=== PATIENT | male | born 1945 | race Caucasian/White ===

== ENCOUNTER 2020-03-05 14:14 | Outpatient (CLI) | payer OTHER, SELFPAY ==
--- NOTE | ~2020-03-05 | CT_ITS ---
EXAMINATION:CT lung screening DATE: 03/05/2020 15:17 INDICATION: Personal history of tobacco dependence. Smoker who quit 12 years ago with 50 pack year hi story. TECHNIQUE: Computed tomography (CT) of the chest was performed without intravenous contrast. Automate d exposure control and iterative reconstruction technique were employed. The dose-length product (DLP ) was 225.47 mGy-cm. COMPARISON: Chest CT 03/14/2018 FINDINGS: There is moderate emphysema. There is mild atelectasis bilaterally. Calcified right lung no dules are consistent with old granulomatous disease. There is a stable 6 mm nodule in left lower lobe . No pleural effusion. The heart size is normal. There are coronary artery calcifications. There are calcifications of the aortic valve. No pericardial effusion. There is diffuse hepatic steatosis. Ther e is moderate thoracic spondylosis. IMPRESSION: 1. Lung-RADS category 2: Benign appearance or behavior. Continue annual screening with noncontrast lo w-dose chest CT in 12 months. Reviewed, dictated and finalized at location B. RAL REPAIRER IMPRESSION: 1. Lung-RADS category 2: Benign appearance or behavior. Continue annual screeni ng with noncontrast low-dose chest CT in 12 months.
--- NOTE | ~2020-03-05 | US_ITS ---
EXAMINATION: US arterial ankle brachial ind DATE: 03/05/2020 15:08 INDICATION: Peripheral vascular disease. TECHNIQUE: Segmental pressures and plethysmographic and Doppler waveforms of the brachial and lower e xtremity arteries were obtained. COMPARISON: None. FINDINGS: Right and left brachial artery pressures were unable to be obtained due to inability to occlude the v essels. The automated blood pressure seen reading at the conclusion of the exam the left brachial art alberta pressure was 177 mmHg . The right ankle-brachial index (BRUNO) was unable to be obtained due to inability to occlude the vessel s at the right ankle (normal >= 0.9-1.0). The right great toe-brachial index (TBI) is 0.86 (normal >= 0.65). Arterial Doppler waveforms are biphasic with brisk systolic upstrokes at both the right poste rior tibial and dorsalis pedis arteries. The left BRUNO was unable to be obtained due to inability to occlude the vessels at the left ankle. The left TBI is 0.05. Arterial Doppler waveforms are biphasic with brisk systolic upstrokes at both the left posterior tibial and dorsalis pedis arteries. IMPRESSION: 1. Very limited study due to inability to occlude the vessels at either upper arm arthritis of the le ft or right ankles which could be due to either high pressures and/or vessel wall calcification. Toe brachial indices are based upon pressure measurement obtained at the left arm with automated blood pr essure machine. 2. No hemodynamically significant arterial occlusive disease to the right lower limb with normal righ t TBI. 2. Severely decreased left TBI but with brisk systolic upstrokes at both the left posterior tibial an d dorsalis pedis arteries. Reviewed, dictated and finalized at location A. INE I CUTTER IMPRESSION: 1. Very limited study due to inability to occlude the vessels at either upper a rm arthritis of the left or right ankles which could be due to either high pres sures and/or vessel wall calcification. Toe brachial indices are based upon pre ssure measurement obtained at the left arm with automated blood pressure perla e. 2. No hemodynamically significant arterial occlusive disease to the right lower limb with normal right TBI. 2. Severely decreased left TBI but with brisk systolic upstrokes at both the le ft posterior tibial and dorsalis pedis arteries.
== END 2020-03-05 14:15 | disposition home or self-care (01) ==
PROVIDERS: PCP Internal Medicine; Visit Provider Internal Medicine
DX: Z12.2 Encounter for screening for malignant neoplasm of respiratory organs (principal); Z87.891 Personal history of nicotine dependence; I73.9 Peripheral vascular disease, unspecified
CPT/HCPCS: 71271; 93922

== ENCOUNTER 2021-02-09 12:57 | Outpatient (CLI) | payer OTHER, SELFPAY ==
[2021-02-09 13:27] LABS: Anion Gap 11 mmol/L (8-16); Blood Urea Nitrogen 18 mg/dL (9-20); Calcium 9.4 mg/dL (8.4-10.2); Carbon Dioxide 23 mmol/L (22-30); Chloride 103 mmol/L (98-107); Estimated Glomerular Filt Rate 59; Glucose 127 mg/dL (65-110); Potassium 4.3 mmol/L (3.4-5.0); Sodium 137 mmol/L (137-145)
== END 2021-02-09 12:58 | disposition home or self-care (01) ==
LOC: ANHSURGERY 12:58
PROVIDERS: Anesthesiology; PCP Internal Medicine; Visit Provider Plastic Surgery
DX: E11.65 Type 2 diabetes mellitus with hyperglycemia (principal); Z01.818 Encounter for other preprocedural examination
CPT/HCPCS: 36415; 80048

== ENCOUNTER 2021-02-12 00:53 | Day surgery (SDC) | payer OTHER, SELFPAY ==
--- NOTE | 2021-02-04 09:38 | PC.NURSE ---
Report to the Outpatient Waiting Room, entrance under the green pavilion located off [facility], at time _8:15AM on date _02/12/21 . OR Time: __10:15AM . - You and your visitor will be asked a series of questions to screen for COVID 19 for your protection. - A mask is required within the hospital. - Only one visitor is allowed at this time. Patient visitors will be guided where to wait when not with patient. Preoperative COVID Testing Requirements: No COVID Test needed if: (proof is required; if not received patient will have Rapid Test prior to entry) - Patient has received COVID Vaccine at least 14 days prior to procedure date or - Patient has positive COVID test result within last 90 days of surgery date. COVID Test needed if above criteria is not met If not COVID vaccinated a COVID test must be conducted within 72 hours of surgery and patient is asked to isolate self from time of testing until procedure. You will go to the [facility] Testing Site for your COVID testing. The [facility] is located at the corner of [address] [facility]. You will only be called if COVID results are positive and your surgeon may reschedule your elective surgery date. Patients may have clear liquids (water, carbonated beverages, clear teas, apple juice) until 3 hours prior to surgery with a maximum of 20 ounces. - No food from midnight until time of surgery - Infants may have breast milk until 4 hours before surgery, formula 6 hours prior to surgery. - Children will be allowed to drink immediately following surgery. If applicable, please bring a bottle or sippy cup to assist with drinking. Juice, water, soda, and popsicles are readily available. For infants on formula, please bring formula the day of surgery. Pacifiers are allowed. Take the following medications with a SIP of water the morning of surgery: ___AMLODIPINE, SPIRIVA INHALER Medications to discontinue per physician ____ALL VITAMINS/SUPPLEMENTS 3 DAYS PRE-OP Date to take last dose 02/08/[address] ELLINGTON TO CONT. ASPIRIN AND PLAVIX Please no make-up, nail lithuanian, hairspray, perfume, deodorant, or body powder the day of surgery. No jewelry (including any body piercings) or valuables the day of surgery, leave them at home. Please take a shower or bath the night before, or the morning of, surgery with an antibacterial soap. Wear comfortable, loose fitting clothing. Children are encouraged to wear pajamas. - Jewelry must be removed prior to entering the operating room. Rings and piercings that are not removed may be cut off. - The hospital will not accept responsibility for valuables. - Please leave all valuables, including medications, at home the day of surgery. If you are going home after surgery, a licensed van driver helper must drive you home. - NO public transportation without another adult. - We recommend that an adult stay with you for 24 hours following discharge. - We also recommend that you do not drive, make important decision, drink alcoholic beverages, or take any drugs that were not prescribed by your health care provider for at least 24 hours after your discharge time. For Pediatric surgeries, we recommend two adults accompany the child home (only one inside the building at this time). Follow any additional instructions given to you from your surgeon. Telephone instructions given to ___PATIENT and asked if any additional questions and then verbalized understanding. Patient advised to call surgeon office or pre surgery nurse liaison [phone] if any additional questions.
--- NOTE | 2021-02-04 09:42 | PC.NURSE ---
Report to the Outpatient Waiting Room, entrance under the green pavilion located off [facility], at time _8:15AM____ on date . OR Time: __10:15AM . - You and your visitor will be asked a series of questions to screen for COVID 19 for your protection. - A mask is required within the hospital. - Only one visitor is allowed at this time. Patient visitors will be guided where to wait when not with patient. Preoperative COVID Testing Requirements: No COVID Test needed if: (proof is required; if not received patient will have Rapid Test prior to entry) - Patient has received COVID Vaccine at least 14 days prior to procedure date or - Patient has positive COVID test result within last 90 days of surgery date. COVID Test needed if above criteria is not met If not COVID vaccinated a COVID test must be conducted within 72 hours of surgery and patient is asked to isolate self from time of testing until procedure. You will go to the [facility] Testing Site for your COVID testing. [facility] is located at the corner of [address] [facility]. You will only be called if COVID results are positive and your surgeon may reschedule your elective surgery date. Patients may have clear liquids (water, carbonated beverages, clear teas, apple juice) until 3 hours prior to surgery with a maximum of 20 ounces. - No food from midnight until time of surgery - Infants may have breast milk until 4 hours before surgery, infant formula 6 hours prior to surgery. - Children will be allowed to drink immediately following surgery. If applicable, please bring a bottle or sippy cup to assist with drinking. Juice, water, soda, and popsicles are readily available. For infants on formula, please bring formula the day of surgery. Pacifiers are allowed. Take the following medications with a SIP of water the morning of surgery: __AMLODIPINE, SPIRIVA__INHALER Medications to discontinue per physician ALL VITAMINS/SUPPLEMENTS 3 DAYS PRE-OP Date to take last dose 02/08/21 ORDER ON CHART FOR PT TO CONTINUE PLAVIX & ASPIRIN PER DR ELLINGTON Please no make-up, nail japanese, hairspray, perfume, deodorant, or body powder the day of surgery. No jewelry (including any body piercings) or valuables the day of surgery, leave them at home. Please take a shower or bath the night before, or the morning of, surgery with an antibacterial soap. Wear comfortable, loose fitting clothing. Children are encouraged to wear pajamas. - Jewelry must be removed prior to entering the operating room. Rings and piercings that are not removed may be cut off. - The hospital will not accept responsibility for valuables. - Please leave all valuables, including medications, at home the day of surgery. If you are going home after surgery, a licensed p d driver must drive you home. - NO public transportation without another adult. - We recommend that an adult stay with you for 24 hours following discharge. - We also recommend that you do not drive, make important decision, drink alcoholic beverages, or take any drugs that were not prescribed by your health care provider for at least 24 hours after your discharge time. For Pediatric surgeries, we recommend two adults accompany the child home (only one inside the building at this time). Follow any additional instructions given to you from your surgeon. Telephone instructions given to ___PATIENT and asked if any additional questions and then verbalized understanding. Patient advised to call surgeon office or pre surgery nurse liaison [phone] if any additional questions.
--- NOTE | 2021-02-04 09:46 | PC.NURSE ---
Report to the Outpatient Waiting Room, entrance under the green pavilion located off [facility], at time __8:15AM on date _02/12/21 . OR Time: __10:15AM . - You and your visitor will be asked a series of questions to screen for COVID 19 for your protection. - A mask is required within the hospital. - Only one visitor is allowed at this time. Patient visitors will be guided where to wait when not with patient. Preoperative COVID Testing Requirements: No COVID Test needed if: (proof is required; if not received patient will have Rapid Test prior to entry) - Patient has received COVID Vaccine at least 14 days prior to procedure date or - Patient has positive COVID test result within last 90 days of surgery date. COVID Test needed if above criteria is not met If not COVID vaccinated a COVID test must be conducted within 72 hours of surgery and patient is asked to isolate self from time of testing until procedure. You will go to the [facility] [facility] Testing Site for your COVID testing. The [facility] is located at the corner of [address] [facility]. You will only be called if COVID results are positive and your surgeon may reschedule your elective surgery date. Patients may have clear liquids (water, carbonated beverages, clear teas, apple juice) until 3 hours prior to surgery with a maximum of 20 ounces. - No food from midnight until time of surgery - Infants may have breast milk until 4 hours before surgery, formula 6 hours prior to surgery. - Children will be allowed to drink immediately following surgery. If applicable, please bring a bottle or sippy cup to assist with drinking. Juice, water, soda, and popsicles are readily available. For infants on formula, please bring formula the day of surgery. Pacifiers are allowed. Take the following medications with a SIP of water the morning of surgery: __AMLODIPINE, SPIRIVA INHALER Medications to discontinue per physician ALL VITAMINS/SUPPLEMENTS 3 DAYS PRE-OP Date to take last dose 02/08/21 ORDER ON CHART TO CONTINUE PLAVIX & ASPIRIN PER DR ELLINGTON Please no make-up, nail micronesian, hairspray, perfume, deodorant, or body powder the day of surgery. No jewelry (including any body piercings) or valuables the day of surgery, leave them at home. Please take a shower or bath the night before, or the morning of, surgery with an antibacterial soap. Wear comfortable, loose fitting clothing. Children are encouraged to wear pajamas. - Jewelry must be removed prior to entering the operating room. Rings and piercings that are not removed may be cut off. - The hospital will not accept responsibility for valuables. - Please leave all valuables, including medications, at home the day of surgery. If you are going home after surgery, a licensed team truck driver must drive you home. - NO public transportation without another adult. - We recommend that an adult stay with you for 24 hours following discharge. - We also recommend that you do not drive, make important decision, drink alcoholic beverages, or take any drugs that were not prescribed by your health care provider for at least 24 hours after your discharge time. For Pediatric surgeries, we recommend two adults accompany the child home (only one inside the building at this time). Follow any additional instructions given to you from your surgeon. Telephone instructions given to ___PATIENT and asked if any additional questions and then verbalized understanding. Patient advised to call surgeon office or pre surgery nurse liaison [phone] if any additional questions.
[2021-02-04 13:15] VITALS: BMI 29.9
--- NOTE | 2021-02-12 07:12 | WPDHPUPDATE1 ---
History and Physical Update Update Date/Time: 02/12/21 07:12 History and Physical has been reviewed, including an updated exam of the patient. There are NO changes in the patient's condition. Risks, benefits, and alternatives have been discussed and questions answered. Patient agrees to proceed with procedure.
[2021-02-12 08:06] VITALS: BMI 29.5
[2021-02-12 08:30] VITALS: BP 184/76; PULSE 58; RESP 18; TEMP 36.4; O2SAT 97
[2021-02-12 08:30] LABS: Glucose Point of Care 143 mg/dl (65-105)
[2021-02-12] MEDS: LACTATED RINGERS 1,000 ML 30 ML IV CONT (08:35)
--- NOTE | 2021-02-12 08:43 | WPDANESEPPF ---
Anes - Initial Pre Proc Eval Procedure: Operation Date: 02/12/21 10:15 Proposed Procedures p Left Open Carpal Tunnel Release - Peter Benitez MD Date/Time: 02/12/21 08:43 Surgeon: Peter Benitez MD Pre Op Diagnosis: left carpal tunnel syndrome Patient Data Age: 75 Gender: M Height: 1.88 m Weight: 104.2 kg Allergies Allergy/AdvReac Type Severity Reaction Status Date / Time No Known Allergies Allergy Verified 02/12/21 08:21 Home Medications Medication Instructions Recorded Confirmed Type aspirin 81 mg tablet,delayed 81 mg PO DAILY 06/12/19 02/04/21 History release tiotropium bromide 2.5 1 puff INHALATION QID 06/12/19 02/04/21 History mcg/actuation mist for inhalation atorvastatin 20 mg tablet 20 mg PO DAILY #90 tablet 09/05/20 02/04/21 Rx omeprazole 40 mg capsule,delayed 40 mg PO DAILY #90 cap 11/26/20 02/04/21 Rx release amlodipine 2.5 mg PO QAM 02/04/21 02/04/21 History cholecalciferol (vitamin D3) 50 mcg PO DAILY 02/04/21 02/04/21 History clopidogrel 75 mg PO DAILY 02/04/21 02/04/21 History finasteride 5 mg PO DAILY 02/04/21 02/04/21 History eefhsnqb-ftwyx-txl 149-hyal ac 1 tablet PO BID 02/04/21 02/04/21 History [Glucos Chond Cplx Advanced] losartan 50 mg PO QAM 02/04/21 02/04/21 History metformin 500 mg PO BID 02/04/21 02/04/21 History multivitamin [Daily Multiple] 1 tablet PO DAILY 02/04/21 02/04/21 History omega-3 fatty acids [Fish Oil] 1,000 mg PO BID 02/04/21 02/04/21 History tamsulosin 0.4 mg PO DAILY 02/04/21 02/04/21 History vitamin E 1,000 unit PO DAILY 02/04/21 02/04/21 History Laboratory Tests 02/12/21 08:25 POC Capillary Glucose 143 mg/dl H mg/dl (65-105) Patient hx anesthesia problems: none Family hx anesthesia problems: none Results Review: All pre-operative results and documents have been reviewed as part of the pre-operative evaluation. [facility] Past Medical History Medical History Actinic keratitis Surgical History Surgical History (Updated 02/12/21 @ 08:47 by Efrain Valadez MD) H/O carotid endarterectomy Family History Family History Mother Patient's mother is Sibling Patient's brother is Social History Social History Smoking packs per day: 1 Smoking cigarettes per day: 20.0 Years smoked: 50 Smoking pack-years: 50.00 Smoking status: Former smoker Tobacco type: cigarettes, pipe and cigars Second hand tobacco smoke exposure: No Smoking end date: 02/15/04 Alcohol intake: current Drinks per week: 3 Substance use: never Substance use type: does not use Living arrangements: alone Spiritual care concerns: No Anes - Eval Final PreProcedure Day of Procedure 02/12/21 08:43 Patient weight: overweight Heart: regular rate and rhythm Lungs: clear to auscultation Airway: Mallampati scale class II and other (dentures) Neurological: alert and oriented Last oral intake: >/= 8 hours ASA classification: III Emergent: no Anesthetic plan: proceed Anesthesia type and monitoring: general and standard monitoring Results Review: All pre-operative results and documents have been reviewed as part of the pre-operative evaluation. Informed Consent: The patient's anesthetic plan and its attendant risks and benefits were discussed with the patient/family/POA. Questions were solicited and answers provided to the satisfaction of the patient/family/POA.
[2021-02-12] MEDS: LIDO 1%/EPINEPHRINE 1:100,000 50 ML VIAL 10 ML INFILTRATE (10:09)
[2021-02-12] MEDS: BACITRACIN OINTMENT 15 GM TUBE 1 APPLIC TOPICAL (10:13)
[2021-02-12 10:21] VITALS: BP 163/98; PULSE 84; RESP 21; O2SAT 96
--- NOTE | 2021-02-12 10:27 | W.PM.PROC2 ---
Procedure Note - Detailed Date of Procedure 02/12/21 Pre-op Diagnosis left carpal tunnel syndrome Post-op Diagnosis same Procedure Performed Left open carpal tunnel release Surgeon Peter Benitez MD Anesthesia MAC Description of Procedure The right volar wrist was marked on the patient waiting in the holding area. He was transported to the operating room and placed supine on the operating table. The time-out was held confirmed. The extremity was prepped and draped in usual fashion. The site was remarked and locally infiltrated with 1% lidocaine with epinephrine. The tourniquet was elevated to 250 mmHg. The incision was made as marked on the palm dissection carried bluntly through the subcu tissue to the palmar aponeurosis. This was dissected bluntly and the carpal retinaculum was incised with a 15. Blade. Under 3 point retraction the ligament divided distally and proximally for complete release. The skin wound was closed with interrupted 4-0 nylon suture the usual bandage was applied. He is discharged from the operating room stable condition. He has instructions in wound care and follow-up. He was prescribed a prescription for hydrocodone 5/325 7. Estimated Blood Loss 0 Tourniquet Time 4 Drains No Packing No Pathology none sent Complications No immediate complications Condition stable Disposition same day
[2021-02-12 10:41] LABS: Glucose Point of Care 129 mg/dl (65-105)
[2021-02-12 10:50] VITALS: BP 150/60; PULSE 57; RESP 18
== END 2021-02-12 11:14 | disposition home or self-care (01) ==
PROVIDERS: PCP Internal Medicine; Visit Provider Plastic Surgery
PROC: (CPT 64721; principal; 2021-02-12 10:15)
DX: G56.02 Carpal tunnel syndrome, left upper limb (principal); Z79.82 Long term (current) use of aspirin; Z79.51 Long term (current) use of inhaled steroids; Z87.891 Personal history of nicotine dependence; Z79.84 Long term (current) use of oral hypoglycemic drugs
CPT/HCPCS: 64721; 36415; 80048; 82948; A9270; J2704; J7120

== ENCOUNTER 2021-09-16 05:24 | Emergency (ER) | payer OTHER, SELFPAY ==
[2021-09-16] VITALS (9 sets, daily range): BP systolic 121–137; BP diastolic 64–81; PULSE 66–94; RESP 13–20; TEMP 36.8; O2SAT 94–97
--- NOTE | ~2021-09-16 | XR_ITS ---
EXAMINATION: XR chest 1V portable DATE: 09/16/2021 06:06 INDICATION: Shortness of breath. COVID-19 pneumonia. TECHNIQUE: A single frontal view of the chest was obtained on 2 radiographs. COMPARISON: Chest CT 03/05/2020 FINDINGS: There are lucencies in the lungs, consistent with emphysema. There are mild airspace opacit ies in the lower lung zones. No pleural effusion or pneumothorax. The heart size is normal. IMPRESSION: 1. Mild airspace opacities in the lower lung zones, consistent with atelectasis versus pneumonia. 2. Emphysema. Reviewed, dictated and finalized at location A.
[2021-09-16] MEDS: SODIUM CHLORIDE 0.9% IV 1,000 ML 999 ML IV CONT (05:50)
[2021-09-16 06:01] LABS: Basophils Percent Auto 0.2 % (0.2-1.2); Eosinophils Absolute Auto 0.2 K/mm3 (0-0.3); Eosinophils Percent Auto 3.5 % (0-4.4); Hematocrit 43.3 % (42.0-52.0); Hemoglobin 14.2 g/dL (14.0-18.0); Immature Granulocyte Absolute 0.01 K/mm3 (0.00-0.031); Immature Granulocyte Percent A 0.2 % (0-0.5); Lymphocytes Absolute Auto 1.39 K/mm3 (0.9-3.2); Lymphocytes Percent Auto 24.4 % (18.3-44.2); Mean Corpuscular HGB Conc 32.8 g/dl (32-36); Mean Corpuscular Hemoglobin 30.5 pg (26-34); Mean Corpuscular Volume 93.1 fl (80-100); Mean Platelet Volume 9.9 fl (7.4-10.4); Monocytes Absolute Auto 0.6 K/mm3 (0.1-0.6); Monocytes Percent Auto 10.4 % (2.6-8.5); Neutrophils Absolute Auto 3.5 K/mm3 (1.3-6.7); Neutrophils Percent Auto 61.3 % (45.5-73.1); Platelet Count Result 179 k/mm3 (150-375); Red Blood Count 4.65 M/mm3 (4.6-6.20); Red Cell Distribution Width 14.3 % (11.5-14.5); White Blood Count 5.7 K/mm3 (4.5-10.0)
[2021-09-16 06:13] LABS: Anion Gap 14 mmol/L (8-16); Blood Urea Nitrogen 16 mg/dL (9-20); Calcium 8.6 mg/dL (8.4-10.2); Carbon Dioxide 22 mmol/L (22-30); Chloride 101 mmol/L (98-107); Estimated Glomerular Filt Rate > 60; Glucose 138 mg/dL (65-110); Potassium 4.2 mmol/L (3.4-5.0); Sodium 137 mmol/L (137-145)
--- NOTE | 2021-09-16 07:01 | PC.NURSE ---
Patient refuses to do ortho BP at this time because he is to short of breath
--- NOTE | 2021-09-16 07:11 | PC.NURSE ---
Patient report received from BRANDEE Simon. All questions answered and care of patient assumed.
--- NOTE | 2021-09-16 07:16 | ED.SOB ---
HPI - SOB/Dyspnea General Chief Complaint: Shortness of Breath/Dyspnea Stated Complaint: SOB, COVID + 09/14/21 Time Seen by Provider: 09/16/21 05:29 History of Present Illness HPI Narrative: Patient is a 75-year-old male who presents to the ER with shortness of breath. Reports he was laying down when he just felt very short of breath and thought he should come to the ER to be evaluated. He was diagnosed with COVID-19 on 09/13/2021. He does have some mild cough. No fevers or chills. No congestion or drainage. He is not on Paxlovid or any other antiviral as his primary care doctor did not prescribe 1 to him. Patient reports no exertional decline. He is not oxygen dependent and has not been found to be hypoxic. Related Data Home Medications Medication Instructions Recorded Confirmed aspirin 81 mg tablet,delayed 81 mg PO DAILY 06/12/19 08/05/21 release (Adult Low Dose Aspirin) tiotropium bromide 2.5 1 puff inhalation QID 06/12/19 08/05/21 mcg/actuation mist for inhalation (Spiriva Respimat) cholecalciferol (vitamin D3) 50 50 mcg PO DAILY 02/04/21 08/05/21 mcg (2,000 unit) tablet clopidogrel 75 mg tablet 75 mg PO DAILY 02/04/21 08/05/21 pmxttythwqf-lbwfoqjle-tzsr498-hyal 1 tablet PO BID 02/04/21 08/05/21 750 mg-100 mg-125 mg-1.65 mg tablet (Glucosamine Chondroit Complx Advan) multivitamin 1 tablet PO DAILY 02/04/21 08/05/21 omega-3 fatty acids 1,000 mg PO BID 02/04/21 08/05/21 vitamin E 670 mg (1,000 unit) 1,000 unit PO DAILY 02/04/21 08/05/21 capsule mecobalamin (vitamin B12) 1,000 1,000 mcg PO DAILY 08/05/21 08/05/21 mcg chewable tablet (B12 Active) Allergies Allergy/AdvReac Type Severity Reaction Status Date / Time No Known Allergies Allergy Verified 08/05/21 13:41 Review of Systems Review of Systems: All systems reviewed & are unremarkable except as noted in HPI and below Constitutional: Constitutional: Denies chills and Denies fever(s) ENT: Denies nasal congestion and Denies sore throat Cardiovascular: Cardiovascular: Denies chest pain, Denies rapid heart rate and Denies radiating jaw, neck or arm pain Respiratory: Respiratory: Reports cough and Reports dyspnea Gastrointestinal: Gastrointestinal: Denies abdominal pain, Denies nausea and Denies vomiting Musculoskeletal: Musculoskeletal: Denies myalgias Neurologic: Denies headache(s) and Denies focal weakness PMFSH Past Medical History Medical History Actinic keratitis Surgical History Surgical History H/O carotid endarterectomy Family History Family History Mother Patient's mother is Sibling Patient's brother is Social History Social History Smoking packs per day: 1 Smoking cigarettes per day: 20.0 Years smoked: 50 Smoking pack-years: 50.00 Smoking status: Former smoker Tobacco type: cigarettes, pipe and cigars Second hand tobacco smoke exposure: No Smoking end date: 02/15/04 Alcohol intake: current Drinks per week: 3 Substance use: never Substance use type: does not use Spiritual care concerns: No Exam Narrative: GENERAL: Well-appearing, well-nourished, and in no acute distress. HEAD: Normocephalic, atraumatic. EYES: PERRL and EOMI. CHEST: Clear to auscultation. No respiratory distress. HEART: Regular rate and rhythm. Normal peripheral pulses. ABDOMEN: Soft, nontender, nondistended. EXTREMITIES: Normal range of motion. No edema. SKIN: Warm, dry, no rash. NEURO: Alert and oriented x3. PSYCH: Normal mood and affect. Course Course Emergency Course: Patient resting comfortably. No hypoxia. X-ray with atelectasis versus pneumonia. Will prescribe molnupiravir as it does not interact with plavix. Vital Signs Vital signs:
== END 2021-09-16 08:02 | disposition home or self-care (01) ==
PROVIDERS: Emergency Provider Emergency Medicine; PCP Internal Medicine
DX: U07.1 COVID-19 (principal)
CPT/HCPCS: 36415; 71045; 80048; 85025; 96360; 99283; J7030

== ENCOUNTER 2021-09-23 13:06 | Outpatient (CLI) | payer OTHER, SELFPAY ==
--- NOTE | ~2021-09-23 | XR_ITS ---
EXAM: XR abdomen/kub 1V DATE: 09/23/2021 13:23 HISTORY: K59.00 - Constipation, unspecified . COMPARISON: None available. FINDINGS: Clear lung bases. Normal bowel gas pattern. No organomegaly. Scattered vascular calcificat ions including phleboliths. Calcifications project over the renal shadows, may represent nephroliths or artifact. Multilevel degenerative disc disease spine. Marked enthesopathy about the pelvis. IMPRESSION: No radiographic evidence of obstruction or ileus. Reviewed, dictated and finalized at location K.
== END 2021-09-23 13:07 | disposition home or self-care (01) ==
PROVIDERS: PCP Internal Medicine; Visit Provider Internal Medicine
DX: K59.00 Constipation, unspecified (principal)
CPT/HCPCS: 74018

== ENCOUNTER 2021-11-10 00:26 | Day surgery (SDC) | payer OTHER, SELFPAY ==
[2021-11-02 15:26] VITALS: BMI 29.4
--- NOTE | 2021-11-09 11:04 | PC.NURSE ---
SEVERAL ATTEMPTS MADE TO REACH OUT TO DR. SAMAYOA'S OFFICE AT [facility] REGARDING PTS PLAVIX. NOTES RECEIVED FROM CLINIC DO NOT CLEARLY STATE THAT PT IS TO FINISH PLAVIX ON 10/27/21 PT THINKS HE IS TO DO HIS PRESCRIPTION RAN OUT OF THAT DATE, NOTE FROM OFFICE IMPLYS PT TO REMAIN ON ASA, PLAVIX AND ATORVASTATIN AND RETURN TO OFFICE IN 6 MON AFTER 08/2021 APPT. PT CALLED AND SPOKE WITH HIM REGARDING MY CONCERN THAT HE MAY STILL NEED TO BE ON THE PLAVIX, HE WILL SEE PRACTITIONER ON TUE. 11/11/21 AT [facility] AND WILL GO OVER THIS WITH HER.
[2021-11-10 12:36] VITALS: BP 185/73; PULSE 65; RESP 18; TEMP 36; O2SAT 98; BMI 28.5
[2021-11-10] MEDS: LACTATED RINGERS 1,000 ML 150 ML IV CONT (12:51)
[2021-11-10 13:05] LABS: Glucose Point of Care 129 mg/dl (65-105)
--- NOTE | 2021-11-10 13:38 | WPDANESEPPF ---
Anes - Initial Pre Proc Eval Procedure: Operation Date: 11/10/21 13:30 Proposed Procedures p Colonoscopy - Giovanni Toure MD Date/Time: 11/10/21 13:38 Surgeon: Giovanni Toure MD Pre Op Diagnosis: change in bowel habits,const.,hx of colon polyps Patient Data Age: 75 Gender: M Height: 1.88 m Weight: 100.9 kg Last Vital Signs Temp 96.8 F L 11/10/21 12:36 Pulse 65 11/10/21 12:36 Resp 18 11/10/21 12:36 BP 185/73 H 11/10/21 12:36 Pulse Ox 98 11/10/21 12:36 O2 Del Method Room Air 11/10/21 12:36 Allergies Allergy/AdvReac Type Severity Reaction Status Date / Time No Known Allergies Allergy Verified 11/10/21 12:34 Home Medications Medication Instructions Recorded Confirmed Type aspirin 81 mg tablet,delayed 81 mg PO DAILY 06/12/19 11/10/21 History release (Adult Low Dose Aspirin) tiotropium bromide 2.5 1 puff inhalation QID 06/12/19 11/10/21 History mcg/actuation mist for inhalation (Spiriva Respimat) cholecalciferol (vitamin D3) 50 50 mcg PO DAILY 02/04/21 11/10/21 History mcg (2,000 unit) tablet [id number]-[id number]-hyal 1 tablet PO BID 02/04/21 11/10/21 History 750 mg-100 mg-125 mg-1.65 mg tablet (Glucosamine Chondroit Complx Advan) multivitamin 1 tablet PO DAILY 02/04/21 11/10/21 History omega-3 fatty acids 1,000 mg PO BID 02/04/21 11/10/21 History vitamin E 670 mg (1,000 unit) 1,000 unit PO DAILY 02/04/21 11/10/21 History capsule metformin 500 mg tablet 500 mg PO BID #180 tabs 06/03/21 11/10/21 Rx mecobalamin (vitamin B12) 1,000 1,000 mcg PO DAILY 08/05/21 11/10/21 History mcg chewable tablet (B12 Active) atorvastatin 20 mg tablet 20 mg PO DAILY #90 tabs 08/13/21 11/10/21 Rx finasteride 5 mg tablet 5 mg PO DAILY #90 tabs 08/13/21 11/10/21 Rx losartan 50 mg tablet 50 mg PO QAM #90 tabs 08/14/21 11/10/21 Rx amlodipine 10 mg tablet 10 mg PO DAILY #90 tabs 08/31/21 11/10/21 Rx tamsulosin 0.4 mg capsule 0.4 mg PO DAILY #90 caps 09/23/21 11/10/21 Rx omeprazole 40 mg capsule,delayed 40 mg PO DAILY #90 caps 11/10/21 11/10/21 Rx release Laboratory Tests 11/10/21 12:48 POC Capillary Glucose 129 mg/dl H mg/dl (65-105) Patient hx anesthesia problems: none Family hx anesthesia problems: none Results Review: All pre-operative results and documents have been reviewed as part of the pre-operative evaluation. [facility] Past Medical History Medical History (Updated 10/15/21 @ 15:06 by Giovanni Toure MD) Actinic keratitis Adenomatous colon polyp Surgical History Surgical History H/O carotid endarterectomy Family History Family History Mother Patient's mother is Sibling Patient's brother is Social History Social History Smoking packs per day: 1 Smoking cigarettes per day: 20.0 Years smoked: 50 Smoking pack-years: 50.00 Smoking status: Former smoker Tobacco type: cigarettes Second hand tobacco smoke exposure: No Smoking end date: 02/15/04 Alcohol intake: current Drinks per week: 3 Substance use: never Substance use type: does not use Living arrangements: alone Spiritual care concerns: No Anes - Eval Final PreProcedure Day of Procedure 11/10/21 13:38 Patient weight: normal Heart: regular rate and rhythm Lungs: clear to auscultation Airway: Mallampati scale class II Neurological: alert and oriented Last oral intake: >/= 8 hours ASA classification: III Emergent: no Anesthetic plan: proceed Anesthesia type and monitoring: general GIVS and standard monitoring Results Review: All pre-operative results and documents have been reviewed as part of the pre-operative evaluation. Informed Consent: The patient's anesthetic plan and its
--- NOTE | 2021-11-10 13:49 | WPDHPUPDATE1 ---
History and Physical Update Update Date/Time: 11/10/21 13:49 History and Physical has been reviewed, including an updated exam of the patient. There are NO changes in the patient's condition. Risks, benefits, and alternatives have been discussed and questions answered. Patient agrees to proceed with procedure.
[2021-11-10 14:15] VITALS: BP 96/56; PULSE 55; RESP 16; O2SAT 96
[2021-11-10 14:25] VITALS: BP 118/64; PULSE 58; RESP 21; O2SAT 95
[2021-11-10 14:35] VITALS: BP 129/72; PULSE 59; RESP 13; O2SAT 97
== END 2021-11-10 14:44 | disposition home or self-care (01) ==
PROVIDERS: PCP Internal Medicine; Visit Provider Internal Medicine Gastroenterology
PROC: 0DJD8ZZ Inspection of Lower Intestinal Tract, Via Natural or Artificial Opening Endoscopic (ICD-10-PCS; CPT 45378; principal; 2021-11-10 13:30)
DX: Z12.11 Encounter for screening for malignant neoplasm of colon (principal); D12.0 Benign neoplasm of cecum; D12.4 Benign neoplasm of descending colon; D12.3 Benign neoplasm of transverse colon; K64.8 Other hemorrhoids; K57.30 Diverticulosis of large intestine without perforation or abscess without bleeding; Z87.891 Personal history of nicotine dependence; K59.00 Constipation, unspecified; I73.9 Peripheral vascular disease, unspecified; J44.9 Chronic obstructive pulmonary disease, unspecified; I10 Essential (primary) hypertension; Z79.82 Long term (current) use of aspirin; Z79.84 Long term (current) use of oral hypoglycemic drugs
CPT/HCPCS: 45385; 82948; 88305; J2001; J2704; J7120

== ENCOUNTER 2022-01-05 08:52 | Outpatient (CLI) | payer OTHER, SELFPAY ==
--- NOTE | 2022-01-05 11:30 | NEURO_ITS ---
Impression: # History of left carpal tunnel release. Complaints of numbness in all fingers of left hand. # Severe left Carpal Tunnel Syndrome with chronic neurogenic changes in left abductor pollicis brevis. 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 # Clinical correlation recommended. Motor Nerve Conduction Upper Extremities Median Nerve Conduction Velocity (m/sec) Terminal Latency (msec) Response Voltage(mV) Elbow-Wrist Wrist Elbow Wrist Right Left 37 5.4 0.1 0.4 Ulnar Nerve Conduction Velocity (m/sec) Terminal Latency (msec) Response Voltage(mV) Above Elbow Below Elbow Wrist Above Elbow Below Elbow Wrist Right Left 48 64 3.1 4 5 6 F-Wave Latency Median (ms) Ulnar (ms) Right Left Dispersed Response 32.1 Sensory Nerve Conduction Upper Extremities Median Nerve Stimulation Terminal Latency (msec) Wrist/Digit Response Voltage (uV) Wrist Right Left 7.3/7.7 22/27 Ulnar Nerve Stimulation Terminal Latency (msec) Wrist/Digit Response Voltage (uV) Wrist Right Left 3.1 15 Radial Nerve Terminal Latency (msec) Response Voltage(mV) Right Left 2.4 27 Left Right Muscles Examined Fibrillation Fasciculation Recruitment Voltage Duration Left Right Left Right Left Right Left Right Left Right Deltoid Biceps X Brachioradialis Triceps X Pronator Teres X Ext Indicis X Ext Digitorum X Abd Poll Brev Reduced X 1st Dorsal Interosseus Paraspinals MTDD
== END 2022-01-05 08:53 | disposition home or self-care (01) ==
PROVIDERS: PCP Internal Medicine; Visit Provider Plastic Surgery
DX: R29.818 Other symptoms and signs involving the nervous system (principal); R20.1 Hypoesthesia of skin; R20.8 Other disturbances of skin sensation
CPT/HCPCS: 95886; 95909

== ENCOUNTER 2022-01-18 15:49 | Inpatient (IN) | payer OTHER, SELFPAY ==
[2022-01-18] VITALS (10 sets, daily range): BP systolic 124–153; BP diastolic 63–81; PULSE 54–90; RESP 12–20; TEMP 36.1–36.6; O2SAT 94–98; BMI 29.8
--- NOTE | ~2022-01-18 | XR_ITS ---
EXAMINATION: XR chest 2V Exam Date/Time: 01/18/2022 16:00 VISUAL PRESENTATION MANAGER HISTORY: chest pain, FOR 3 MONTHS, TINGLING IN BOTH ARMS near syncope Comparison: 09/16/2021, CT lung screening 03/05/2020. RESULT: Lines, tubes, and devices: None. Lungs and pleura: Emphysematous and senescent change. Mildly increased mid and lower lung reticulono dular opacities. Minimal streaky bibasilar opacities, greater in the right lung base. Mild lateral co stophrenic angle blunting. Cardiomediastinal silhouette: Stable. Other: No acute osseous or upper abdominal finding. IMPRESSION: Pulmonary opacities may reflect mild interstitial edema versus bronchiolitis. Possible small right pl eural effusion. Bibasilar atelectasis/scar. Reviewed, dictated and finalized at location K. AL PRESENTATION MANAGER IMPRESSION: Pulmonary opacities may reflect mild interstitial edema versus bronchiolitis. P ossible small right pleural effusion. Bibasilar atelectasis/scar.
--- NOTE | ~2022-01-18 | CT_ITS ---
EXAMINATION: CTA chest PE protocol DATE: 01/18/2022 18:48 INDICATION: Left-sided pleuritic chest pain TECHNIQUE: Computed tomography angiography (CTA) of the chest was performed with 100 mL Omnipaque-350 intravenous contrast timed to evaluate the pulmonary arteries. Coronal maximum intensity projection 3D-reconstructions were created by the technologist. The dose-length product (DLP) was 639.93 mGy-cm. Automated exposure control and iterative reconstruction technique were employed. COMPARISON: CT lung screening 03/05/2020 and 03/14/2017. FINDINGS: Lung parenchyma and airways: Scattered air cysts. Moderate emphysematous change. Scattered calcified granulomas as well as nodular opacities that likely represent pulmonary lymph nodes or granulomas. Mi ld peripheral reticular and tree-in-bud opacities. Pleura: Unremarkable. Thoracic inlet, axillae and chest wall: Unremarkable. Thoracic aorta: Moderate arch calcification. Mediastinum: Bilateral hilar lymphadenopathy. Borderline mediastinal lymphadenopathy. Heart and pericardium: Normal. Coronary artery calcifications: Heavy. Upper abdomen: No significant finding. Bones: Emphysematous change. Dependent atelectasis/scar.. Pulmonary arteries: Study quality: Adequatei. No pulmonary emboli detected. IMPRESSION: No CT evidence of acute pulmonary embolus. Bilateral hilar and borderline mediastinal lymphadenopathy . Pulmonary opacities may reflect mild atypical infection versus small airways disease. Reviewed, dictated and finalized at location K. ITY CONTROL CHEMIST IMPRESSION: No CT evidence of acute pulmonary embolus. Bilateral hilar and borderline media stinal lymphadenopathy. Pulmonary opacities may reflect mild atypical infection versus small airways disease.
--- NOTE | 2022-01-18 15:51 | ECG_ITS ---
Measurements Intervals [place] Rate: 75 P: [place]: 0 QRS: -65 QRSD: 92 T: 80 QT: 372 QTc: 417 Interpretive Statements PROBABLE ATRIAL FIBRILLATION LEFT AXIS DEVIATION ABNORMAL ECG COMPARED TO ECG 12/07/2018 09:37:51 ATRIAL FIBRILLATION NOW PRESENT Electronically Signed On 01-18-2022 16:16:42 TRANSPORTATION TECHNICIAN by Salvatore Boyer M.D.
[2022-01-18 16:29] LABS: Basophils Percent Auto 0.4 % (0.2-1.2); Eosinophils Absolute Auto 0.2 K/mm3 (0-0.3); Eosinophils Percent Auto 2.7 % (0-4.4); Hematocrit 37.4 % (42.0-52.0); Hemoglobin 12.7 g/dL (14.0-18.0); Immature Granulocyte Absolute 0.02 K/mm3 (0.00-0.031); Immature Granulocyte Percent A 0.3 % (0-0.5); Lymphocytes Absolute Auto 1.48 K/mm3 (0.9-3.2); Mean Corpuscular Hemoglobin 31.6 pg (26-34); Mean Platelet Volume 10.2 fl (7.4-10.4); Monocytes Absolute Auto 0.7 K/mm3 (0.1-0.6); Monocytes Percent Auto 10.3 % (2.6-8.5); Neutrophils Absolute Auto 4.3 K/mm3 (1.3-6.7); Neutrophils Percent Auto 64.3 % (45.5-73.1); Platelet Count Result 190 k/mm3 (150-375); Red Blood Count 4.02 M/mm3 (4.6-6.20); White Blood Count 6.7 K/mm3 (4.5-10.0)
--- NOTE | 2022-01-18 16:31 | ED.CHESTPAIN ---
HPI - Chest Pain General Chief Complaint: Chest Pain Stated Complaint: chest pain Time Seen by Provider: 01/18/22 16:08 History of Present Illness HPI narrative: 76-year-old male presenting the emergency department for evaluation of intermittent left-sided chest wall pain. Patient states over the last few weeks he has had sharp left-sided pain that is worsened with inspiration. Patient does have history of peripheral vascular disease but denies any history of coronary artery disease. Patient did have a stent placed in his right femoral and did have a cleanout has artery on the left and patient also had a carotid endarterectomy on the left previously. Patient states that he had a stress test approximately 1 year ago and had a angiogram approximately 5 years ago. Patient describes the chest pain as sharp and short lasting, lasting approximately 15 to 20 seconds. Patient denies any radiation of the pain into his arms or legs. Related Data Home Medications Medication Instructions Recorded Confirmed aspirin 81 mg tablet,delayed 81 mg PO DAILY 06/12/19 01/18/22 release (Adult Low Dose Aspirin) tiotropium bromide 2.5 1 puff inhalation QID 06/12/19 01/18/22 mcg/actuation mist for inhalation (Spiriva Respimat) cholecalciferol (vitamin D3) 50 50 mcg PO DAILY 02/04/21 01/18/22 mcg (2,000 unit) tablet [id number]-[id number]-hyal 1 tablet PO BID 02/04/21 01/18/22 750 mg-100 mg-125 mg-1.65 mg tablet (Glucosamine Chondroit Complx Advan) multivitamin 1 tablet PO DAILY 02/04/21 01/18/22 omega-3 fatty acids 1,000 mg PO BID 02/04/21 01/18/22 vitamin E 670 mg (1,000 unit) 1,000 unit PO DAILY 02/04/21 01/18/22 capsule mecobalamin (vitamin B12) 1,000 1,000 mcg PO DAILY 08/05/21 01/18/22 mcg chewable tablet (B12 Active) pregabalin 75 mg capsule 75 mg PO DAILY 01/18/22 01/18/22 Allergies Allergy/AdvReac Type Severity Reaction Status Date / Time No Known Allergies Allergy Verified 11/10/21 12:34 Review of Systems Review of Systems: CONSTITUTIONAL: Denies fever, chills, or sweats. EYES: Denies visual changes, redness, or discharge. ENT: Denies rhinorrhea, congestion, sore throat, or otalgia. CARDIOVASCULAR: See HPI RESPIRATORY: Denies cough or dyspnea. GASTROINTESTINAL: Denies abdominal pain, nausea, vomiting, or diarrhea. GENITOURINARY: Denies dysuria or hematuria. SKIN: Denies rash or itching. MUSCULOSKELETAL: Denies back pain, joint pain, or myalgia. NEUROLOGIC: Denies headache, numbness, or weakness. [facility] Past Medical History Medical History (Updated 01/18/22 @ 23:51 by Jenaro Foy MD) Actinic keratitis Adenomatous colon polyp Surgical History Surgical History H/O carotid endarterectomy Family History Family History Mother Patient's mother is Sibling Patient's brother is Social History Social History Smoking packs per day: 1 Smoking cigarettes per day: 20.0 Years smoked: 50 Smoking pack-years: 50.00 Smoking status: Former smoker Tobacco type: cigarettes Second hand tobacco smoke exposure: No Smoking end date: 02/15/04 Alcohol intake: current Drinks per week: 3 Substance use: never Substance use type: does not use Lack of Transportation: No Lack of Food: Never True Current Housing: I Have Housing Concerned About Future Housing: No Difficulty Paying Gas/Electric Bills: No Difficulty Paying for Meds: No Currently Unemployed: No Education: Decline to Answer Difficulty w/ Childcare or Family Care: No Spiritual care concerns: No Exam Narrative: APPEARANCE: Well appearing, no pain, no distress, well-nourished. HEAD: normocephalic, atraumatic. EYES: PERRLA/EOMI, conjunctivae clear. NOSE: Normal no drainage EARS:TMS c
[2022-01-18] MEDS: ASPIRIN 81 MG CHEWABLE TABLET 324 MG PO (16:36)
[2022-01-18 16:43] LABS: INR 1.1; Prothrombin Time 13.3 Seconds (11.1-14.7)
[2022-01-18 16:44] LABS: Partial Thromboplastin Time 26.4 SECONDS (22.3-36.8)
[2022-01-18 17:10] LABS: D Dimer 0.65 ug/mL (<0.48)
[2022-01-18 18:33] LABS: Alanine Aminotransferase 37 U/L (6-50); Albumin Level 4.4 g/dL (3.5-5.1); Alkaline Phosphatase 73 U/L (38-126); Anion Gap 10 mmol/L (8-16); Aspartate Amino Transferase 34 U/L (17-59); Bilirubin,Total 0.4 mg/dL (0.2-1.3); Blood Urea Nitrogen 17 mg/dL (9-20); Calcium 8.5 mg/dL (8.4-10.2); Carbon Dioxide 21 mmol/L (22-30); Chloride 104 mmol/L (98-107); Estimated CRCL calculation 64 ml/min; Estimated Glomerular Filt Rate > 60; Glucose 150 mg/dL (65-110); Lipase 79 U/L (23-300); Potassium 4.3 mmol/L (3.4-5.0); Sodium 135 mmol/L (137-145)
[2022-01-18 18:47] LABS: Troponin I 0.275 ng/mL (0.000-0.034)
--- NOTE | 2022-01-18 18:51 | ECG_ITS ---
Measurements Intervals [place] Rate: 64 P: 42 ME: 240 QRS: -58 QRSD: 93 T: 61 QT: 390 QTc: 405 Interpretive Statements SINUS RHYTHM WITH FIRST DEGREE AV BLOCK LEFT AXIS DEVIATION [QRS AXIS < -30] POSSIBLE RIGHT VENTRICULAR CONDUCTION DELAY [RSR (QR) IN V1/V2] COMPARED TO ECG 01/18/2022 15:54:12 SINUS RHYTHM NOW PRESENT FIRST DEGREE AV BLOCK NOW PRESENT Electronically Signed On 01-19-2022 15:23:27 PRIMARY MONTESSORI TEACHER by Bette France M.D.
--- NOTE | 2022-01-18 20:15 | PM.IMHP ---
H&P: HPI History of Present Illness Date/Time: 01/18/22 20:15 Chief Complaint: Chest pain Narrative: This is a 76-year-old male with past medical history significant for peripheral vascular disease, status post femoral bypass bilaterally, COPD/ emphysema, benign prostatic hyperplasia, gastroesophageal reflux disease, type 2 diabetes mellitus, hypertension, dyslipidemia. patient comes to the emergency room due to chest pain on and off for the last several days or so occurs at rest or with activity, patient denies any radiation to the neck did show or the shoulder or the left arm is localized in the precordial area it last for a few minutes, patient denies any palpitations, no diaphoresis, no dizziness, no lightheadedness it feels like a squeeze, patient denies any cough, sputum production, no fevers, no rigors, no chills, no leg swelling. preliminary workup was significant for an elevated troponin. Patient is been admitted for further evaluation management and treatment. Review of Systems Review of Systems: Chest pain. Constitutional: Constitutional: Denies chills, Denies fatigue, Denies fever(s), Denies lethargy, Denies malaise, Denies night sweats, Denies poor appetite and Denies weakness Eyes: Eyes: Denies change in vision ENT: Denies dysphagia, Denies vertigo, Denies dizziness and Denies odynophagia Cardiovascular: Cardiovascular: Reports chest pain, Reports chest pain at rest, Reports chest pain with activity, Denies diaphoresis, Denies irregular heart rhythm, Denies leg edema, Denies lightheadedness, Denies radiating jaw, neck or arm pain and Denies palpitations Respiratory: Respiratory: Denies chest congestion, Denies cough, Denies dyspnea and Denies dyspnea on exertion Gastrointestinal: Gastrointestinal: Denies abdominal pain, Denies dyspepsia, Denies heartburn, Denies nausea and Denies vomiting Genitourinary: Genitourinary: Denies dysuria Musculoskeletal: Musculoskeletal: Denies myalgias, Denies joint swelling and Denies muscle weakness Integumentary/Breasts: Skin/Breast: Denies rash Neurologic: Denies dizziness, Denies focal weakness and Denies Sensory deficit (Neuro) Psychiatric: Psychiatric: Reports no additional psychiatric complaints and Reports as per HPI Endocrine: Endocrine: Denies cold intolerance, Denies flushing, Denies heat intolerance, Denies polyphagia, Denies polydipsia and Denies palpitations Hematologic/Lymphatic: Hematologic/Lymphatic: Reports no additional hematologic/lymphatic complaints and Reports as per HPI Allergic/Immunologic: Allergic/Immunologic: Reports no additional allergic/immunologic complaints and Reports as per HPI [facility] Past Medical History Medical History (Updated 01/18/22 @ 23:51 by Jenaro Foy MD) Actinic keratitis Adenomatous colon polyp Surgical History Surgical History H/O carotid endarterectomy Family History Family History Mother Patient's mother is Sibling Patient's brother is Social History Social History Smoking packs per day: 1 Smoking cigarettes per day: 20.0 Years smoked: 50 Smoking pack-years: 50.00 Smoking status: Former smoker Tobacco type: cigarettes Second hand tobacco smoke exposure: No Smoking end date: 02/15/04 Alcohol intake: current Drinks per week: 3 Substance use: never Substance use type: does not use Lack of Transportation: No Lack of Food: Never True Current Housing: I Have Housing Concerned About Future Housing: No Difficulty Paying Gas/Electric Bills: No Difficulty Paying for Meds: No Currently Unemployed: No Education: Decline to Answer Difficulty w/ Childcare or Family Care: No Spiritual care concerns: No Meds Home Medications and Allergies Home Medicati
[2022-01-18 20:19] LABS: Troponin I 0.295 ng/mL (0.000-0.034)
[2022-01-18] MEDS: METOPROLOL TARTRATE 25 MG TABLET PO (21:02)
[2022-01-18] MEDS: ENOXAPARIN 120 MG/0.8 ML SYRINGE 104 MG SUB-Q (21:02)
[2022-01-18 21:29] LABS: SARS-CoV-2 RNA PCR Negative
[2022-01-18 22:43] LABS: Troponin I 0.305 ng/mL (0.000-0.034)
--- NOTE | 2022-01-18 22:48 | ADMGEN ---
This patient, Peter Canales, was admitted to IMU Room 200-01 at 2248. Patient/family oriented to hospital policies and general routines including ID bracelet, bed and alarms, visiting hours, pain management, procedures, bathroom and other care routines, personal items, smoking policy, room service/diet, and visiting hours. Information on how to activate the Rapid Response Team has been discussed. Patient/Family are encouraged to report perceived risks to care and to ask questions if they do not understand what they are told or what they should do.
[2022-01-19] VITALS (27 sets, daily range): BP systolic 122–148; BP diastolic 47–82; PULSE 46–64; RESP 12–20; TEMP 36.1–36.7; O2SAT 93–99
--- NOTE | 2022-01-19 | ECHO_ITS ---
Patient Info Name: Peter Canales Age: 76 years : 1945 Gender: Male Ht: 74 in Wt: 232 lbs BSA: 2.37 m2 HR: 50 bpm BP: 145 / 65 mmHg Heart Rhythm: Sinus Rhythm, Bradycardia Exam Date: 01/19/2022 3:17 PM Exam Location: [facility] Patient Status: Inpatient Admit Date: 01/18/2022 Staff Ordering Physician: Bette France MD (eunice/celso) [employer] Loom Fixer: Jony Porter, JACINTA, RT Attending Provider: Chevy Boyd MD Referring Physician: Román CARLOS; Exam Type: CA echo dop color flow w con Study Info Indications I21.4 - Non-ST elevation (NSTEMI) myocardial infarction Complete two-dimensional, color flow and Doppler transthoracic echocardiogram is performed with contrast to opacify the left ventricle and to improve the deliniation of the left ventricle endocardial borders. Summary 1. Left ventricular chamber dimension is normal. 2. Left ventricular systolic function is normal, estimated at 50-55%. 3. There is mildly increased left ventricular wall thickness. 4. The left ventricular diastolic function is grade I diastolic dysfunction. 5. Right ventricular systolic function is normal. 6. The aortic valve is probable trileaflet. 7. The noncoronary cusp is moderately calcified and has restricted leaflet motion. 8. There is mild aortic valve stenosis with a peak velocity of 244.24 cm/s, mean gradient of 11 mmHg, and aortic valve area of 1.49 cm2. Left Ventricle Left ventricular chamber dimension is normal. Left ventricular systolic function is normal, estimated at 50-55%. There is mildly increased left ventricular wall thickness. The left ventricular diastolic function is grade I diastolic dysfunction. Right Ventricle Right ventricular chamber dimension is normal. Right ventricular systolic function is normal. Left Atria Left atrial chamber dimension is normal. Right Atria Right atrial chamber dimension is normal. Atrial Septum Intact interatrial septum visualized by color flow imaging. Aortic Valve The noncoronary cusp is moderately calcified and has restricted leaflet motion. The aortic valve is probable trileaflet. There is mild aortic valve stenosis with a peak velocity of 244.24 cm/s, mean gradient of 11 mmHg, and aortic valve area of 1.49 cm2. There is no aortic valve regurgitation. There is moderate aortic valve calcification. Pulmonic Valve The pulmonic valve is not well visualized. Mitral Valve There is no mitral valve stenosis. There is trace mitral valve regurgitation. Tricuspid Valve There is no tricuspid valve regurgitation. Pericardium/Pleural There is no pericardial effusion. Inferior Vena Cava Dilated inferior vena cava with <50% collapse upon inspiration consistent with elevated right atrial pressure, 15 mmHg. Aorta The aortic root size at the sinus of Valsalva is mildly dilated. Left Ventricular Outflow Tract Name Value Normal LVOT 2D LVOT Diameter 2.23 cm LVOT Doppler LVOT Peak Gradient 3 mmHg LVOT Mean Gradient 2 mmHg LVOT VTI 22.51 cm LVOT VTI/AV VTI R
[2022-01-19 07:45] LABS: Glucose Point of Care 139 mg/dl (65-105)
[2022-01-19] MEDS: ATORVASTATIN 20 MG TABLET PO (09:23)
[2022-01-19] MEDS: METOPROLOL TARTRATE 25 MG TABLET PO ×2 (09:23→19:56)
[2022-01-19] MEDS: PANTOPRAZOLE 40 MG TABLET PO (09:23)
[2022-01-19] MEDS: amLODIPine BESYLATE 5 MG TABLET 10 MG PO (09:23)
[2022-01-19] MEDS: PREGABALIN (*CRX) 75 MG CAPSULE PO (09:23)
[2022-01-19] MEDS: ASPIRIN 81 MG ENTERIC TABLET PO (09:23)
[2022-01-19] MEDS: CLOPIDOGREL BISULFATE 300 MG TABLET PO (09:23)
[2022-01-19] MEDS: LOSARTAN POTASSIUM 50 MG TABLET PO (09:23)
--- NOTE | 2022-01-19 09:23 | PM.CNCAR ---
Assessment and Plan Assessment and plan (1) Non-ST elevation [place] (NSTEMI): Code(s): I21.4 - Non-ST elevation (NSTEMI) myocardial infarction Status: Acute (2) PVD (peripheral vascular disease): Code(s): I73.9 - Peripheral vascular disease, unspecified Status: Acute (3) Chronic obstructive pulmonary disease, unspecified: Qualifiers: COPD type: unspecified COPD Qualified Code(s): J44.9 - Chronic obstructive pulmonary disease, unspecified Code(s): J44.9 - Chronic obstructive pulmonary disease, unspecified Status: Acute (4) Dyslipidemia: Code(s): E78.5 - Hyperlipidemia, unspecified Status: Acute (5) Essential hypertension: Code(s): I10 - Essential (primary) hypertension Status: Acute (6) History of carotid endarterectomy: Code(s): Z98.890 - Other specified postprocedural states Status: Acute (7) Type 2 diabetes mellitus with hyperglycemia, without long-term current use of insulin: Code(s): E11.65 - Type 2 diabetes mellitus with hyperglycemia Status: Acute Plan Given NSTEMI and anginal symptoms, will perform coronary angiography today. Discussed procedure details, risks vs benefits, alternative management options with the patient. Patient agrees to proceed with cardiac cath. Given dose of therapeutic Lovenox yesterday evening. Loaded with ASA 324mg. Continue ASA 81mg once daily. Patient takes Plavix 75mg daily at home. Will load with 300mg once prior to cath. Continue with maintenance dose of 75mg thereafter. Given dose of therapeutic Lovenox yesterday evening. Continue with Metoprolol 25mg BID. Continue with Amlodipine 10mg On Atorvastatin 20mg, will increase to high dose. Check lipid panel. Continue with Losartan 50mg. Obtain TTE. Further recommendations pending results of cardiac cath. Patient to remain NPO for cardiac cath. History of Present Illness History of Present Illness Consult date/time: 01/19/22 09:23 Requesting physician: Jenaro Foy MD Consult reason: chest pain Reason For Visit: NSTEMI, unstable angina Narrative: We are being consulted for NSTEMI. This is a 76-year-old male with a history of carotid artery disease, peripheral arterial disease, COPD/emphysema, type 2 diabetes, hypertension, hyperlipidemia who presented to the [place] ER for chest pain. Patient reports left anterior chest pain that has been occurring for several weeks now, sometimes worsened with exertion. Patient reports that in the last few days it has felt worse. On Tuesday, he had an episode of severe chest pain with radiation down the left arm and numbness throughout whole body. Patient states that his chest pain feels like a squeezing pain. Currently without active chest pain upon my evaluation. Not having shortness of breath, palpitations, lightheadedness/dizziness. ER evaluation showed mild troponin elevation of 0.275 --> 0.295 --> 0.305. Initial EKG in the ED showed possible atrial fibrillation. Repeat EKG showed sinus rhythm with first-degree AV block. CTA chest showed no evidence of acute PE. There are heavy coronary artery calcifications. Review of Systems Review of Systems: 12-point ROS obtained. Negative, unless stated in HPI. [facility] Past Medical History Medical History Actinic keratitis Adenomatous colon polyp Surgical History Surgical History H/O carotid endarterectomy Family History Family History Mother Patient's mother is Sibling Patient's brother is Social History Social History Smoking packs per day: 1 Smoking cigarettes per day: 20.0 Years smoked: 50 Smoking pack-years: 50.00 Smoking status: Former smoker Tobacco type: cigarettes Second hand tob
--- NOTE | 2022-01-19 09:33 | PCRCNOTE ---
INHALER NOT GIVEN, PATIENT LEAVING FLOOR FOR PROCEDURE
--- NOTE | 2022-01-19 09:34 | PC.NURSE ---
Pt to hot plate plywood press laborer for cardiac catheterization.
--- NOTE | 2022-01-19 09:37 | WPDMODSED ---
Moderate Sedation Note-Pt Data Patient Data Diagnosis: NSTEMI Present Complaint: Chest pain; NSTEMI Procedure to be performed/Plan: Coronary angiography, LHC, +/- PCI Allergies Allergy/AdvReac Type Severity Reaction Status Date / Time No Known Allergies Allergy Verified 11/10/21 12:34 Home Medications Medication Instructions Recorded Confirmed Type aspirin 81 mg tablet,delayed 81 mg PO DAILY 06/12/19 01/18/22 History release (Adult Low Dose Aspirin) tiotropium bromide 2.5 1 puff inhalation QID 06/12/19 01/18/22 History mcg/actuation mist for inhalation (Spiriva Respimat) cholecalciferol (vitamin D3) 50 50 mcg PO DAILY 02/04/21 01/18/22 History mcg (2,000 unit) tablet [id number] 1 tablet PO BID 02/04/21 01/18/22 History 750 mg-100 mg-125 mg-1.65 mg tablet (Glucosamine Chondroit Complx Advan) multivitamin 1 tablet PO DAILY 02/04/21 01/18/22 History omega-3 fatty acids 1,000 mg PO BID 02/04/21 01/18/22 History vitamin E 670 mg (1,000 unit) 1,000 unit PO DAILY 02/04/21 01/18/22 History capsule mecobalamin (vitamin B12) 1,000 1,000 mcg PO DAILY 08/05/21 01/18/22 History mcg chewable tablet (B12 Active) atorvastatin 20 mg tablet 20 mg PO DAILY #90 tabs 08/13/21 01/18/22 Rx finasteride 5 mg tablet 5 mg PO DAILY #90 tabs 08/13/21 01/18/22 Rx losartan 50 mg tablet 50 mg PO QAM #90 tabs 08/14/21 01/18/22 Rx amlodipine 10 mg tablet 10 mg PO DAILY #90 tabs 08/31/21 01/18/22 Rx omeprazole 40 mg capsule,delayed 40 mg PO DAILY #90 caps 11/10/21 01/18/22 Rx release metformin 500 mg tablet 500 mg PO BID #180 tabs 11/30/21 01/18/22 Rx tamsulosin 0.4 mg capsule 0.4 mg PO DAILY #90 caps 12/21/21 01/18/22 Rx pregabalin 75 mg capsule 75 mg PO DAILY 01/18/22 01/18/22 History Current Medications: Active Medications Amlodipine Besylate (Amlodipine Besylate 5 Mg Tablet) 10 mg PO DAILY [facility] Last Admin: 01/19/22 09:23 Dose: 10 mg Aspirin (Aspirin 81 Mg Enteric Tablet) 81 mg PO DAILY [facility] Last Admin: 01/19/22 09:23 Dose: 81 mg Atorvastatin Calcium (Atorvastatin 20 Mg Tablet) 20 mg PO DAILY [facility] Last Admin: 01/19/22 09:23 Dose: 20 mg Clopidogrel Bisulfate (Clopidogrel Bisulfate 75 Mg Tablet) 75 mg PO QAM [facility] Dextrose (Dextrose 50% 25 Gm/50 Ml Syringe) 12.5 gm IV PUSH PRN PRN; Protocol PRN Reason: Hypoglycemia Finasteride (Finasteride 5 Mg Tablet) 5 mg PO DAILY [facility] Fish Oil ([place] 3 Polyunsat Fatty Acids 1 Gm Cap) 1 gm PO BID [facility] Glucagon (Glucagon For Inj 1 Mg Vial) 1 mg IM PRN PRN; Protocol PRN Reason: Hypoglycemia Glucose (Glucose Oral Gel 15 Gm Of Glucse In 37.5 Gm Tube) 15 gm PO PRN PRN; Protocol PRN Reason: Hypoglycemia Dextrose/Sodium Chloride (Dextrose 5% Sodium Chloride 0.45%) 1,000 mls @ 85 mls/hr IV CONT .[id number] [facility] Dextrose (Dextrose 5% 1,000 Ml) 1,000 mls @ 100 mls/hr IVPB PRN PRN; Protocol PRN Reason: Hypoglycemia Insulin Aspart (Insulin Aspart (*Bkc) 100 Units/Ml) 2 - 5 units SUB-Q TIDWM [facility]; Protocol Last Admin: 01/19/22 07:55 Dose: Not Given Losartan Potassium (Losartan Potassium 50 Mg Tablet) 50 mg PO QAM [facility] Last Admin: 01/19/22 09:23 Dose: 50 mg Metoprolol Tartrate (Metoprolol Tartrate 25 Mg Tablet) 25 mg PO Q12HR [facility] Last Admin: 01/19/22 09:23 Dose: 25 mg Miscellaneous Information (Spiriva - Home Med Was Subbed For Incruse - Please Clarify The Home Med Directions And Med) 0 each XX CLARIFY [facility] Stop: 02/18/22 00:00 Pantoprazole Sodium (Pantoprazole 40 Mg Tablet) 40 mg PO QAM [facility] Last Admin: 01/19/22 09:23 Dose: 40 mg Pregabalin (Pregabalin (*Crx) 75 Mg Capsule) 75 mg PO DAILY [facility] Last Admin: 01/19/22 09:23 Dose: 75 mg Tamsulosin HCl (Tamsulosin Hcl 0.4 Mg Capsule) 0.4 mg PO DAILY [facility] Umeclidinium [place] (Umeclidinium [place] 62.5 Mcg Ellipta) [facility] Last Admin: 01/19/22 09:33 Dose: Not Given Sedation/Anesthesia: No previous sedation/anesthesia problems (including family history).
--- NOTE | 2022-01-19 09:40 | WPDCARDPROC ---
Cardiac Cath Procedure Note Date of procedure:: 01/19/22 Performing physician:: CATHETERIZATION LABORATORY REPORT Procedure Date: 01/19/2022 Adult Basic Education Manager: Bette France M.D., [facility]? Referring Physician: Bette France M.D. Anesthesia: Versed and Fentanyl were ordered and given in my presence at 10:00, procedure ended at 11:08. Supervision of nurse monitored moderate sedation with Versed and Fentanyl was provided for 68 minutes. Total of Versed 2mg and Fentanyl 50mcg were administered by the Group Controller RN Lisa Hansen. Pre-op Diagnosis: Acute Coronary Syndrome / NSTEMI Post-op Diagnosis: Significant ostial-proximal LCX disease and significant mid-LCX disease. Ostial disease may possibly involve distal left main (distal left main appears to have some moderate plaque on certain views). Left-dominant system Left-ventricular end-diastolic pressure of 17mmHg Procedure(s): Left heart catheterization with coronary angiography Access Site: Right radial artery Brief History and Clinical Indications: Patient is a 76-year-old male with a history of carotid artery disease, peripheral arterial disease, COPD/emphysema, type 2 diabetes, hypertension, hyperlipidemia who presented to the [place] ER for chest pain. Patient reports left anterior chest pain that has been occurring for several weeks now, sometimes worsened with exertion. Patient reports that in the last few days it has felt worse. On Tuesday, he had an episode of severe chest pain with radiation down the left arm and numbness throughout whole body. Patient states that his chest pain feels like a squeezing pain. Currently without active chest pain upon my evaluation. Not having shortness of breath, palpitations, lightheadedness/dizziness. ER evaluation showed mild troponin elevation of 0.275 --> 0.295 --> 0.305. Initial EKG in the ED showed possible atrial fibrillation. Repeat EKG showed sinus rhythm with first-degree AV block. CTA chest showed no evidence of acute PE. There are heavy coronary artery calcifications. Patient referred for coronary angiography, left heart cath, +/- PCI for NSTEMI. All risks, benefits and alternatives to left heart catheterization with or without percutaneous coronary intervention was discussed at length with the patient. Risk of complications including but not limited to bleeding, infection, arrhythmia, stroke, worsening kidney function, blood loss, groin hematoma, limb loss, emergency coronary artery bypass grafting, and even were discussed with the patient and all questions were answered. The patient understood and wished to proceed. Time out called, patient name, date of , medical record number, allergies, procedure performed, identify Adult Basic Education Manager, patient and staff member concurred with accurate data, procedure carried on. Findings: LEFT HEART CATHETERIZATION FINDINGS: 1. Left main: The left main is a heavily calcified vessel. The left main bifurcates into the LAD and LCX. There is significant obstructive disease of the LCX which likely also involves the distal left main (distal left main appears to have some moderate plaque on certain views). 2. Left anterior descending: The LAD has mild diffuse disease. The distal apical LAD has a moderate focal stenosis. Diagonal vessels are of small caliber and diffusely diseased. 3. Left circumflex: The left circumflex is the dominant vessel. There is significant obstructive 95-99% disease of the ostial-proximal left circumflex. The proximal-mid LCX has mild diffuse disease. There is a 70-80% focal stenosis of the mid LCX. The LPLV and LPDA have diffuse disease. The ostial-proximal LCX disease appears to involve the bifurcation of an OM branch. Rest of the OM branch has mild diffuse disease. There is a second very small caliber OM branch that is diffusely diseased. 4. Right coronary artery: The RCA is the non-dominant vessel. Difficult to engage. Non-selective angios do not show significant
[2022-01-19 11:19] LABS: Hemoglobin A1C 6.5 % (<5.7)
[2022-01-19] MEDS: SODIUM CHLORIDE 0.9% IV 1,000 ML 125 ML IV CONT ×2 (11:30→19:55)
--- NOTE | 2022-01-19 11:36 | SUR.PHASEII ---
Pt resting comfortably in bed, family at bedside, VSS, NAD noted, TR band noted to right wrist, no bleeding or hematoma noted, TR band to be removed per protocol.
[2022-01-19 13:16] LABS: Cholesterol 139 mg/dL (0-200); HDL Direct 29 mg/dL; Triglycerides 135 mg/dL (<150)
--- NOTE | 2022-01-19 13:27 | SUR.PHASEII ---
Pt resting comfortably in bed, prepare for transport to IMU, report given to Liliam IRVIN.
[2022-01-19 13:29] LABS: LDL Cholesterol Direct 80 mg/dL
--- NOTE | 2022-01-19 13:39 | PC.NURSE ---
Pt returned from cathodic protection technician via bed
[2022-01-19] MEDS: TAMSULOSIN HCL 0.4 MG CAPSULE PO (13:55)
[2022-01-19] MEDS: FINASTERIDE 5 MG TABLET PO (13:55)
[2022-01-19] MEDS: OMEGA 3 POLYUNSAT FATTY ACIDS 1 GM CAP PO ×2 (13:55→17:29)
[2022-01-19 14:52] LABS: Basophils Percent Auto 0.4 % (0.2-1.2); Eosinophils Absolute Auto 0.2 K/mm3 (0-0.3); Eosinophils Percent Auto 3.6 % (0-4.4); Hematocrit 35.7 % (42.0-52.0); Hemoglobin 11.9 g/dL (14.0-18.0); Immature Granulocyte Absolute 0.02 K/mm3 (0.00-0.031); Immature Granulocyte Percent A 0.4 % (0-0.5); Lymphocytes Absolute Auto 1.52 K/mm3 (0.9-3.2); Lymphocytes Percent Auto 30.8 % (18.3-44.2); Mean Corpuscular HGB Conc 33.3 g/dl (32-36); Mean Corpuscular Hemoglobin 30.8 pg (26-34); Mean Corpuscular Volume 92.5 fl (80-100); Mean Platelet Volume 9.7 fl (7.4-10.4); Monocytes Absolute Auto 0.4 K/mm3 (0.1-0.6); Monocytes Percent Auto 8.3 % (2.6-8.5); Neutrophils Absolute Auto 2.8 K/mm3 (1.3-6.7); Neutrophils Percent Auto 56.5 % (45.5-73.1); Platelet Count Result 191 k/mm3 (150-375); Red Blood Count 3.86 M/mm3 (4.6-6.20); Red Cell Distribution Width 14.3 % (11.5-14.5); White Blood Count 4.9 K/mm3 (4.5-10.0)
--- NOTE | 2022-01-19 14:55 | PM.TDS ---
Transfer Discharge Sum: Prov Provider Date of admission: 01/18/22 20:26 Primary care physician: Anuel Juarez DO Admitting clinician: Chevy Boyd MD Consults: 01/18/22 Consult to Physician Routine Comment: Consulting Provider: Barbara Fu Reason for consultation: NSTEMI Has provider been notified: Yes DS: Admitting Diagnosis Discharge Date 01/19/2022 Admitting Diagnosis chest pain Transfer Discharge Sum: Med Medications Active and Home Medications: Home Medications aspirin 81 mg tablet,delayed release (Adult Low Dose Aspirin) 81 mg PO DAILY 06/12/19 [History Confirmed 01/18/22] cholecalciferol (vitamin D3) 50 mcg (2,000 unit) tablet 50 mcg PO DAILY 02/04/21 [History Confirmed 01/18/22] txqqfahssdy-nzlkihsds-ltqh120-hyal 750 mg-100 mg-125 mg-1.65 mg tablet (Glucosamine Chondroit Complx Advan) 1 tablet PO BID 02/04/21 [History Confirmed 01/18/22] multivitamin 1 tablet PO DAILY 02/04/21 [History Confirmed 01/18/22] omega-3 fatty acids 1,000 mg PO BID 02/04/21 [History Confirmed 01/18/22] mecobalamin (vitamin B12) 1,000 mcg chewable tablet (B12 Active) 1,000 mcg PO DAILY 08/05/21 [History Confirmed 01/18/22] atorvastatin 20 mg tablet 20 mg PO DAILY #90 tabs 08/13/21 [Rx Confirmed 01/18/22] finasteride 5 mg tablet 5 mg PO DAILY #90 tabs 08/13/21 [Rx Confirmed 01/18/22] losartan 50 mg tablet 50 mg PO QAM #90 tabs 08/14/21 [Rx Confirmed 01/18/22] amlodipine 10 mg tablet 10 mg PO DAILY #90 tabs 08/31/21 [Rx Confirmed 01/18/22] omeprazole 40 mg capsule,delayed release 40 mg PO DAILY #90 caps 11/10/21 [Rx Confirmed 01/18/22] metformin 500 mg tablet 500 mg PO BID #180 tabs 11/30/21 [Rx Confirmed 01/18/22] tamsulosin 0.4 mg capsule 0.4 mg PO DAILY #90 caps 12/21/21 [Rx Confirmed 01/18/22] pregabalin 75 mg capsule 75 mg PO DAILY 01/18/22 [History Confirmed 01/18/22] clopidogrel 75 mg tablet (Plavix) 75 mg PO DAILY 01/19/22 [History Confirmed 01/19/22] ipratropium 20 mcg-albuterol 100 mcg/actuation mist for inhalation 1 puff inhalation QID 01/19/22 [History Confirmed 01/19/22] omega 3-nyn-acf-fish oil 1,200 mg (144 mg-216 mg) capsule (Fish Oil) 1 cap PO BID 01/19/22 [History Confirmed 01/19/22] vitamin E (dl, acetate) 180 mg (400 unit) capsule 180 mg PO DAILY 01/19/22 [History Confirmed 01/19/22] Active Medications Amlodipine Besylate (Amlodipine Besylate 5 Mg Tablet) 10 mg PO DAILY [facility] Last Admin: 01/19/22 09:23 Dose: 10 mg Aspirin (Aspirin 81 Mg Enteric Tablet) 81 mg PO DAILY [facility] Last Admin: 01/19/22 09:23 Dose: 81 mg Atorvastatin Calcium (Atorvastatin 40 Mg Tablet) 80 mg PO DAILY [facility] Clopidogrel Bisulfate (Clopidogrel Bisulfate 75 Mg Tablet) 75 mg PO QAM [facility] Dextrose (Dextrose 50% 25 Gm/50 Ml Syringe) 12.5 gm IV PUSH PRN PRN; Protocol PRN Reason: Hypoglycemia Finasteride (Finasteride 5 Mg Tablet) 5 mg PO DAILY [facility] Last Admin: 01/19/22 13:55 Dose: 5 mg Fish Oil ([place] 3 Polyunsat Fatty Acids 1 Gm Cap) 1 gm PO BID [facility] Last Admin: 01/19/22 13:55 Dose: 1 gm Glucagon (Glucagon For Inj 1 Mg Vial) 1 mg IM PRN PRN; Protocol PRN Reason: Hypoglycemia Glucose (Glucose Oral Gel 15 Gm Of Glucse In 37.5 Gm Tube) 15 gm PO PRN PRN; Protocol PRN Reason: Hypoglycemia Heparin Sodium (Porcine) (Heparin Sodium 5,000 Units/Ml Vial) 4,000 units IV PUSH PRN PRN PRN Reason: aPTT less than 55 seconds Heparin Sodium (Porcine) (Heparin Sodium 5,000 Units/Ml Vial) 3,500 units IV PUSH PRN PRN PRN Reason: aPTT 55 - 70 seconds Dextrose (Dextrose 5% 1,000 Ml) 1,000 mls @ 100 mls/hr IVPB PRN PRN; Protocol PRN Reason: Hypoglycemia Sodium Chloride (Normal Saline Iv) 1,000 mls @ 125 mls/hr IV CONT .Q8H ONE Stop: 01/19/22 19:14 Last Admin: 01/19/22 11:30 Dose: 125 mls/hr Heparin Sodium/Dextrose (Heparin Sodium/D5w 100 Units/Ml) 25,000 units in 250 mls @ 10 mls/hr IV CONT .Q24H [facility]; Protocol Insulin Aspart (Insulin Aspart (*Bkc) 100 Units/Ml) 2 - 5 units SUB-Q TIDWM [facility]; Protocol Last Admin: 01/19/22 13
[2022-01-19 15:03] LABS: INR 1.1; Partial Thromboplastin Time 30.6 SECONDS (22.3-36.8); Prothrombin Time 13.7 Seconds (11.1-14.7)
[2022-01-19] MEDS: PERFLUTREN LIPID MICROSPHERES 1.5 ML VIAL DILUTED TO 10 ML TOTAL VOLUME IV PUSH (15:33)
--- NOTE | 2022-01-19 15:34 | IVDEFINITY ---
Prior to administration of IV Definity the patient was educated on the risks and benefits of the imaging enhancing agent including potential adverse side effects. The patient verbalized understanding. Allergies were verified. No exclusion criteria were identified and at least one of the following inclusion criteria were met: 1) physician request, 2) patient technically difficult to image (per the [place] [employer]chocardi[employer] guidelines of two or more segments not discernable within the apical view), or 3) questionable left ventricular function. ?
[2022-01-19 16:42] LABS: Glucose Point of Care 134 mg/dl (65-105)
[2022-01-19] MEDS: HEPARIN SOD/D5W 100 UNITS/ML 25,000 UNITS/250 ML BAG 10 UNITS IV CONT (19:15)
[2022-01-19 20:10] LABS: Glucose Point of Care 127 mg/dl (65-105)
[2022-01-20] VITALS (17 sets, daily range): BP systolic 129–143; BP diastolic 46–66; PULSE 48–61; RESP 12–20; TEMP 36.2–37.1; O2SAT 93–100
[2022-01-20 01:51] LABS: Basophils Percent Auto 0.5 % (0.2-1.2); Eosinophils Absolute Auto 0.2 K/mm3 (0-0.3); Eosinophils Percent Auto 3.7 % (0-4.4); Hematocrit 31.8 % (42.0-52.0); Hemoglobin 10.6 g/dL (14.0-18.0); Immature Granulocyte Absolute 0.01 K/mm3 (0.00-0.031); Immature Granulocyte Percent A 0.2 % (0-0.5); Lymphocytes Absolute Auto 1.43 K/mm3 (0.9-3.2); Mean Corpuscular HGB Conc 33.3 g/dl (32-36); Mean Corpuscular Hemoglobin 31.5 pg (26-34); Mean Corpuscular Volume 94.6 fl (80-100); Mean Platelet Volume 9.9 fl (7.4-10.4); Monocytes Absolute Auto 0.7 K/mm3 (0.1-0.6); Monocytes Percent Auto 12.1 % (2.6-8.5); Neutrophils Absolute Auto 3.6 K/mm3 (1.3-6.7); Neutrophils Percent Auto 59.5 % (45.5-73.1); Platelet Count Result 163 k/mm3 (150-375); Red Blood Count 3.36 M/mm3 (4.6-6.20); Red Cell Distribution Width 14.2 % (11.5-14.5)
[2022-01-20 02:05] LABS: Partial Thromboplastin Time 58.8 SECONDS (22.3-36.8)
[2022-01-20] MEDS: HEPARIN SODIUM 5,000 UNITS/ML VIAL 3500 UNITS IV PUSH ×3 (02:16→22:41)
--- NOTE | 2022-01-20 07:15 | PC.NURSE ---
Cardiopulmonary Rehab Services flyer was given to patient.
[2022-01-20 07:46] LABS: Glucose Point of Care 157 mg/dl (65-105)
[2022-01-20] MEDS: TAMSULOSIN HCL 0.4 MG CAPSULE PO (08:29)
[2022-01-20] MEDS: OMEGA 3 POLYUNSAT FATTY ACIDS 1 GM CAP PO ×2 (08:29→17:02)
[2022-01-20] MEDS: ASPIRIN 81 MG ENTERIC TABLET PO (08:30)
[2022-01-20] MEDS: amLODIPine BESYLATE 5 MG TABLET 10 MG PO (08:30)
[2022-01-20] MEDS: CLOPIDOGREL BISULFATE 75 MG TABLET PO (08:31)
[2022-01-20] MEDS: LOSARTAN POTASSIUM 50 MG TABLET PO (08:31)
[2022-01-20] MEDS: PANTOPRAZOLE 40 MG TABLET PO (08:32)
[2022-01-20] MEDS: METOPROLOL TARTRATE 25 MG TABLET PO ×2 (08:32→21:40)
[2022-01-20] MEDS: FINASTERIDE 5 MG TABLET PO (08:33)
[2022-01-20] MEDS: ATORVASTATIN 40 MG TABLET 80 MG PO (08:37)
[2022-01-20 08:39] LABS: Partial Thromboplastin Time 69.8 SECONDS (22.3-36.8)
[2022-01-20] MEDS: PREGABALIN (*CRX) 75 MG CAPSULE PO (08:50)
[2022-01-20 09:27] LABS: Anion Gap 8 mmol/L (8-16); Blood Urea Nitrogen 16 mg/dL (9-20); Calcium 8.7 mg/dL (8.4-10.2); Carbon Dioxide 22 mmol/L (22-30); Chloride 107 mmol/L (98-107); Estimated CRCL calculation 66 ml/min; Estimated Glomerular Filt Rate > 60; Glucose 129 mg/dL (65-110); Potassium 4.4 mmol/L (3.4-5.0); Sodium 137 mmol/L (137-145)
--- NOTE | 2022-01-20 10:40 | PM.PNCARD ---
Progress Note: A&P Assessment and Plan (1) Non-ST elevation [place] (NSTEMI): Code(s): I21.4 - Non-ST elevation (NSTEMI) myocardial infarction Status: Acute (2) PVD (peripheral vascular disease): Code(s): I73.9 - Peripheral vascular disease, unspecified Status: Acute (3) Chronic obstructive pulmonary disease, unspecified: Qualifiers: COPD type: unspecified COPD Qualified Code(s): J44.9 - Chronic obstructive pulmonary disease, unspecified Code(s): J44.9 - Chronic obstructive pulmonary disease, unspecified Status: Acute (4) Essential hypertension: Code(s): I10 - Essential (primary) hypertension Status: Acute (5) History of carotid endarterectomy: Code(s): Z98.890 - Other specified postprocedural states Status: Acute (6) Type 2 diabetes mellitus with hyperglycemia, without long-term current use of insulin: Code(s): E11.65 - Type 2 diabetes mellitus with hyperglycemia Status: Acute Plan Cardiac Cath 01/19 showed: Significant ostial-proximal LCX disease and significant mid-LCX disease. Ostial disease may possibly involve distal left main (distal left main appears to have some moderate plaque on certain views). Left-dominant system. Left-ventricular end-diastolic pressure of 17mmHg. TTE shows: ?1. Left ventricular chamber dimension is normal. ? 2. Left ventricular systolic function is normal, estimated at 50-55%. ? 3. There is mildly increased left ventricular wall thickness. ? 4. The left ventricular diastolic function is grade I diastolic dysfunction. ? 5. Right ventricular systolic function is normal. ? 6. The aortic valve is probable trileaflet. ? 7. The noncoronary cusp is moderately calcified and has restricted leaflet motion. ? 8. There is mild aortic valve stenosis with a peak velocity of 244.24 cm/s, mean gradient of 11 mmHg, and aortic valve area of 1.49 cm2. Awaiting transfer to [facility] for high-risk PCI. Continue Heparin drip. Continue ASA 81mg daily, Plavix 75mg daily, beta markus, high-intensity statin Subjective Date/time seen: 01/20/22 10:40 Interval history: Reason for visit: NSTEMI HPI: This is a 76-year-old male with a history of carotid artery disease, peripheral arterial disease, COPD/emphysema, type 2 diabetes, hypertension, hyperlipidemia who presented to the [place] ER for chest pain. Patient reports left anterior chest pain that has been occurring for several weeks now, sometimes worsened with exertion. Patient reports that in the last few days it has felt worse. On Tuesday, he had an episode of severe chest pain with radiation down the left arm and numbness throughout whole body. Patient states that his chest pain feels like a squeezing pain. Currently without active chest pain upon my evaluation. Not having shortness of breath, palpitations, lightheadedness/dizziness. ER evaluation showed mild troponin elevation of 0.275 --> 0.295 --> 0.305. Initial EKG in the ED showed possible atrial fibrillation. Repeat EKG showed sinus rhythm with first-degree AV block. CTA chest showed no evidence of acute PE. There are heavy coronary artery calcifications. Date of service 01/20/2022: Awaiting transfer to [facility] for high risk PCI. Patient doing well this AM. Review of Systems Review of Systems: 8-point ROS obtained. Negative, unless stated in HPI. Exam Const: General: comfortable and no acute distress HENMT: Mouth: Yes moist mucous membranes Eyes: General: appearance normal, both eyes and all related structures Sclera: sclerae normal Resp: Effort & Inspection: normal respiratory effort Auscultation: clear to auscultation bilaterally Cardio: Rate: regular rate Rhythm: regular rhythm Heart sounds: no murmurs Skin: General skin exam: normal color Neuro: Speech: normal speech Motor exam (neuro): 5/5 motor strength present throughout Extrem: General: normal to inspection Psych: Mental Status: mental statu
[2022-01-20 12:17] LABS: Glucose Point of Care 143 mg/dl (65-105)
[2022-01-20] MEDS: HEPARIN SOD/D5W 100 UNITS/ML 25,000 UNITS/250 ML BAG 14 UNITS IV CONT (15:03)
[2022-01-20 16:00] LABS: Glucose Point of Care 172 mg/dl (65-105)
--- NOTE | 2022-01-20 16:15 | PM.IMPN ---
Progress Note: A&P Assessment and Plan (1) Non-ST elevation [place] (NSTEMI): Code(s): I21.4 - Non-ST elevation (NSTEMI) myocardial infarction Status: Acute Assessment and Plan: admit to IMU trend troponins continuous telemetry EKG reviewed cardiology consult patient got 1 dose of Lovenox in emergency room 01/19/2022 interval history 76-year-old male with history of PVD, COPD and diabetes presented with chest pain was seen by Cardiology and had a cardiac catheterization today it showed significant stenosis of left circumflex disease of the ostial proximal left circumflex, discussed with cardiology recommended patient is to be transferred to [facility] for further critical care evaluation with cooker cleaner, patient remains clinically stable he has no complaints of chest pain, will continue to monitor once a bed is available be transfer the patient. (2) GERD (gastroesophageal reflux disease): Qualifiers: Esophagitis presence: esophagitis presence not specified Qualified Code(s): K21.9 - Gastro-esophageal reflux disease without esophagitis Code(s): K21.9 - Gastro-esophageal reflux disease without esophagitis Status: Acute Assessment and Plan: continue PPI (3) PVD (peripheral vascular disease): Code(s): I73.9 - Peripheral vascular disease, unspecified Status: Acute Assessment and Plan: status post bypass continue aspirin (4) Obesity (BMI 30.0-34.9): Code(s): E66.9 - Obesity, unspecified Status: Acute Assessment and Plan: lifestyle and diet modifications (5) Chronic obstructive pulmonary disease, unspecified: Qualifiers: COPD type: unspecified COPD Qualified Code(s): J44.9 - Chronic obstructive pulmonary disease, unspecified Code(s): J44.9 - Chronic obstructive pulmonary disease, unspecified Status: Acute Assessment and Plan: not actively wheezing continue home meds (6) Essential hypertension: Code(s): I10 - Essential (primary) hypertension Status: Acute Assessment and Plan: continue home meds continue to monitor (7) Type 2 diabetes mellitus with hyperglycemia, without long-term current use of insulin: Code(s): E11.65 - Type 2 diabetes mellitus with hyperglycemia Status: Acute Assessment and Plan: holding metformin insulin sliding scale as needed Subjective Date/time seen: 01/19/22 16:15 Chest pain HPI-Narrative: ?This is a 76-year-old male with past medical history significant for peripheral vascular disease, status post femoral bypass bilaterally, COPD/ emphysema, benign prostatic hyperplasia, gastroesophageal reflux disease, type 2 diabetes mellitus, hypertension, dyslipidemia. patient comes to the emergency room due to chest pain on and off for the last several days or so occurs at rest or with activity, patient denies any radiation to the neck did show or the shoulder or the left arm is localized in the? precordial area it last for a few minutes, patient denies any palpitations, no diaphoresis, no dizziness, no lightheadedness it feels like a squeeze,? patient denies any cough, sputum production, no fevers, no rigors, no chills, no leg swelling.? preliminary workup was significant for? an elevated troponin.? Patient is been admitted for further evaluation management and treatment. 01/19/2022 interval history 76-year-old male with history of PVD, COPD and diabetes presented with chest pain was seen by Cardiology and had a cardiac catheterization today it showed significant stenosis of left circumflex disease of the ostial proximal left circumflex, discussed with cardiology recommended patient is to be transferred to [facility] for further critical care evaluation with cooker cleaner, patient remains clinically stable he has no complaints of chest pain, will continue to monitor once a bed is available
--- NOTE | 2022-01-20 16:21 | PM.IMPN ---
Progress Note: A&P Assessment and Plan (1) Non-ST elevation [place] (NSTEMI): Code(s): I21.4 - Non-ST elevation (NSTEMI) myocardial infarction Status: Acute Assessment and Plan: admit to IMU trend troponins continuous telemetry EKG reviewed cardiology consult patient got 1 dose of Lovenox in emergency room 01/20/2022 interval history 76-year-old male with history of PVD, COPD and diabetes presented with chest pain on 01/19 was seen by Cardiology and had a cardiac catheterization, it showed significant stenosis of left circumflex disease of the ostial proximal left circumflex, discussed with cardiology recommended patient needs to be transferred to [facility] for further critical care evaluation with restoration silversmith, patient remains clinically stable he has no complaints of chest pain, will continue to monitor once a bed is available be transfer the patient. (2) GERD (gastroesophageal reflux disease): Qualifiers: Esophagitis presence: esophagitis presence not specified Qualified Code(s): K21.9 - Gastro-esophageal reflux disease without esophagitis Code(s): K21.9 - Gastro-esophageal reflux disease without esophagitis Status: Acute Assessment and Plan: continue PPI (3) PVD (peripheral vascular disease): Code(s): I73.9 - Peripheral vascular disease, unspecified Status: Acute Assessment and Plan: status post bypass continue aspirin (4) Obesity (BMI 30.0-34.9): Code(s): E66.9 - Obesity, unspecified Status: Acute Assessment and Plan: lifestyle and diet modifications (5) Chronic obstructive pulmonary disease, unspecified: Qualifiers: COPD type: unspecified COPD Qualified Code(s): J44.9 - Chronic obstructive pulmonary disease, unspecified Code(s): J44.9 - Chronic obstructive pulmonary disease, unspecified Status: Acute Assessment and Plan: not actively wheezing continue home meds (6) Essential hypertension: Code(s): I10 - Essential (primary) hypertension Status: Acute Assessment and Plan: continue home meds continue to monitor (7) Type 2 diabetes mellitus with hyperglycemia, without long-term current use of insulin: Code(s): E11.65 - Type 2 diabetes mellitus with hyperglycemia Status: Acute Assessment and Plan: holding metformin insulin sliding scale as needed Subjective Date/time seen: 01/20/22 16:21 01/20/2022 interval history 76-year-old male with history of PVD, COPD and diabetes presented with chest pain on 01/19 was seen by Cardiology and had a cardiac catheterization, it showed significant stenosis of left circumflex disease of the ostial proximal left circumflex, discussed with cardiology recommended patient needs to be transferred to [facility] for further critical care evaluation with restoration silversmith, patient remains clinically stable he has no complaints of chest pain, will continue to monitor once a bed is available be transfer the patient. Review of Systems Constitutional: Constitutional: Denies chills, Denies fatigue, Denies fever(s), Denies lethargy, Denies malaise, Denies night sweats, Denies poor appetite and Denies weakness Exam Narrative: Patient is comfortable, NAD HEENT: eyes are clear and none icteric LUNGS:CTA HEART: RR S1S2 ABD: BS+, Soft and nontender Lower extremities: no edema SKIN: nonjaundiced Neuro: grossly intact. Objective Data Vital Signs Vital Signs: Vital Signs - 24 hr 01/19/22 16:45 01/19/22 18:00 01/19/22 19:56 Temperature 98 F Pulse Rate 62 55 L 56 L Respiratory Rate 18 Blood Pressure 134/70 Pulse Oximetry 97 Oxygen Delivery 01/19/22 19:52 01/19/22 20:00 01/19/22 20:00 Temperature 97.8 F Pulse Rate 56 L 58 L Respiratory Rate 16 Blood Pressure 142/52 H Pulse Oximetry 98 Oxygen Delivery Room Air 01/19/22 22:0
[2022-01-20 21:11] LABS: Glucose Point of Care 140 mg/dl (65-105)
[2022-01-20 21:50] LABS: Partial Thromboplastin Time 63.3 SECONDS (22.3-36.8)
[2022-01-21] VITALS (16 sets, daily range): BP systolic 134–148; BP diastolic 50–71; PULSE 46–62; RESP 14–18; TEMP 36.3–36.5; O2SAT 94–100
[2022-01-21 05:23] LABS: Partial Thromboplastin Time 38.7 SECONDS (22.3-36.8)
[2022-01-21] MEDS: HEPARIN SODIUM 5,000 UNITS/ML VIAL 4000 UNITS IV PUSH (05:51)
[2022-01-21] MEDS: FINASTERIDE 5 MG TABLET PO (08:23)
[2022-01-21] MEDS: amLODIPine BESYLATE 5 MG TABLET 10 MG PO (08:23)
[2022-01-21] MEDS: TAMSULOSIN HCL 0.4 MG CAPSULE PO (08:24)
[2022-01-21] MEDS: ATORVASTATIN 40 MG TABLET 80 MG PO (08:24)
[2022-01-21] MEDS: METOPROLOL TARTRATE 25 MG TABLET PO ×2 (08:24→21:06)
[2022-01-21] MEDS: CLOPIDOGREL BISULFATE 75 MG TABLET PO (08:26)
[2022-01-21] MEDS: LOSARTAN POTASSIUM 50 MG TABLET PO (08:27)
[2022-01-21] MEDS: OMEGA 3 POLYUNSAT FATTY ACIDS 1 GM CAP PO ×2 (08:27→17:45)
[2022-01-21] MEDS: PANTOPRAZOLE 40 MG TABLET PO (08:27)
[2022-01-21] MEDS: ASPIRIN 81 MG ENTERIC TABLET PO (08:28)
[2022-01-21] MEDS: PREGABALIN (*CRX) 75 MG CAPSULE PO (08:46)
[2022-01-21 08:51] LABS: Glucose Point of Care 160 mg/dl (65-105)
--- NOTE | 2022-01-21 10:01 | PM.PNCARD ---
Progress Note: A&P Assessment and Plan (1) Non-ST elevation [place] (NSTEMI): Code(s): I21.4 - Non-ST elevation (NSTEMI) myocardial infarction <Alice Mayer APN-C - Last Filed: 01/21/22 10:54> Status: Acute <Alice Mayer RIVET PASSER-C - Last Filed: 01/21/22 10:54> (2) PVD (peripheral vascular disease): Code(s): I73.9 - Peripheral vascular disease, unspecified <Alice Mayer RIVET PASSER-C - Last Filed: 01/21/22 10:54> Status: Acute <Alice Mayer RIVET PASSER-C - Last Filed: 01/21/22 10:54> (3) Chronic obstructive pulmonary disease, unspecified: Qualifiers: COPD type: unspecified COPD Qualified Code(s): J44.9 - Chronic obstructive pulmonary disease, unspecified <STEFAN DavisN-C - Last Filed: 01/21/22 10:54> Code(s): J44.9 - Chronic obstructive pulmonary disease, unspecified <Alice Mayer RIVET PASSER-C - Last Filed: 01/21/22 10:54> Status: Acute <STEFAN DavisN-C - Last Filed: 01/21/22 10:54> (4) Essential hypertension: Code(s): I10 - Essential (primary) hypertension <STEFAN DavisN-C - Last Filed: 01/21/22 10:54> Status: Acute <STEFAN DavisN-C - Last Filed: 01/21/22 10:54> (5) History of carotid endarterectomy: Code(s): Z98.890 - Other specified postprocedural states <STEFAN DavisN-C - Last Filed: 01/21/22 10:54> Status: Acute <STEFAN DavisN-C - Last Filed: 01/21/22 10:54> (6) Type 2 diabetes mellitus with hyperglycemia, without long-term current use of insulin: Code(s): E11.65 - Type 2 diabetes mellitus with hyperglycemia <RUFUS Davis - Last Filed: 01/21/22 10:54> Status: Acute <RUFUS Davis - Last Filed: 01/21/22 10:54> Assessment and Plan: Cardiac Cath 01/19 showed: Significant ostial-proximal LCX disease and significant mid-LCX disease. Ostial disease may possibly involve distal left main (distal left main appears to have some moderate plaque on certain views). Left-dominant system. Left-ventricular end-diastolic pressure of 17mmHg. TTE shows: ?1. Left ventricular chamber dimension is normal. ? 2. Left ventricular systolic function is normal, estimated at 50-55%. ? 3. There is mildly increased left ventricular wall thickness. ? 4. The left ventricular diastolic function is grade I diastolic dysfunction. ? 5. Right ventricular systolic function is normal. ? 6. The aortic valve is probable trileaflet. ? 7. The noncoronary cusp is moderately calcified and has restricted leaflet motion. ? 8. There is mild aortic valve stenosis with a peak velocity of 244.24 cm/s, mean gradient of 11 mmHg, and aortic valve area of 1.49 cm2. Hemodynamically stable, no angina Awaiting transfer to [facility] for high-risk PCI. Continue Heparin drip. Continue ASA 81mg daily, Plavix 75mg daily, beta markus, high-intensity statin <RUFUS Davis - Last Filed: 01/21/22 10:54> Cardiac Cath 01/19 showed: Significant ostial-proximal LCX disease and significant mid-LCX disease. Ostial disease may possibly involve distal left main (distal left main appears to have some moderate plaque on certain views). Left-dominant system. Left-ventricular end-diastolic pressure of 17mmHg. TTE shows: ?1. Left ventricular chamber dimension is normal. ? 2. Left ventricular systolic function is normal, estimated at 50-55%. ? 3. There is mildly increased left ventricular wall thickness. ? 4. The left ventricular diastolic function is grade I diastolic dysfunction. ? 5. Right ventricular systolic function is normal. ? 6. The aortic valve is probable trileaflet. ? 7. The noncoronary cusp is moderately calcified and has restricted leaflet motion. ? 8. There is mild aortic valve stenosis with a peak velocity of 244.24 cm/s, mean gradient of 11 mmHg, and aortic valve area of 1.49 cm2. Hemodynamically stable, no angina Awaiting transfer to [facility] for [facility]
[2022-01-21] MEDS: HEPARIN SOD/D5W 100 UNITS/ML 25,000 UNITS/250 ML BAG 20 UNITS IV CONT (11:24)
[2022-01-21 11:51] LABS: Partial Thromboplastin Time 66.5 SECONDS (22.3-36.8)
[2022-01-21] MEDS: HEPARIN SODIUM 5,000 UNITS/ML VIAL 3500 UNITS IV PUSH (13:10)
[2022-01-21 13:12] LABS: Glucose Point of Care 163 mg/dl (65-105)
--- NOTE | 2022-01-21 16:45 | PM.IMPN ---
Progress Note: A&P Assessment and Plan (1) Non-ST elevation [place] (NSTEMI): Code(s): I21.4 - Non-ST elevation (NSTEMI) myocardial infarction Status: Acute Assessment and Plan: admit to IMU trend troponins continuous telemetry EKG reviewed cardiology consult patient got 1 dose of Lovenox in emergency room 01/21/2022 interval history 76-year-old male with history of PVD, COPD and diabetes presented with chest pain on 01/19 was seen by Cardiology and had a cardiac catheterization, it showed significant stenosis of left circumflex disease of the ostial proximal left circumflex, discussed with cardiology recommended patient needs to be transferred to [facility] for further critical care evaluation with machine rug cleaner, patient remains clinically stable he has no complaints of chest pain, will continue to monitor once a bed is available be transfer the patient. (2) GERD (gastroesophageal reflux disease): Qualifiers: Esophagitis presence: esophagitis presence not specified Qualified Code(s): K21.9 - Gastro-esophageal reflux disease without esophagitis Code(s): K21.9 - Gastro-esophageal reflux disease without esophagitis Status: Acute Assessment and Plan: continue PPI (3) PVD (peripheral vascular disease): Code(s): I73.9 - Peripheral vascular disease, unspecified Status: Acute Assessment and Plan: status post bypass continue aspirin (4) Obesity (BMI 30.0-34.9): Code(s): E66.9 - Obesity, unspecified Status: Acute Assessment and Plan: lifestyle and diet modifications (5) Chronic obstructive pulmonary disease, unspecified: Qualifiers: COPD type: unspecified COPD Qualified Code(s): J44.9 - Chronic obstructive pulmonary disease, unspecified Code(s): J44.9 - Chronic obstructive pulmonary disease, unspecified Status: Acute Assessment and Plan: not actively wheezing continue home meds (6) Essential hypertension: Code(s): I10 - Essential (primary) hypertension Status: Acute Assessment and Plan: continue home meds continue to monitor (7) Type 2 diabetes mellitus with hyperglycemia, without long-term current use of insulin: Code(s): E11.65 - Type 2 diabetes mellitus with hyperglycemia Status: Acute Assessment and Plan: holding metformin insulin sliding scale as needed Subjective Date/time seen: 01/21/22 16:45 01/21/2022 interval history 76-year-old male with history of PVD, COPD and diabetes presented with chest pain on 01/19 was seen by Cardiology and had a cardiac catheterization, it showed significant stenosis of left circumflex disease of the ostial proximal left circumflex, discussed with cardiology recommended patient needs to be transferred to [facility] for further critical care evaluation with machine rug cleaner, patient remains clinically stable he has no complaints of chest pain, will continue to monitor once a bed is available be transfer the patient. Review of Systems Constitutional: Constitutional: Denies chills, Denies fatigue, Denies fever(s), Denies lethargy, Denies malaise, Denies night sweats, Denies poor appetite and Denies weakness Exam Narrative: Patient is comfortable, NAD HEENT: eyes are clear and none icteric LUNGS:CTA HEART: RR S1S2 ABD: BS+, Soft and nontender Lower extremities: no edema SKIN: nonjaundiced Neuro: grossly intact. Objective Data Vital Signs Vital Signs: Vital Signs - 24 hr 01/20/22 18:00 01/20/22 20:00 01/20/22 21:40 Temperature 97.2 F L Pulse Rate 55 L 57 L 59 L Respiratory Rate 20 Blood Pressure 143/61 H Pulse Oximetry 97 Oxygen Delivery 01/20/22 23:53 01/20/22 20:00 01/20/22 22:00 Temperature 97.8 F Pulse Rate 50 L 54 L 57 L Respiratory Rate 18 Blood Pressure 130/62 Pulse Oximetry 97 Oxygen Delivery 01/21/22 00:0
[2022-01-21 19:47] LABS: Partial Thromboplastin Time 188.8 SECONDS (22.3-36.8)
[2022-01-21 21:11] LABS: Glucose Point of Care 149 mg/dl (65-105)
[2022-01-21] MEDS: HEPARIN SOD/D5W 100 UNITS/ML 25,000 UNITS/250 ML BAG 19 UNITS IV CONT (23:54)
[2022-01-22] VITALS (15 sets, daily range): BP systolic 127–150; BP diastolic 51–63; PULSE 42–60; RESP 16–18; TEMP 36.1–36.6; O2SAT 93–100
[2022-01-22 07:41] LABS: Glucose Point of Care 132 mg/dl (65-105)
[2022-01-22] MEDS: amLODIPine BESYLATE 5 MG TABLET 10 MG PO (08:51)
[2022-01-22 08:52] LABS: Glucose Point of Care 143 mg/dl (65-105)
[2022-01-22] MEDS: PREGABALIN (*CRX) 75 MG CAPSULE PO (08:52)
[2022-01-22] MEDS: CLOPIDOGREL BISULFATE 75 MG TABLET PO (08:52)
[2022-01-22] MEDS: ASPIRIN 81 MG ENTERIC TABLET PO (08:52)
[2022-01-22] MEDS: FINASTERIDE 5 MG TABLET PO (08:52)
[2022-01-22] MEDS: OMEGA 3 POLYUNSAT FATTY ACIDS 1 GM CAP PO ×2 (08:52→16:11)
[2022-01-22] MEDS: PANTOPRAZOLE 40 MG TABLET PO (08:53)
[2022-01-22] MEDS: TAMSULOSIN HCL 0.4 MG CAPSULE PO (08:53)
[2022-01-22] MEDS: ATORVASTATIN 40 MG TABLET 80 MG PO (08:54)
[2022-01-22] MEDS: LOSARTAN POTASSIUM 50 MG TABLET PO (08:54)
[2022-01-22 09:21] LABS: Partial Thromboplastin Time 106.2 SECONDS (22.3-36.8)
--- NOTE | 2022-01-22 12:12 | PC.NURSE ---
0900- Alice Mayer TELETYPE CLERK notified HR 49-50 - pt awake- did not give metoprolol this am- TELETYPE CLERK agreed not to give this am
--- NOTE | 2022-01-22 12:49 | PM.PNCARD ---
Progress Note: A&P Assessment and Plan (1) Non-ST elevation [place] (NSTEMI): Code(s): I21.4 - Non-ST elevation (NSTEMI) myocardial infarction Status: Acute (2) PVD (peripheral vascular disease): Code(s): I73.9 - Peripheral vascular disease, unspecified Status: Acute (3) Chronic obstructive pulmonary disease, unspecified: Qualifiers: COPD type: unspecified COPD Qualified Code(s): J44.9 - Chronic obstructive pulmonary disease, unspecified Code(s): J44.9 - Chronic obstructive pulmonary disease, unspecified Status: Acute (4) Essential hypertension: Code(s): I10 - Essential (primary) hypertension Status: Acute (5) History of carotid endarterectomy: Code(s): Z98.890 - Other specified postprocedural states Status: Acute (6) Type 2 diabetes mellitus with hyperglycemia, without long-term current use of insulin: Code(s): E11.65 - Type 2 diabetes mellitus with hyperglycemia Status: Acute Plan Cardiac Cath 01/19 showed: Significant ostial-proximal LCX disease and significant mid-LCX disease. Ostial disease may possibly involve distal left main (distal left main appears to have some moderate plaque on certain views). Left-dominant system. Left-ventricular end-diastolic pressure of 17mmHg. TTE shows: ?1. Left ventricular chamber dimension is normal. ? 2. Left ventricular systolic function is normal, estimated at 50-55%. ? 3. There is mildly increased left ventricular wall thickness. ? 4. The left ventricular diastolic function is grade I diastolic dysfunction. ? 5. Right ventricular systolic function is normal. ? 6. The aortic valve is probable trileaflet. ? 7. The noncoronary cusp is moderately calcified and has restricted leaflet motion. ? 8. There is mild aortic valve stenosis with a peak velocity of 244.24 cm/s, mean gradient of 11 mmHg, and aortic valve area of 1.49 cm2. Hemodynamically stable, no angina Awaiting transfer to [facility] for high-risk PCI. Continue Heparin drip. Continue ASA 81mg daily, Plavix 75mg daily, beta markus, high-intensity statin Subjective Date/time seen: 01/22/22 12:49 Cardiology follow up for CAD, NSTEMI Interval history: Reason for visit: NSTEMI HPI: This is a 76-year-old male with a history of carotid artery disease, peripheral arterial disease, COPD/emphysema, type 2 diabetes, hypertension, hyperlipidemia who presented to the [place] ER for chest pain. Patient reports left anterior chest pain that has been occurring for several weeks now, sometimes worsened with exertion. Patient reports that in the last few days it has felt worse. On Tuesday, he had an episode of severe chest pain with radiation down the left arm and numbness throughout whole body. Patient states that his chest pain feels like a squeezing pain. Currently without active chest pain upon my evaluation. Not having shortness of breath, palpitations, lightheadedness/dizziness. ER evaluation showed mild troponin elevation of 0.275 --> 0.295 --> 0.305. Initial EKG in the ED showed possible atrial fibrillation. Repeat EKG showed sinus rhythm with first-degree AV block. CTA chest showed no evidence of acute PE. There are heavy coronary artery calcifications. Date of service 01/20/2022: Awaiting transfer to [facility] [place] for high risk PCI. Patient doing well this AM. Date of service 01/21/2022: Feeling well this morning. States he had some brief, mild chest discomfort earlier this morning which resolved without intervention. Still awaiting transfer to [facility] for high risk PCI. Date of service 01/22/2022: No overnight events. Continues to feel well. Awaiting transfer to [facility]. Exam Const: General: comfortable and no acute distress HENMT: Mouth: Yes moist mucous membranes Eyes: General: appearance normal, both eyes and all related structures Sclera: sclerae normal Neck: Neck: supple and no JVD Resp: Effort & Inspection: normal respiratory effort Auscu
[2022-01-22 14:23] LABS: Glucose Point of Care 162 mg/dl (65-105)
[2022-01-22] MEDS: HEPARIN SOD/D5W 100 UNITS/ML 25,000 UNITS/250 ML BAG 15 UNITS IV CONT (14:44)
[2022-01-22 16:29] LABS: Partial Thromboplastin Time 74.7 SECONDS (22.3-36.8)
--- NOTE | 2022-01-22 16:35 | PM.IMPN ---
Progress Note: A&P Assessment and Plan (1) Non-ST elevation [place] (NSTEMI): Code(s): I21.4 - Non-ST elevation (NSTEMI) myocardial infarction Status: Acute Assessment and Plan: admit to IMU trend troponins continuous telemetry EKG reviewed cardiology consult patient got 1 dose of Lovenox in emergency room 01/22/2022 interval history 76-year-old male with history of PVD, COPD and diabetes presented with chest pain on 01/19 was seen by Cardiology and had a cardiac catheterization, it showed significant stenosis of left circumflex disease of the ostial proximal left circumflex, discussed with cardiology recommended patient needs to be transferred to [facility] for further critical care evaluation with district fire management officer, patient remains clinically stable he has no complaints of chest pain, spoke with pompom maker, will continue to monitor once a bed is available be transfer the patient. (2) GERD (gastroesophageal reflux disease): Qualifiers: Esophagitis presence: esophagitis presence not specified Qualified Code(s): K21.9 - Gastro-esophageal reflux disease without esophagitis Code(s): K21.9 - Gastro-esophageal reflux disease without esophagitis Status: Acute Assessment and Plan: continue PPI (3) PVD (peripheral vascular disease): Code(s): I73.9 - Peripheral vascular disease, unspecified Status: Acute Assessment and Plan: status post bypass continue aspirin (4) Obesity (BMI 30.0-34.9): Code(s): E66.9 - Obesity, unspecified Status: Acute Assessment and Plan: lifestyle and diet modifications (5) Chronic obstructive pulmonary disease, unspecified: Qualifiers: COPD type: unspecified COPD Qualified Code(s): J44.9 - Chronic obstructive pulmonary disease, unspecified Code(s): J44.9 - Chronic obstructive pulmonary disease, unspecified Status: Acute Assessment and Plan: not actively wheezing continue home meds (6) Essential hypertension: Code(s): I10 - Essential (primary) hypertension Status: Acute Assessment and Plan: continue home meds continue to monitor (7) Type 2 diabetes mellitus with hyperglycemia, without long-term current use of insulin: Code(s): E11.65 - Type 2 diabetes mellitus with hyperglycemia Status: Acute Assessment and Plan: holding metformin insulin sliding scale as needed Subjective Date/time seen: 01/22/22 16:35 01/22/2022 interval history 76-year-old male with history of PVD, COPD and diabetes presented with chest pain on 01/19 was seen by Cardiology and had a cardiac catheterization, it showed significant stenosis of left circumflex disease of the ostial proximal left circumflex, discussed with cardiology recommended patient needs to be transferred to [facility] for further critical care evaluation with district fire management officer, patient remains clinically stable he has no complaints of chest pain, spoke with pompom maker, will continue to monitor once a bed is available be transfer the patient. Review of Systems Constitutional: Constitutional: Denies chills, Denies fatigue, Denies fever(s), Denies lethargy, Denies malaise, Denies night sweats, Denies poor appetite and Denies weakness Exam Narrative: Patient is comfortable, NAD HEENT: eyes are clear and none icteric LUNGS:CTA HEART: RR S1S2 ABD: BS+, Soft and nontender Lower extremities: no edema SKIN: nonjaundiced Neuro: grossly intact. Objective Data Vital Signs Vital Signs: Vital Signs - 24 hr 01/21/22 18:00 01/21/22 21:06 01/21/22 20:00 Temperature 97.3 F L Pulse Rate 53 L 55 L 52 L Respiratory Rate 18 Blood Pressure 135/54 L Pulse Oximetry 94 Oxygen Delivery Oxygen Flow Rate 01/21/22 20:00 01/22/22 00:00 01/22/22 00:00 Temperature 97.3 F L Pulse Rate 50 L Respiratory Rate 18 Blood Pressure
[2022-01-22 17:03] LABS: Glucose Point of Care 127 mg/dl (65-105)
[2022-01-22] MEDS: METOPROLOL TARTRATE 25 MG TABLET PO (20:15)
--- NOTE | 2022-01-22 21:24 | PC.NURSE ---
Spoke with [facility] transfer center, update given. Still no bed available.
[2022-01-22 22:18] LABS: Glucose Point of Care 149 mg/dl (65-105)
[2022-01-22 22:44] LABS: Partial Thromboplastin Time 68.2 SECONDS (22.3-36.8)
[2022-01-23] VITALS (14 sets, daily range): BP systolic 121–156; BP diastolic 55–60; PULSE 45–70; RESP 16–20; TEMP 35.8–36.3; O2SAT 95–99
[2022-01-23] MEDS: HEPARIN SODIUM 5,000 UNITS/ML VIAL 3500 UNITS IV PUSH ×2 (01:02→17:44)
[2022-01-23] MEDS: HEPARIN SOD/D5W 100 UNITS/ML 25,000 UNITS/250 ML BAG 17 UNITS IV CONT ×2 (06:07→23:26)
[2022-01-23 08:13] LABS: Glucose Point of Care 136 mg/dl (65-105)
[2022-01-23] MEDS: TAMSULOSIN HCL 0.4 MG CAPSULE PO (08:59)
[2022-01-23] MEDS: amLODIPine BESYLATE 5 MG TABLET 10 MG PO (08:59)
[2022-01-23] MEDS: OMEGA 3 POLYUNSAT FATTY ACIDS 1 GM CAP PO ×2 (08:59→16:35)
[2022-01-23] MEDS: ASPIRIN 81 MG ENTERIC TABLET PO (09:00)
[2022-01-23] MEDS: LOSARTAN POTASSIUM 50 MG TABLET PO (09:00)
[2022-01-23] MEDS: FINASTERIDE 5 MG TABLET PO (09:00)
[2022-01-23] MEDS: CLOPIDOGREL BISULFATE 75 MG TABLET PO (09:00)
[2022-01-23] MEDS: PANTOPRAZOLE 40 MG TABLET PO (09:00)
[2022-01-23] MEDS: ATORVASTATIN 40 MG TABLET 80 MG PO (09:00)
[2022-01-23] MEDS: PREGABALIN (*CRX) 75 MG CAPSULE PO (09:00)
[2022-01-23 09:24] LABS: Partial Thromboplastin Time 110.9 SECONDS (22.3-36.8)
--- NOTE | 2022-01-23 09:57 | PM.PNCARD ---
Progress Note: A&P Assessment and Plan (1) Non-ST elevation [place] (NSTEMI): Code(s): I21.4 - Non-ST elevation (NSTEMI) myocardial infarction Status: Acute Plan 76-year-old man with left coronary dominant circulation and high-grade stenosis of the circumflex ostium. She is awaiting transfer to a higher level of care for PCI of this higher risk lesion. The patient is otherwise stable. Will correspond with my colleagues at [facility]. If he there is no availability in the foreseeable future I believe we should start investigating other options such as [place] or [facility]. Fabien Robertson MD [facility] Subjective Date/time seen: Date of service: 01/23/22 09:57 Interval history: Follow-up visit in this 76-year-old man with: Acute coronary syndrome found angiographically several days ago to have critical disease in the ostium of the circumflex. Due to the proximity to the left main in the left coronary dominant circulation is PCI of this was recommended and a larger hospital with CABG capability. The patient is awaiting a bed at [facility] for transfer for this reason. He continues to feel well he has been heparinized and awaiting transfer for several days now. Exam Const: General: comfortable and no acute distress Other: Pleasant gentleman appearing his stated age watching television, playing cards HENMT: Mouth: Yes moist mucous membranes Eyes: Sclera: sclerae normal Neck: Neck: supple and no JVD Resp: Effort & Inspection: normal respiratory effort Auscultation: clear to auscultation bilaterally Cardio: Rate: regular rate Rhythm: regular rhythm Other: Very soft systolic murmur does not radiate from the left sternal border no diastolic murmur no gallop GI: GI Palp: Yes Soft to palpation Auscultation: normal bowel sounds Skin: General skin exam: normal color Neuro: Other: Alert and oriented x3 Extrem: Other: No edema, good perfusion Objective Data Vital Signs Vital Signs: Vital Signs - 24 hr 01/22/22 10:00 01/22/22 12:00 01/22/22 12:00 Temperature 36.6 C Pulse Rate 52 L 55 L 54 L Respiratory Rate 18 Blood Pressure 150/56 H Pulse Oximetry 98 Oxygen Delivery 01/22/22 12:00 01/22/22 14:36 01/22/22 16:00 Temperature 36.1 C L Pulse Rate 51 L 52 L Respiratory Rate 16 Blood Pressure 149/61 H Pulse Oximetry 96 Oxygen Delivery Room Air 01/22/22 16:00 01/22/22 16:00 01/22/22 18:00 Temperature Pulse Rate 53 L 52 L Respiratory Rate Blood Pressure Pulse Oximetry Oxygen Delivery Room Air 01/22/22 20:15 01/22/22 20:00 01/23/22 00:00 Temperature 36.2 C L 36.3 C L Pulse Rate 55 L 54 L 50 L Respiratory Rate 16 18 Blood Pressure 145/51 H 121/58 L Pulse Oximetry 93 97 Oxygen Delivery 01/22/22 20:00 01/22/22 20:00 01/22/22 22:00 Temperature Pulse Rate 52 L 60 Respiratory Rate Blood Pressure Pulse Oximetry 93 Oxygen Delivery Room Air 01/23/22 00:00 01/23/22 00:00 01/23/22 02:00 Temperature Pulse Rate 45 L 56 L Respiratory Rate Blood Pressure Pulse Oximetry 97 Oxygen Delivery Room Air 01/23/22 04:00 01/23/22 04:00 01/23/22 04:00 Temperature 36.3 C L Pulse Rate 49 L 48 L Respiratory Rate 16 Blood Pressure 125/55 L Pulse Oximetry 98 98 Oxygen Delivery Room Air 01/23/22 06:00 01/23/22 08:00 01/23/22 08:59 Temperature 35.8 C L Pulse Rate 50 L 48 L 48 L Respiratory Rate 16 Blood Pressure 136/59 L Pulse Oximetry 95 Oxygen Delivery Intake/Output Intake/Output: Intake & Output 01/20/22 01/21/22 01/22/22 01/23/22 23:59 23:59 23:59 23:59 Intake Total 3610 2560 3150 800 Output Total 2000 2300 900 1000 Balance 4787 573 1712 -200 Meds/Results Medications: Active Medications Generic Name Dose Route Start Last Admin Trade Name Freq PRN Reason Stop Dose Admin Amlodipine Besylate 10 mg 01/19/22 09:00 01/23/22 08:59 A
[2022-01-23 12:12] LABS: Glucose Point of Care 153 mg/dl (65-105)
--- NOTE | 2022-01-23 13:53 | PM.IMPN ---
Progress Note: A&P Assessment and Plan (1) Non-ST elevation [place] (NSTEMI): Code(s): I21.4 - Non-ST elevation (NSTEMI) myocardial infarction Status: Acute Assessment and Plan: admit to IMU trend troponins continuous telemetry EKG reviewed cardiology consult patient got 1 dose of Lovenox in emergency room 01/23/2022 interval history 76-year-old male with history of PVD, COPD and diabetes presented with chest pain on 01/19 was seen by Cardiology and had a cardiac catheterization, it showed significant stenosis of left circumflex disease of the ostial proximal left circumflex, discussed with cardiology recommended patient needs to be transferred to [facility] for further critical care evaluation with lawn mower repairer for higher risk lesion, patient remains clinically stable he has no complaints of chest pain, spoke with manager retail sales, will continue to monitor once a bed is available be transfer the patient. (2) GERD (gastroesophageal reflux disease): Qualifiers: Esophagitis presence: esophagitis presence not specified Qualified Code(s): K21.9 - Gastro-esophageal reflux disease without esophagitis Code(s): K21.9 - Gastro-esophageal reflux disease without esophagitis Status: Acute Assessment and Plan: continue PPI (3) PVD (peripheral vascular disease): Code(s): I73.9 - Peripheral vascular disease, unspecified Status: Acute Assessment and Plan: status post bypass continue aspirin (4) Obesity (BMI 30.0-34.9): Code(s): E66.9 - Obesity, unspecified Status: Acute Assessment and Plan: lifestyle and diet modifications (5) Chronic obstructive pulmonary disease, unspecified: Qualifiers: COPD type: unspecified COPD Qualified Code(s): J44.9 - Chronic obstructive pulmonary disease, unspecified Code(s): J44.9 - Chronic obstructive pulmonary disease, unspecified Status: Acute Assessment and Plan: not actively wheezing continue home meds (6) Essential hypertension: Code(s): I10 - Essential (primary) hypertension Status: Acute Assessment and Plan: continue home meds continue to monitor (7) Type 2 diabetes mellitus with hyperglycemia, without long-term current use of insulin: Code(s): E11.65 - Type 2 diabetes mellitus with hyperglycemia Status: Acute Assessment and Plan: holding metformin insulin sliding scale as needed Subjective Date/time seen: 01/23/22 13:53 01/23/2022 interval history 76-year-old male with history of PVD, COPD and diabetes presented with chest pain on 01/19 was seen by Cardiology and had a cardiac catheterization, it showed significant stenosis of left circumflex disease of the ostial proximal left circumflex, discussed with cardiology recommended patient needs to be transferred to [facility] for further critical care evaluation with lawn mower repairer for higher risk lesion, patient remains clinically stable he has no complaints of chest pain, spoke with manager retail sales, will continue to monitor once a bed is available be transfer the patient. Review of Systems Constitutional: Constitutional: Denies chills, Denies fatigue, Denies fever(s), Denies lethargy, Denies malaise, Denies night sweats, Denies poor appetite and Denies weakness Exam Narrative: Patient is comfortable, NAD HEENT: eyes are clear and none icteric LUNGS:CTA HEART: RR S1S2 ABD: BS+, Soft and nontender Lower extremities: no edema SKIN: nonjaundiced Neuro: grossly intact. Objective Data Vital Signs Vital Signs: Vital Signs - 24 hr 01/22/22 14:36 01/22/22 16:00 01/22/22 16:00 Temperature 97 F L Pulse Rate 51 L 52 L 53 L Respiratory Rate 16 Blood Pressure 149/61 H Pulse Oximetry 96 Oxygen Delivery 01/22/22 16:00 01/22/22 18:00 01/22/22 20:15 Temperature Pulse Rate 52 L 55 L Respiratory Rate
[2022-01-23 16:30] LABS: Glucose Point of Care 153 mg/dl (65-105)
[2022-01-23 17:24] LABS: Partial Thromboplastin Time 64.3 SECONDS (22.3-36.8)
[2022-01-23] MEDS: METOPROLOL TARTRATE 25 MG TABLET PO (20:13)
[2022-01-23 20:35] LABS: Glucose Point of Care 160 mg/dl (65-105)
--- NOTE | 2022-01-23 20:49 | PC.NURSE ---
[facility] transfer center called for update. Still no beds available.
[2022-01-24] VITALS (14 sets, daily range): BP systolic 113–148; BP diastolic 49–64; PULSE 46–69; RESP 14–20; TEMP 35.9–36.5; O2SAT 95–99
[2022-01-24 00:03] LABS: Partial Thromboplastin Time 81.7 SECONDS (22.3-36.8)
[2022-01-24 06:47] LABS: Partial Thromboplastin Time 104.9 SECONDS (22.3-36.8)
[2022-01-24 08:22] LABS: Glucose Point of Care 140 mg/dl (65-105)
[2022-01-24] MEDS: TAMSULOSIN HCL 0.4 MG CAPSULE PO (09:01)
[2022-01-24] MEDS: PANTOPRAZOLE 40 MG TABLET PO (09:01)
[2022-01-24] MEDS: OMEGA 3 POLYUNSAT FATTY ACIDS 1 GM CAP PO ×2 (09:01→17:12)
[2022-01-24] MEDS: ASPIRIN 81 MG ENTERIC TABLET PO (09:02)
[2022-01-24] MEDS: FINASTERIDE 5 MG TABLET PO (09:04)
[2022-01-24] MEDS: LOSARTAN POTASSIUM 50 MG TABLET PO (09:04)
[2022-01-24] MEDS: amLODIPine BESYLATE 5 MG TABLET 10 MG PO (09:04)
[2022-01-24] MEDS: ATORVASTATIN 40 MG TABLET 80 MG PO (09:04)
[2022-01-24] MEDS: CLOPIDOGREL BISULFATE 75 MG TABLET PO (09:04)
[2022-01-24] MEDS: PREGABALIN (*CRX) 75 MG CAPSULE PO (09:07)
--- NOTE | 2022-01-24 12:13 | PM.PNCARD ---
Progress Note: A&P Assessment and Plan (1) Non-ST elevation [place] (NSTEMI): Code(s): I21.4 - Non-ST elevation (NSTEMI) myocardial infarction Status: Acute Plan 76-year-old man with ischemic heart disease presentation with ACS and angiographically found to have a culprit disease in the ostium of his circumflex with a left coronary dominant septum. Because of proximity to and some involvement of his distal left main PCI is higher risk and was recommended to be performed at a larger hospital with higher level of care/capability. This is reasonable. Unfortunately the bed capacity is stressed because of more COVID patients, influenza patient's etc.. There is no ability to accept him at this time. Fabien Robertson MD [facility] Subjective Date/time seen: Date of service: 01/24/22 12:13 Interval history: Follow-up visit in this 76-year-old man with coronary disease presenting with ACS and found to have severe stenosis at the circumflex ostium some involvement in the distal left main and is waiting for transfer to higher level of care for higher risk PCI of this disease. Patient remains asymptomatic and is has known no complaints has IV heparin running. Still waiting for a bed at [facility] since middle of last week Exam Const: General: comfortable and no acute distress Eyes: Sclera: sclerae normal Neck: Neck: supple and no JVD Resp: Effort & Inspection: normal respiratory effort Auscultation: clear to auscultation bilaterally Cardio: Rate: regular rate Rhythm: regular rhythm Other: No murmur no gallop GI: GI Palp: Yes Soft to palpation Auscultation: normal bowel sounds Skin: General skin exam: normal color Neuro: Other: Normal cognition Extrem: Other: No edema, good distal pulses Objective Data Vital Signs Vital Signs: Vital Signs - 24 hr 01/23/22 14:00 01/23/22 16:00 01/23/22 16:00 Temperature 36.3 C L Pulse Rate 50 L 62 Respiratory Rate 20 Blood Pressure 128/57 L Pulse Oximetry 97 Oxygen Delivery Room Air 01/23/22 16:00 01/23/22 18:00 01/23/22 20:13 Temperature Pulse Rate 54 L 57 L 70 Respiratory Rate Blood Pressure Pulse Oximetry Oxygen Delivery 01/23/22 20:00 01/23/22 20:00 01/23/22 20:00 Temperature 36.3 C L Pulse Rate 64 54 L Respiratory Rate 16 Blood Pressure 149/56 H Pulse Oximetry 99 99 Oxygen Delivery Room Air 01/23/22 22:00 01/24/22 00:00 01/24/22 00:00 Temperature 36.3 C L Pulse Rate 53 L 50 L 65 Respiratory Rate 18 Blood Pressure 122/57 L Pulse Oximetry 96 Oxygen Delivery 01/24/22 00:00 01/24/22 02:00 01/24/22 04:00 Temperature Pulse Rate 63 51 L Respiratory Rate Blood Pressure Pulse Oximetry 96 Oxygen Delivery Room Air 01/24/22 04:00 01/24/22 04:00 01/24/22 06:00 Temperature 36.2 C L Pulse Rate 50 L 46 L Respiratory Rate 16 Blood Pressure 113/61 Pulse Oximetry 96 95 Oxygen Delivery Room Air 01/24/22 08:00 01/24/22 09:03 01/24/22 08:00 Temperature 35.9 C L Pulse Rate 53 L 48 L Respiratory Rate 14 Blood Pressure 133/57 L Pulse Oximetry 99 Oxygen Delivery Room Air 01/24/22 08:00 Temperature Pulse Rate 50 L Respiratory Rate Blood Pressure Pulse Oximetry Oxygen Delivery Intake/Output Intake/Output: Intake & Output 01/21/22 01/22/22 01/23/22 01/24/22 23:59 23:59 23:59 23:59 Intake Total 2560 3150 2990 Output Total 2300 900 1500 950 Balance 260 2250 1490 -950 Meds/Results Medications: Active Medications Generic Name Dose Route Start Last Admin Trade Name Davidq PRN Reason Stop Dose Admin Amlodipine Besylate 10 mg 01/19/22 09:00 01/24/22 09:04 Amlodipine Besylate 5 Mg Tablet PO 10 mg DAILY YARIEL Administration Aspirin 81 mg 01/19/22 09:00 01/24/22 09:02 Aspirin 81 Mg Enteric Tablet PO 81 mg DAILY YARIEL Administration Atorvastatin Calcium 80 mg 01/20/22 09:00 01/24/22 09:04
[2022-01-24 12:28] LABS: Glucose Point of Care 151 mg/dl (65-105)
[2022-01-24] MEDS: HEPARIN SOD/D5W 100 UNITS/ML 25,000 UNITS/250 ML BAG 17 UNITS IV CONT (13:42)
--- NOTE | 2022-01-24 14:53 | PM.IMPN ---
Progress Note: A&P Assessment and Plan (1) Non-ST elevation [place] (NSTEMI): Code(s): I21.4 - Non-ST elevation (NSTEMI) myocardial infarction Status: Acute Assessment and Plan: admit to IMU trend troponins continuous telemetry EKG reviewed cardiology consult patient got 1 dose of Lovenox in emergency room 01/24/2022 interval history 76-year-old male with history of PVD, COPD and diabetes presented with chest pain on 01/19 was seen by Cardiology and had a cardiac catheterization, it showed significant stenosis of left circumflex disease of the ostial proximal left circumflex, discussed with cardiology recommended patient needs to be transferred to [facility] for further critical care evaluation with business and services instructor for higher risk lesion, patient remains clinically stable he has no complaints of chest pain, spoke with boiler attendant, will continue to monitor once a bed is available be transfer the patient. (2) GERD (gastroesophageal reflux disease): Qualifiers: Esophagitis presence: esophagitis presence not specified Qualified Code(s): K21.9 - Gastro-esophageal reflux disease without esophagitis Code(s): K21.9 - Gastro-esophageal reflux disease without esophagitis Status: Acute Assessment and Plan: continue PPI (3) PVD (peripheral vascular disease): Code(s): I73.9 - Peripheral vascular disease, unspecified Status: Acute Assessment and Plan: status post bypass continue aspirin (4) Obesity (BMI 30.0-34.9): Code(s): E66.9 - Obesity, unspecified Status: Acute Assessment and Plan: lifestyle and diet modifications (5) Chronic obstructive pulmonary disease, unspecified: Qualifiers: COPD type: unspecified COPD Qualified Code(s): J44.9 - Chronic obstructive pulmonary disease, unspecified Code(s): J44.9 - Chronic obstructive pulmonary disease, unspecified Status: Acute Assessment and Plan: not actively wheezing continue home meds (6) Essential hypertension: Code(s): I10 - Essential (primary) hypertension Status: Acute Assessment and Plan: continue home meds continue to monitor (7) Type 2 diabetes mellitus with hyperglycemia, without long-term current use of insulin: Code(s): E11.65 - Type 2 diabetes mellitus with hyperglycemia Status: Acute Assessment and Plan: holding metformin insulin sliding scale as needed Subjective Date/time seen: 01/24/22 14:53 01/24/2022 interval history 76-year-old male with history of PVD, COPD and diabetes presented with chest pain on 01/19 was seen by Cardiology and had a cardiac catheterization, it showed significant stenosis of left circumflex disease of the ostial proximal left circumflex, discussed with cardiology recommended patient needs to be transferred to [facility] for further critical care evaluation with business and services instructor for higher risk lesion, patient remains clinically stable he has no complaints of chest pain, spoke with boiler attendant, will continue to monitor once a bed is available be transfer the patient. Review of Systems Constitutional: Constitutional: Denies chills, Denies fatigue, Denies fever(s), Denies lethargy, Denies malaise, Denies night sweats, Denies poor appetite and Denies weakness Exam Narrative: Patient is comfortable, NAD HEENT: eyes are clear and none icteric LUNGS:CTA HEART: RR S1S2 ABD: BS+, Soft and nontender Lower extremities: no edema SKIN: nonjaundiced Neuro: grossly intact. Objective Data Vital Signs Vital Signs: Vital Signs - 24 hr 01/23/22 16:00 01/23/22 16:00 01/23/22 16:00 Temperature 97.3 F L Pulse Rate 62 54 L Respiratory Rate 20 Blood Pressure 128/57 L Pulse Oximetry 97 Oxygen Delivery Room Air 01/23/22 18:00 01/23/22 20:13 01/23/22 20:00 Temperature 97.3 F L Pulse Rate 57 L 70 64 Re
[2022-01-24 18:53] LABS: Glucose Point of Care 164 mg/dl (65-105)
[2022-01-24 20:40] LABS: Glucose Point of Care 153 mg/dl (65-105)
--- NOTE | 2022-01-24 22:17 | PC.NURSE ---
[facility] transfer center called for update. Still no bed available.
[2022-01-25] VITALS (16 sets, daily range): BP systolic 130–147; BP diastolic 46–59; PULSE 54–70; RESP 16–20; TEMP 36.2–36.6; O2SAT 96–100
[2022-01-25] MEDS: HEPARIN SOD/D5W 100 UNITS/ML 25,000 UNITS/250 ML BAG 17 UNITS IV CONT ×2 (04:37→20:22)
[2022-01-25 04:54] LABS: Hematocrit 36.3 % (42.0-52.0); Hemoglobin 12.1 g/dL (14.0-18.0); Mean Corpuscular HGB Conc 33.3 g/dl (32-36); Mean Corpuscular Hemoglobin 31.3 pg (26-34); Platelet Count Result 178 k/mm3 (150-375); Red Blood Count 3.86 M/mm3 (4.6-6.20); White Blood Count 5.2 K/mm3 (4.5-10.0)
[2022-01-25 05:05] LABS: Anion Gap 8 mmol/L (8-16); Blood Urea Nitrogen 22 mg/dL (9-20); Calcium 8.7 mg/dL (8.4-10.2); Carbon Dioxide 25 mmol/L (22-30); Chloride 102 mmol/L (98-107); Estimated CRCL calculation 53 ml/min; Estimated Glomerular Filt Rate 59; Glucose 128 mg/dL (65-110); Partial Thromboplastin Time 94.9 SECONDS (22.3-36.8); Potassium 4.1 mmol/L (3.4-5.0); Sodium 135 mmol/L (137-145)
[2022-01-25 07:58] LABS: Glucose Point of Care 148 mg/dl (65-105)
[2022-01-25] MEDS: amLODIPine BESYLATE 5 MG TABLET 10 MG PO (08:31)
[2022-01-25] MEDS: ASPIRIN 81 MG ENTERIC TABLET PO (08:31)
[2022-01-25] MEDS: ATORVASTATIN 40 MG TABLET 80 MG PO (08:31)
[2022-01-25] MEDS: LOSARTAN POTASSIUM 50 MG TABLET PO (08:32)
[2022-01-25] MEDS: CLOPIDOGREL BISULFATE 75 MG TABLET PO (08:32)
[2022-01-25] MEDS: FINASTERIDE 5 MG TABLET PO (08:32)
[2022-01-25] MEDS: METOPROLOL SUCCINATE EXT REL 25 MG TABCR PO (08:32)
[2022-01-25] MEDS: OMEGA 3 POLYUNSAT FATTY ACIDS 1 GM CAP PO ×2 (08:33→17:14)
[2022-01-25] MEDS: PANTOPRAZOLE 40 MG TABLET PO (08:33)
[2022-01-25] MEDS: TAMSULOSIN HCL 0.4 MG CAPSULE PO (08:33)
[2022-01-25] MEDS: PREGABALIN (*CRX) 75 MG CAPSULE PO (08:37)
--- NOTE | 2022-01-25 11:19 | PM.PNCARD ---
Progress Note: A&P Assessment and Plan (1) Non-ST elevation [place] (NSTEMI): Code(s): I21.4 - Non-ST elevation (NSTEMI) myocardial infarction Status: Acute Assessment and Plan: Cardiac Cath 01/19 showed: Significant ostial-proximal LCX disease and significant mid-LCX disease. Ostial disease may possibly involve distal left main (distal left main appears to have some moderate plaque on certain views). Left-dominant system. Left-ventricular end-diastolic pressure of 17mmHg. TTE shows: ?1. Left ventricular chamber dimension is normal. ? 2. Left ventricular systolic function is normal, estimated at 50-55%. ? 3. There is mildly increased left ventricular wall thickness. ? 4. The left ventricular diastolic function is grade I diastolic dysfunction. ? 5. Right ventricular systolic function is normal. ? 6. The aortic valve is probable trileaflet. ? 7. The noncoronary cusp is moderately calcified and has restricted leaflet motion. ? 8. There is mild aortic valve stenosis with a peak velocity of 244.24 cm/s, mean gradient of 11 mmHg, and aortic valve area of 1.49 cm2. Hemodynamically stable, no angina Awaiting transfer to [facility] for high-risk PCI. Continue Heparin drip. Continue ASA 81mg daily, Plavix 75mg daily, beta markus, high-intensity statin Subjective Date/time seen: 01/25/22 10:19 Interval history: Follow-up visit in this 76-year-old man with coronary disease presenting with ACS and found to have severe stenosis at the circumflex ostium some involvement in the distal left main and is waiting for transfer to higher level of care for higher risk PCI of this disease. Patient remains asymptomatic and is has known no complaints has IV heparin running. Still waiting for a bed at [facility] since middle of last week Date of service 01/25/22: Continues to await transfer to to [facility]. He remains asymptomatic and without complaint. Remains on IV heparin Review of Systems Review of Systems: All systems reviewed & are unremarkable except as noted in HPI and below Exam Const: General: comfortable and no acute distress HENMT: Mouth: Yes moist mucous membranes Eyes: General: appearance normal, both eyes and all related structures Sclera: sclerae normal Neck: Neck: supple and no JVD Resp: Effort & Inspection: normal respiratory effort Auscultation: clear to auscultation bilaterally Cardio: Rate: regular rate Rhythm: regular rhythm Heart sounds: no murmurs GI: Auscultation: normal bowel sounds Skin: General skin exam: normal color Neuro: Speech: normal speech Motor exam (neuro): 5/5 motor strength present throughout Other: Normal cognition Extrem: General: normal to inspection and no edema Other: No edema, good distal pulses Psych: Mental Status: mental status grossly normal Affect: normal affect Objective Data Vital Signs Vital Signs: Vital Signs - 24 hr 01/24/22 12:00 01/24/22 12:00 01/24/22 14:00 Temperature 36.2 C L Pulse Rate 56 L 53 L 65 Respiratory Rate 20 Blood Pressure 148/49 H Pulse Oximetry 97 Oxygen Delivery Oxygen Flow Rate 01/24/22 12:00 01/24/22 16:00 01/24/22 16:00 Temperature 36.5 C Pulse Rate 55 L 56 L Respiratory Rate 20 Blood Pressure 138/55 L Pulse Oximetry 96 Oxygen Delivery Room Air Oxygen Flow Rate 01/24/22 16:00 01/24/22 18:00 01/24/22 20:00 Temperature 36.5 C Pulse Rate 57 L 58 L Respiratory Rate 18 Blood Pressure 141/59 H Pulse Oximetry 97 Oxygen Delivery Room Air Oxygen Flow Rate 01/24/22 20:00 01/24/22 20:00 01/24/22 22:00 Temperature Pulse Rate 55 L 57 L Respiratory Rate Blood Pressure Pulse Oximetry 97 Oxygen Delivery Room Air Oxygen Flow Rate 01/24/22 23:53 01/25/22 00:00 01/25/22 00:00 Temperature 36.4 C Pulse Rate 69 59 L Respiratory Rate 18 Blood Pressure 138/64 Pulse Oximetry 97 97 Oxygen Delivery Room Air Oxygen Flow
--- NOTE | 2022-01-25 11:38 | PCNWS ---
Weekly nutritional screen. Patient is tolerating current diet with adequate intake. No weight loss reported. No nutritional needs at this time.
[2022-01-25] MEDS: INSULIN ASPART (*BKC) 100 UNITS/ML SUB-Q ×2 (11:43→17:12)
[2022-01-25 11:45] LABS: Glucose Point of Care 235 mg/dl (65-105)
--- NOTE | 2022-01-25 16:59 | PM.IMPN ---
Progress Note: A&P Assessment and Plan (1) Non-ST elevation [place] (NSTEMI): Code(s): I21.4 - Non-ST elevation (NSTEMI) myocardial infarction Status: Acute Assessment and Plan: admit to IMU trend troponins continuous telemetry EKG reviewed cardiology consult patient got 1 dose of Lovenox in emergency room 01/25/2022 interval history 76-year-old male with history of PVD, COPD and diabetes presented with chest pain on 01/19 was seen by Cardiology and had a cardiac catheterization, it showed significant stenosis of left circumflex disease of the ostial proximal left circumflex, discussed with cardiology recommended patient needs to be transferred to [facility] for further critical care evaluation with theatre manager for higher risk lesion, patient remains clinically stable he has no complaints of chest pain, spoke with silk spreader, will continue to monitor once a bed is available be transfer the patient. (2) GERD (gastroesophageal reflux disease): Qualifiers: Esophagitis presence: esophagitis presence not specified Qualified Code(s): K21.9 - Gastro-esophageal reflux disease without esophagitis Code(s): K21.9 - Gastro-esophageal reflux disease without esophagitis Status: Acute Assessment and Plan: continue PPI (3) PVD (peripheral vascular disease): Code(s): I73.9 - Peripheral vascular disease, unspecified Status: Acute Assessment and Plan: status post bypass continue aspirin (4) Obesity (BMI 30.0-34.9): Code(s): E66.9 - Obesity, unspecified Status: Acute Assessment and Plan: lifestyle and diet modifications (5) Chronic obstructive pulmonary disease, unspecified: Qualifiers: COPD type: unspecified COPD Qualified Code(s): J44.9 - Chronic obstructive pulmonary disease, unspecified Code(s): J44.9 - Chronic obstructive pulmonary disease, unspecified Status: Acute Assessment and Plan: not actively wheezing continue home meds (6) Essential hypertension: Code(s): I10 - Essential (primary) hypertension Status: Acute Assessment and Plan: continue home meds continue to monitor (7) Type 2 diabetes mellitus with hyperglycemia, without long-term current use of insulin: Code(s): E11.65 - Type 2 diabetes mellitus with hyperglycemia Status: Acute Assessment and Plan: holding metformin insulin sliding scale as needed Subjective Date/time seen: 01/25/22 16:59 01/25/2022 interval history 76-year-old male with history of PVD, COPD and diabetes presented with chest pain on 01/19 was seen by Cardiology and had a cardiac catheterization, it showed significant stenosis of left circumflex disease of the ostial proximal left circumflex, discussed with cardiology recommended patient needs to be transferred to [facility] for further critical care evaluation with theatre manager for higher risk lesion, patient remains clinically stable he has no complaints of chest pain, spoke with silk spreader, will continue to monitor once a bed is available be transfer the patient. Review of Systems Constitutional: Constitutional: Denies chills, Denies fatigue, Denies fever(s), Denies lethargy, Denies malaise, Denies night sweats, Denies poor appetite and Denies weakness Exam Narrative: Patient is comfortable, NAD HEENT: eyes are clear and none icteric LUNGS:CTA HEART: RR S1S2 ABD: BS+, Soft and nontender Lower extremities: no edema SKIN: nonjaundiced Neuro: grossly intact. Objective Data Vital Signs Vital Signs: Vital Signs - 24 hr 01/24/22 18:00 01/24/22 20:00 01/24/22 20:00 Temperature 97.7 F Pulse Rate 57 L 58 L 55 L Respiratory Rate 18 Blood Pressure 141/59 H Pulse Oximetry 97 Oxygen Delivery Oxygen Flow Rate 01/24/22 20:00 01/24/22 22:00 01/24/22 23:53 Temperature 97.6 F Pulse Rate 5
[2022-01-25 17:05] LABS: Glucose Point of Care 210 mg/dl (65-105)
[2022-01-25 20:19] LABS: Glucose Point of Care 211 mg/dl (65-105)
[2022-01-26] VITALS (10 sets, daily range): BP systolic 132–140; BP diastolic 45–58; PULSE 50–85; RESP 16–20; TEMP 36.2–36.8; O2SAT 96–100
[2022-01-26 05:05] LABS: Hematocrit 36.1 % (42.0-52.0); Hemoglobin 11.7 g/dL (14.0-18.0); Mean Corpuscular HGB Conc 32.4 g/dl (32-36); Mean Corpuscular Hemoglobin 30.4 pg (26-34); Mean Corpuscular Volume 93.8 fl (80-100); Mean Platelet Volume 10.7 fl (7.4-10.4); Platelet Count Result 181 k/mm3 (150-375); Red Blood Count 3.85 M/mm3 (4.6-6.20); Red Cell Distribution Width 13.5 % (11.5-14.5); White Blood Count 5.6 K/mm3 (4.5-10.0)
[2022-01-26 05:13] LABS: Anion Gap 8 mmol/L (8-16); Blood Urea Nitrogen 21 mg/dL (9-20); Calcium 8.8 mg/dL (8.4-10.2); Carbon Dioxide 25 mmol/L (22-30); Chloride 105 mmol/L (98-107); Estimated CRCL calculation 53 ml/min; Estimated Glomerular Filt Rate 59; Glucose 145 mg/dL (65-110); Potassium 4.1 mmol/L (3.4-5.0); Sodium 138 mmol/L (137-145)
[2022-01-26 08:24] LABS: Glucose Point of Care 146 mg/dl (65-105)
[2022-01-26] MEDS: CLOPIDOGREL BISULFATE 75 MG TABLET PO (09:25)
[2022-01-26] MEDS: FINASTERIDE 5 MG TABLET PO (09:25)
[2022-01-26] MEDS: ASPIRIN 81 MG ENTERIC TABLET PO (09:25)
[2022-01-26] MEDS: amLODIPine BESYLATE 5 MG TABLET 10 MG PO (09:25)
[2022-01-26] MEDS: ATORVASTATIN 40 MG TABLET 80 MG PO (09:25)
[2022-01-26] MEDS: OMEGA 3 POLYUNSAT FATTY ACIDS 1 GM CAP PO ×2 (09:25→16:47)
[2022-01-26] MEDS: TAMSULOSIN HCL 0.4 MG CAPSULE PO (09:25)
[2022-01-26] MEDS: LOSARTAN POTASSIUM 50 MG TABLET PO (09:25)
[2022-01-26] MEDS: PANTOPRAZOLE 40 MG TABLET PO (09:25)
[2022-01-26] MEDS: PREGABALIN (*CRX) 75 MG CAPSULE PO (09:29)
[2022-01-26 09:30] LABS: Partial Thromboplastin Time 115.6 SECONDS (22.3-36.8)
[2022-01-26] MEDS: HEPARIN SOD/D5W 100 UNITS/ML 25,000 UNITS/250 ML BAG 15 UNITS IV CONT (09:48)
[2022-01-26] MEDS: INSULIN ASPART (*BKC) 100 UNITS/ML SUB-Q ×2 (12:20→16:47)
[2022-01-26 12:25] LABS: Glucose Point of Care 252 mg/dl (65-105)
--- NOTE | 2022-01-26 13:17 | PM.PNCARD ---
Progress Note: A&P Assessment and Plan (1) Non-ST elevation [place] (NSTEMI): Code(s): I21.4 - Non-ST elevation (NSTEMI) myocardial infarction Status: Acute Assessment and Plan: Cardiac Cath 01/19 showed: Significant ostial-proximal LCX disease and significant mid-LCX disease. Ostial disease may possibly involve distal left main (distal left main appears to have some moderate plaque on certain views). Left-dominant system. Left-ventricular end-diastolic pressure of 17mmHg. TTE shows: ?1. Left ventricular chamber dimension is normal. ? 2. Left ventricular systolic function is normal, estimated at 50-55%. ? 3. There is mildly increased left ventricular wall thickness. ? 4. The left ventricular diastolic function is grade I diastolic dysfunction. ? 5. Right ventricular systolic function is normal. ? 6. The aortic valve is probable trileaflet. ? 7. The noncoronary cusp is moderately calcified and has restricted leaflet motion. ? 8. There is mild aortic valve stenosis with a peak velocity of 244.24 cm/s, mean gradient of 11 mmHg, and aortic valve area of 1.49 cm2. Hemodynamically stable, no angina Awaiting transfer to [facility] for high-risk PCI. Continue ASA 81mg daily, Plavix 75mg daily, beta markus, high-intensity statin Will stop Heparin drip as he has been on it for almost a week now. Subjective Date/time seen: 01/26/22 13:17 Interval history: Reason For Visit: NSTEMI / ACS Interval history: Follow-up visit in this 76-year-old man with coronary disease presenting with ACS and found to have severe stenosis at the circumflex ostium some involvement in the distal left main and is waiting for transfer to higher level of care for higher risk PCI of this disease.? Patient remains asymptomatic and is has known no complaints has IV heparin running.? Still waiting for a bed at [facility] since middle of last week Date of service 01/25/22: Continues to await transfer to to [facility].? He remains asymptomatic and without complaint.? Remains on IV heparin Date of service 01/26/22: Doing well this morning. Does report occasional twinges of chest pain in the middle of the night. Still awaiting transfer. Review of Systems Review of Systems: 8-point ROS obtained. Negative, unless stated in HPI. Exam Const: General: comfortable and no acute distress HENMT: Mouth: Yes moist mucous membranes Eyes: General: appearance normal, both eyes and all related structures Sclera: sclerae normal Neck: Neck: supple Resp: Effort & Inspection: normal respiratory effort Auscultation: clear to auscultation bilaterally Cardio: Rate: regular rate Rhythm: regular rhythm Heart sounds: no murmurs Skin: General skin exam: normal color Neuro: Speech: normal speech Other: Normal cognition Extrem: General: normal to inspection Psych: Mental Status: mental status grossly normal Affect: normal affect Objective Data Vital Signs Vital Signs: Vital Signs - 24 hr 01/25/22 14:00 01/25/22 16:00 01/25/22 16:00 Temperature 36.2 C L Pulse Rate 58 L 59 L 56 L Respiratory Rate 18 Blood Pressure 147/46 H Pulse Oximetry 98 Oxygen Delivery 01/25/22 18:00 01/25/22 20:00 01/25/22 20:00 Temperature 36.5 C Pulse Rate 54 L 56 L 70 Respiratory Rate 18 Blood Pressure 140/50 L Pulse Oximetry 99 Oxygen Delivery 01/25/22 20:00 01/25/22 21:19 01/25/22 23:00 Temperature 36.2 C L Pulse Rate 70 54 L 59 L Respiratory Rate 18 20 Blood Pressure 130/59 L Pulse Oximetry 99 100 Oxygen Delivery Room Air 01/25/22 23:18 01/25/22 23:18 01/26/22 02:00 Temperature Pulse Rate 57 L 57 L 54 L Respiratory Rate 20 Blood Pressure Pulse Oximetry 100 Oxygen Delivery Room Air 01/26/22 04:00 01/26/22 04:00 01/26/22 04:00 Temperature 36.2 C L Pulse Rate 50 L 50 L 55 L Respiratory Rate 20 20 Blood Pressure 136/45 L Pulse Oximetry 100 99 Oxygen Delivery Room Air 1
[2022-01-26 16:33] LABS: Glucose Point of Care 210 mg/dl (65-105)
--- NOTE | 2022-01-26 17:28 | PM.IMPN ---
Progress Note: A&P Assessment and Plan (1) Non-ST elevation [place] (NSTEMI): Code(s): I21.4 - Non-ST elevation (NSTEMI) myocardial infarction Status: Acute Assessment and Plan: admit to IMU trend troponins continuous telemetry EKG reviewed cardiology consult patient got 1 dose of Lovenox in emergency room 01/26/2022 interval history 76-year-old male with history of PVD, COPD and diabetes presented with chest pain on 01/19 was seen by Cardiology and had a cardiac catheterization, it showed significant stenosis of left circumflex disease of the ostial proximal left circumflex, discussed with cardiology recommended patient needs to be transferred to [facility] for further critical care evaluation with credit portfolio manager for higher risk lesion, patient remains clinically stable he has no complaints of chest pain, spoke with software quality tester, will continue to monitor once a bed is available be transfer the patient. (2) GERD (gastroesophageal reflux disease): Qualifiers: Esophagitis presence: esophagitis presence not specified Qualified Code(s): K21.9 - Gastro-esophageal reflux disease without esophagitis Code(s): K21.9 - Gastro-esophageal reflux disease without esophagitis Status: Acute Assessment and Plan: continue PPI (3) PVD (peripheral vascular disease): Code(s): I73.9 - Peripheral vascular disease, unspecified Status: Acute Assessment and Plan: status post bypass continue aspirin (4) Obesity (BMI 30.0-34.9): Code(s): E66.9 - Obesity, unspecified Status: Acute Assessment and Plan: lifestyle and diet modifications (5) Chronic obstructive pulmonary disease, unspecified: Qualifiers: COPD type: unspecified COPD Qualified Code(s): J44.9 - Chronic obstructive pulmonary disease, unspecified Code(s): J44.9 - Chronic obstructive pulmonary disease, unspecified Status: Acute Assessment and Plan: not actively wheezing continue home meds (6) Essential hypertension: Code(s): I10 - Essential (primary) hypertension Status: Acute Assessment and Plan: continue home meds continue to monitor (7) Type 2 diabetes mellitus with hyperglycemia, without long-term current use of insulin: Code(s): E11.65 - Type 2 diabetes mellitus with hyperglycemia Status: Acute Assessment and Plan: holding metformin insulin sliding scale as needed Subjective Date/time seen: 01/26/22 17:28 01/26/2022 interval history 76-year-old male with history of PVD, COPD and diabetes presented with chest pain on 01/19 was seen by Cardiology and had a cardiac catheterization, it showed significant stenosis of left circumflex disease of the ostial proximal left circumflex, discussed with cardiology recommended patient needs to be transferred to [facility] for further critical care evaluation with credit portfolio manager for higher risk lesion, patient remains clinically stable he has no complaints of chest pain, spoke with software quality tester, will continue to monitor once a bed is available be transfer the patient. Review of Systems Constitutional: Constitutional: Denies chills, Denies fatigue, Denies fever(s), Denies lethargy, Denies malaise, Denies night sweats, Denies poor appetite and Denies weakness Exam Narrative: Patient is comfortable, NAD HEENT: eyes are clear and none icteric LUNGS:CTA HEART: RR S1S2 ABD: BS+, Soft and nontender Lower extremities: no edema SKIN: nonjaundiced Neuro: grossly intact. Objective Data Vital Signs Vital Signs: Vital Signs - 24 hr 01/25/22 18:00 01/25/22 20:00 01/25/22 20:00 Temperature 97.7 F Pulse Rate 54 L 56 L 70 Respiratory Rate 18 Blood Pressure 140/50 L Pulse Oximetry 99 Oxygen Delivery 01/25/22 20:00 01/25/22 21:19 01/25/22 23:00 Temperature 97.2 F L Pulse Rate 70 54 L 59 L Respirator
--- NOTE | 2022-01-26 18:22 | PM.TDS ---
Transfer Discharge Sum: Prov Provider Date of admission: 01/18/22 20:26 Primary care physician: Anuel Juarez DO Admitting clinician: Chevy Boyd MD Consults: 01/18/22 Consult to Physician Routine Comment: Consulting Provider: Barbara Fu Reason for consultation: NSTEMI Has provider been notified: Yes DS: Admitting Diagnosis Discharge Date 01/26/2022 Admitting Diagnosis chest pain DS: Discharge Diagnosis Discharge Diagnosis (1) Non-ST elevation [place] (NSTEMI): Code(s): I21.4 - Non-ST elevation (NSTEMI) myocardial infarction Status: Acute Assessment and Plan: admit to IMU trend troponins continuous telemetry EKG reviewed cardiology consult patient got 1 dose of Lovenox in emergency room 01/26/2022 interval history 76-year-old male with history of PVD, COPD and diabetes presented with chest pain on 01/19 was seen by Cardiology and had a cardiac catheterization, it showed significant stenosis of left circumflex disease of the ostial proximal left circumflex, discussed with cardiology recommended patient needs to be transferred to [facility] for further critical care evaluation with economics professor for higher risk lesion, patient remains clinically stable he has no complaints of chest pain, spoke with swamper, will continue to monitor once a bed is available be transfer the patient. (2) GERD (gastroesophageal reflux disease): Qualifiers: Esophagitis presence: esophagitis presence not specified Qualified Code(s): K21.9 - Gastro-esophageal reflux disease without esophagitis Code(s): K21.9 - Gastro-esophageal reflux disease without esophagitis Status: Acute Assessment and Plan: continue PPI (3) PVD (peripheral vascular disease): Code(s): I73.9 - Peripheral vascular disease, unspecified Status: Acute Assessment and Plan: status post bypass continue aspirin (4) Obesity (BMI 30.0-34.9): Code(s): E66.9 - Obesity, unspecified Status: Acute Assessment and Plan: lifestyle and diet modifications (5) Chronic obstructive pulmonary disease, unspecified: Qualifiers: COPD type: unspecified COPD Qualified Code(s): J44.9 - Chronic obstructive pulmonary disease, unspecified Code(s): J44.9 - Chronic obstructive pulmonary disease, unspecified Status: Acute Assessment and Plan: not actively wheezing continue home meds (6) Essential hypertension: Code(s): I10 - Essential (primary) hypertension Status: Acute Assessment and Plan: continue home meds continue to monitor (7) Type 2 diabetes mellitus with hyperglycemia, without long-term current use of insulin: Code(s): E11.65 - Type 2 diabetes mellitus with hyperglycemia Status: Acute Assessment and Plan: holding metformin insulin sliding scale as needed Transfer Discharge Sum: Med Medications Active and Home Medications: Home Medications aspirin 81 mg tablet,delayed release (Adult Low Dose Aspirin) 81 mg PO DAILY 06/12/19 [History Confirmed 01/18/22] cholecalciferol (vitamin D3) 50 mcg (2,000 unit) tablet 50 mcg PO DAILY 02/04/21 [History Confirmed 01/18/22] xbrplieehqn-wmyhcmknd-vyjb337-hyal 750 mg-100 mg-125 mg-1.65 mg tablet (Glucosamine Chondroit Complx Advan) 1 tablet PO BID 02/04/21 [History Confirmed 01/18/22] multivitamin 1 tablet PO DAILY 02/04/21 [History Confirmed 01/18/22] omega-3 fatty acids 1,000 mg PO BID 02/04/21 [History Confirmed 01/18/22] mecobalamin (vitamin B12) 1,000 mcg chewable tablet (B12 Active) 1,000 mcg PO DAILY 08/05/21 [History Confirmed 01/18/22] atorvastatin 20 mg tablet 20 mg PO DAILY #90 tabs 08/13/21 [Rx Confirmed 01/18/22] finasteride 5 mg tablet 5 mg PO DAILY #90 tabs 08/13/21 [Rx Confirmed 01/18/22] losartan 50 mg tablet 50 mg PO QAM #90 tabs 08/14/21 [Rx Confirmed 01/18/22] amlodipine 10 mg tablet 10 mg PO
[2022-01-26 20:02] LABS: Glucose Point of Care 220 mg/dl (65-105)
== END 2022-01-26 21:36 | disposition short-term general hospital (02) | DRG 282 ==
LOC: ANHED 16:49 → ANHIMU 22:37
PROVIDERS: Family Medicine; Internal Medicine; Internal Medicine Cardiovascular Disease; Admitting Provider Internal Medicine; Emergency Provider Emergency Medicine; PCP Internal Medicine; Visit Provider Family Medicine
PROC: 4A023N7 Measurement of Cardiac Sampling and Pressure, Left Heart, Percutaneous Approach (ICD-10-PCS; CPT 93452; principal; 2022-01-19 09:30)
DX: I21.4 Non-ST elevation (NSTEMI) myocardial infarction (principal); I25.10 Atherosclerotic heart disease of native coronary artery without angina pectoris; K21.9 Gastro-esophageal reflux disease without esophagitis; I73.9 Peripheral vascular disease, unspecified; E66.9 Obesity, unspecified; J44.9 Chronic obstructive pulmonary disease, unspecified; E11.65 Type 2 diabetes mellitus with hyperglycemia; N40.0 Benign prostatic hyperplasia without lower urinary tract symptoms; E78.5 Hyperlipidemia, unspecified; I10 Essential (primary) hypertension; I77.9 Disorder of arteries and arterioles, unspecified; Z20.822 Contact with and (suspected) exposure to COVID-19; Z79.82 Long term (current) use of aspirin; Z68.29 Body mass index [BMI] 29.0-29.9, adult; Z87.891 Personal history of nicotine dependence; Z98.890 Other specified postprocedural states
CPT/HCPCS: 36415; 71046; 71275; 80048; 80053; 80061; 82948; 83036; 83690; 83735; 84484; 85025; 85027; 85380; 85610; 85730; 93005; 93306; 93458; 99291; A9270; C1769; C1887; C1894; C8929; J1644; J1650; J1815; J2250; J3010; J7030; J7040; Q9957; Q9967; U0003; U0005

== ENCOUNTER 2022-03-12 20:58 | Emergency (ER) | payer OTHER, SELFPAY ==
[2022-03-12] VITALS (13 sets, daily range): BP systolic 110–135; BP diastolic 46–73; PULSE 70–86; RESP 15–20; TEMP 36.6; O2SAT 93–98
--- NOTE | ~2022-03-12 | XR_ITS ---
EXAMINATION: XR chest 2V DATE: 03/12/2022 22:09 INDICATION: Transient alteration of awareness TECHNIQUE: AP and lateral views of the chest are obtained. COMPARISON: 01/18/2022 FINDINGS: There are changes of interval coronary artery bypass grafting and dual lead pacemaker inser tion into the left chest wall. Cardiomegaly is noted. There are small pleural effusions. No pneumotho rax is identified. There are minimal airspace opacities of the left lung base. There are bridging ost eophytes at multiple levels in the spine, consistent with diffuse idiopathic skeletal hyperostosis (D MAYNOR). IMPRESSION: 1. Minimal left basilar airspace opacity, consistent with atelectasis versus pneumonia. 2. Small pleural effusions. 3. Changes of interval coronary artery bypass grafting and dual lead pacemaker insertion. Reviewed, dictated and finalized at location [facility] IMPRESSION: 1. Minimal left basilar airspace opacity, consistent with atelectasis versus pn eumonia. 2. Small pleural effusions. 3. Changes of interval coronary artery bypass grafting and dual lead pacemaker insertion.
--- NOTE | 2022-03-12 21:07 | ECG_ITS ---
Measurements Intervals [place] Rate: 82 P: 45 WI: 252 QRS: 11 QRSD: 101 T: 216 QT: 385 QTc: 451 Interpretive Statements SINUS RHYTHM WITH FIRST DEGREE AV BLOCK VENTRICULAR PREMATURE COMPLEXES LOW QRS VOLTAGE IN PRECORDIAL LEADS ANTEROSEPTAL INFARCT, AGE INDETERMINATE BORDERLINE ST-T WAVE ABNORMALITY- INF/LAT LEADS BASELINE ARTIFACT- I, II, V5-V6 ABNORMAL ECG COMPARED TO ECG 01/18/2022 19:34:23 MYOCARDIAL INFARCT FINDING NOW PRESENT Electronically Signed On 03-13-2022 7:53:17 [employer] by Cholo Lopez D.O.
[2022-03-12 21:17] LABS: Basophils Percent Auto 0.7 % (0.2-1.2); Eosinophils Absolute Auto 0.2 K/mm3 (0-0.3); Eosinophils Percent Auto 3.5 % (0-4.4); Hematocrit 36.1 % (42.0-52.0); Hemoglobin 11.5 g/dL (14.0-18.0); Immature Granulocyte Absolute 0.02 K/mm3 (0.00-0.031); Immature Granulocyte Percent A 0.3 % (0-0.5); Lymphocytes Absolute Auto 1.44 K/mm3 (0.9-3.2); Lymphocytes Percent Auto 25.1 % (18.3-44.2); Mean Corpuscular HGB Conc 31.9 g/dl (32-36); Mean Corpuscular Hemoglobin 29.8 pg (26-34); Mean Corpuscular Volume 93.5 fl (80-100); Mean Platelet Volume 10.1 fl (7.4-10.4); Monocytes Absolute Auto 0.6 K/mm3 (0.1-0.6); Monocytes Percent Auto 9.6 % (2.6-8.5); Neutrophils Absolute Auto 3.5 K/mm3 (1.3-6.7); Neutrophils Percent Auto 60.8 % (45.5-73.1); Platelet Count Result 240 k/mm3 (150-375); Red Blood Count 3.86 M/mm3 (4.6-6.20); Red Cell Distribution Width 17.2 % (11.5-14.5); White Blood Count 5.7 K/mm3 (4.5-10.0)
[2022-03-12 22:06] LABS: INR 1.5; Prothrombin Time 17.2 Seconds (11.1-14.7)
[2022-03-12 22:11] LABS: Alanine Aminotransferase 30 U/L (6-50); Albumin Level 3.8 g/dL (3.5-5.1); Alkaline Phosphatase 83 U/L (38-126); Anion Gap 11 mmol/L (8-16); Aspartate Amino Transferase 24 U/L (17-59); Bilirubin,Total 0.5 mg/dL (0.2-1.3); Blood Urea Nitrogen 29 mg/dL (9-20); Calcium 8.5 mg/dL (8.4-10.2); Carbon Dioxide 24 mmol/L (22-30); Chloride 103 mmol/L (98-107); Estimated CRCL calculation 41 ml/min; Estimated Glomerular Filt Rate 42; Glucose 162 mg/dL (65-110); Potassium 3.5 mmol/L (3.4-5.0); Sodium 138 mmol/L (137-145)
[2022-03-12 22:16] LABS: NT Pro B Type Natriuretic Pept 757 pg/mL (19.9-100)
[2022-03-12] MEDS: SODIUM CHLORIDE 0.9% IV 1,000 ML 999 ML IV CONT (22:28)
[2022-03-13 00:37] VITALS: BP 129/66; PULSE 70
[2022-03-13 00:38] VITALS: BP 129/65; PULSE 73
[2022-03-13 00:40] VITALS: BP 110/63; PULSE 76
--- NOTE | 2022-03-13 00:57 | ED.GENADULT ---
HPI - General Adult General Chief complaint: Syncope Stated complaint: dizziness, syncope History of Present Illness HPI narrative: Patient is a 76-year-old male who presents ER with dizziness. Denies any actual syncope but reports he came close. He was seen by his home health nurse this morning and was getting dizzy when he went from sitting to standing. They took his blood pressure and told him that if he got dizzy again he should come to the ER. He proceeded to just sit in his chair all day long after that. He reports that his home health nurse did discontinue some of his high blood pressure medicine and is coming back out to check on him tomorrow. He recently was hospitalized with a heart attack and underwent three-vessel CABG. He is having no chest pain or chest pressure. No racing heart. No dyspnea. No runny nose or sore throat or cough. He has been taking Lasix 40 mg twice daily. Related Data Home Medications Medication Instructions Recorded Confirmed cholecalciferol (vitamin D3) 50 50 mcg PO DAILY 02/04/21 03/03/22 mcg (2,000 unit) tablet mocbaksjvkv-zkockpjmz-tidq377-hyal 1 tablet PO BID 02/04/21 03/03/22 750 mg-100 mg-125 mg-1.65 mg tablet (Glucosamine Chondroit Complx Advan) multivitamin 1 tablet PO DAILY 02/04/21 03/03/22 pregabalin 75 mg capsule 75 mg PO DAILY 01/18/22 03/03/22 clopidogrel 75 mg tablet (Plavix) 75 mg PO DAILY 01/19/22 03/03/22 ipratropium 20 mcg-albuterol 100 1 puff inhalation QID 01/19/22 03/03/22 mcg/actuation mist for inhalation omega 8-zfm-eww-fish oil 1,200 mg 1 cap PO BID 01/19/22 03/03/22 (144 mg-216 mg) capsule (Fish Oil) vitamin E (dl, acetate) 180 mg 180 mg PO DAILY 01/19/22 03/03/22 (400 unit) capsule amiodarone 400 mg tablet 400 mg PO DAILY 03/03/22 03/03/22 amlodipine 10 mg tablet 10 mg PO DAILY 03/03/22 03/03/22 apixaban 5 mg tablet 5 mg PO BID 03/03/22 03/03/22 atorvastatin 20 mg tablet 20 mg PO DAILY 03/03/22 03/03/22 docusate sodium 100 mg capsule 100 mg PO .PRN PRN 03/03/22 03/03/22 (Colace) ferrous sulfate 325 mg (65 mg 325 mg PO BID 03/03/22 03/03/22 iron) tablet,delayed release furosemide 40 mg tablet 40 mg PO BID 03/03/22 03/03/22 methocarbamol 500 mg tablet 500 mg PO QHS 03/03/22 03/03/22 potassium chloride 20 mEq oral 20 meq PO BID 03/03/22 03/03/22 packet Allergies Allergy/AdvReac Type Severity Reaction Status Date / Time No Known Allergies Allergy Verified 03/12/22 21:16 Review of Systems Review of Systems: All systems reviewed & are unremarkable except as noted in HPI and below Constitutional: Constitutional: Denies chills, Denies fatigue and Denies fever(s) ENT: Denies nasal congestion and Denies sore throat Cardiovascular: Cardiovascular: Denies chest pain, Denies rapid heart rate and Denies radiating jaw, neck or arm pain Respiratory: Respiratory: Denies cough and Denies dyspnea Gastrointestinal: Gastrointestinal: Denies abdominal pain, Denies nausea and Denies vomiting Neurologic: Reports syncope (Near), Denies headache(s), Denies focal weakness and Denies numbness [facility] Past Medical History Medical History (Updated 03/13/22 @ 06:55 by Sterling Elder MD) Actinic keratitis Adenomatous colon polyp Benign prostatic hyperplasia with nocturia Chronic obstructive pulmonary disease, unspecified Diabetes type 2, controlled Essential hypertension GERD (gastroesophageal reflux disease) Non-ST elevation CT (NSTEMI) Pacemaker 2022 Type 2 diabetes mellitus with hyperglycemia, without long-term current use of insulin Surgical History Surgical History (Updated 03/03/22 @ 13:21 by Heather Ibarra) H/O carotid endarterectomy 2011 left side H/O cataract removal with insertion of prosthetic lens (~2019) both eyes History of carpal tunnel release (~2015) Rt side History of coronary artery bypass graft x 3 (~02/02/22) History of testicular surgery (~1999) valve went bad and it was filling up with fluid so they fixed it
[2022-03-13 01:13] VITALS: BP 130/98; PULSE 76; RESP 18; O2SAT 98
== END 2022-03-13 01:15 | disposition home or self-care (01) ==
PROVIDERS: Emergency Provider Emergency Medicine; PCP Family Medicine Adolescent Medicine
DX: E86.0 Dehydration (principal); R42 Dizziness and giddiness; J44.9 Chronic obstructive pulmonary disease, unspecified; E11.9 Type 2 diabetes mellitus without complications; I10 Essential (primary) hypertension; I25.2 Old myocardial infarction; K21.9 Gastro-esophageal reflux disease without esophagitis; N40.1 Benign prostatic hyperplasia with lower urinary tract symptoms; R35.1 Nocturia; Z95.0 Presence of cardiac pacemaker; Z98.42 Cataract extraction status, left eye; Z98.41 Cataract extraction status, right eye; Z96.1 Presence of intraocular lens; Z95.1 Presence of aortocoronary bypass graft; Z85.828 Personal history of other malignant neoplasm of skin; Z87.891 Personal history of nicotine dependence; Z98.61 Coronary angioplasty status; Z79.84 Long term (current) use of oral hypoglycemic drugs; Z79.01 Long term (current) use of anticoagulants; I44.0 Atrioventricular block, first degree; I49.3 Ventricular premature depolarization; R94.31 Abnormal electrocardiogram [ECG] [EKG]
CPT/HCPCS: 36415; 71046; 80053; 83880; 85025; 85610; 85730; 93005; 96360; 99284; J7030

== ENCOUNTER 2022-06-01 11:41 | Outpatient (CLI) | payer OTHER, SELFPAY ==
--- NOTE | ~2022-06-01 | XR_ITS ---
Clinical Indication: Dyspnea on exertion PA and lateral views of the chest: Comparison: 03/12/2022 Findings: There is worsening bibasilar interstitial prominence and minimal haziness. Small bilateral pleural effusions are present.. Cardiomediastinal silhouette is stable, with pacemaker device. Bones and soft tissues are unremarkable. Impression: Mild bibasilar pulmonary edema with small bilateral pleural effusions. Pacemaker device. Reviewed, dictated and finalized at location . Impression: Mild bibasilar pulmonary edema with small bilateral pleural effusions. Pacemaker device.
== END 2022-06-01 11:42 | disposition home or self-care (01) ==
PROVIDERS: PCP Family Medicine Adolescent Medicine; Visit Provider Nurse Practitioner Adult Health
DX: R06.09 Other forms of dyspnea (principal); J81.1 Chronic pulmonary edema; J90 Pleural effusion, not elsewhere classified; Z95.0 Presence of cardiac pacemaker
CPT/HCPCS: 71046

== ENCOUNTER 2022-06-05 10:42 | Inpatient (IN) | payer OTHER, SELFPAY ==
[2022-06-05] VITALS (15 sets, daily range): BP systolic 103–145; BP diastolic 58–95; PULSE 80–88; RESP 17–21; TEMP 36.2–36.6; O2SAT 90–99; BMI 29.7
--- NOTE | ~2022-06-05 | XR_ITS ---
EXAMINATION: XR chest 1V portable DATE: 06/08/2022 12:51 INDICATION: Shortness of breath. TECHNIQUE: A single frontal view of the chest was obtained. COMPARISON: Chest 2 views 06/05/2022, chest CT 01/18/2022 FINDINGS: There are lucencies in the lungs, consistent with emphysema. There are airspace opacities i n the mid and lower lung zones. No pleural effusion or pneumothorax. The heart size is normal. There are changes of median sternotomy. There is a left chest wall pacer with leads in the right atrium and right ventricle. IMPRESSION: 1. Airspace opacities in the mid and lower lung zones with interval improvement, consistent with atel ectasis versus pneumonia. 2. Emphysema. Reviewed, dictated and finalized at location A. IMPRESSION: 1. Airspace opacities in the mid and lower lung zones with interval improvement , consistent with atelectasis versus pneumonia. 2. Emphysema.
--- NOTE | ~2022-06-05 | XR_ITS ---
EXAMINATION: XR chest 2V DATE: 06/05/2022 11:40 INDICATION: Chest pain and shortness of breath, recent bypass surgery TECHNIQUE: AP and lateral views of the chest are obtained. COMPARISON: 06/02/2019 FINDINGS: Cardiomegaly is noted. There are interstitial opacities of the mid and lower lung zones wit h interval increase. Small pleural effusions are present. There is no pneumothorax. Median sternotomy wires and mediastinal surgical clips are seen, consistent with coronary artery bypass grafting. Ther e is moderate thoracic spondylosis. A dual-lead cardiac pacemaker of the left chest wall ends with le ads in expected locations. IMPRESSION: 1. Cardiomegaly with worsening pulmonary edema. 2. Small pleural effusions. Reviewed, dictated and finalized at location A.
--- NOTE | ~2022-06-05 | US_ITS ---
EXAMINATION: US venous doppler [facility] DATE: 06/06/2022 09:04 INDICATION: Bilateral lower limb swelling TECHNIQUE: Renteria scale images without and with compression and Doppler images of the bilateral lower e xtremity veins were obtained. COMPARISON: None FINDINGS: The right common femoral vein, profunda femoral vein, femoral vein, popliteal vein, peroneal trunk, p osterior tibial veins, and greater saphenous vein are patent. The left common femoral vein, profunda femoral vein, femoral vein, popliteal vein, peroneal trunk, po sterior tibial veins, and greater saphenous vein are patent. IMPRESSION: 1. Patent bilateral lower extremity veins. No evidence of deep venous thrombosis. Reviewed, dictated and finalized at location A. IMPRESSION: 1. Patent bilateral lower extremity veins. No evidence of deep venous thrombosi s.
--- NOTE | 2022-06-05 10:45 | ECG_ITS ---
Measurements Intervals [place] Rate: 84 P: NC: 0 QRS: 266 QRSD: 163 T: 78 QT: 432 QTc: 512 Interpretive Statements ELECTRONIC VENTRICULAR PACEMAKER SINUS RHYTHM WITH ATRIAL SENSING AND VENTRICULAR PACING ABNORMAL RHYTHM ECG COMPARED TO ECG 03/12/2022 21:06:50 VENTRICULAR RHYTHM IS NOW PACED Electronically Signed On 06-06-2022 7:37:56 CDT by Fabien Robertson M.D.
--- NOTE | 2022-06-05 11:00 | ED.SOB ---
HPI - SOB/Dyspnea General Chief Complaint: Shortness of Breath/Dyspnea <YESENIA Turner Last Filed: 06/05/22 17:24> Stated Complaint: short of breath, CP <YESENIA Turner Last Filed: 06/05/22 17:24> Time Seen by Provider: 06/05/22 10:57 <YESENIA Turner Last Filed: 06/05/22 17:24> Source: patient <YESENIA Turner Last Filed: 06/05/22 17:24> Mode of arrival: ambulatory <YESENIA Turner Last Filed: 06/05/22 17:24> Limitations: no limitations <YESENIA Turner Last Filed: 06/05/22 17:24> History of Present Illness HPI Narrative: Patient is a 76 y/o male, with past medical history of COPD, DM, pacemaker, CAD status post 3-vessel CABG in February 2022, PVD s/p RLE stenting, A-flutter s/p cardioversion 06/02/22 on Amiodarone/Eliquis, who presents to the ED with c/o SOB. Patient reports having intermittent, progressively worsening shortness of breath, worse with exertion/walking/talking since February. He states even walking 5 feet, he will become short of breath. Patient has home O2 he can use as needed. He states he typically uses 3L at night, but has not been using it much throughout the day, only at times. He has had intermittent L sided CP associated with the SOB and also aggravated with exertion. He further reports a cough over the last couple of days and intermittent lower extremity swelling. He saw his red leader, Dr. [place], on Tuesday and was set up for an echocardiogram in June. Patient denies any fever, lower extremity pain, abdominal pain, nausea, vomiting. <YESENIA Turner Last Filed: 06/05/22 17:24> Related Data Home Medications: Home Medications Medication Instructions Recorded Confirmed cholecalciferol (vitamin D3) 50 50 mcg PO DAILY 02/04/21 06/05/22 mcg (2,000 unit) tablet vagiuqeszvf-qdqkvbqss-gcwg350-hyal 1 tablet PO BID 02/04/21 06/05/22 750 mg-100 mg-125 mg-1.65 mg tablet (Glucosamine Chondroit Complx Advan) multivitamin 1 tablet PO DAILY 02/04/21 06/05/22 clopidogrel 75 mg tablet (Plavix) 75 mg PO DAILY 01/19/22 06/05/22 ipratropium 20 mcg-albuterol 100 1 puff inhalation QID 01/19/22 06/05/22 mcg/actuation mist for inhalation omega 4-ymd-vqe-fish oil 1,200 mg 1 cap PO BID 01/19/22 06/05/22 (144 mg-216 mg) capsule (Fish Oil) apixaban 5 mg tablet 5 mg PO BID 03/03/22 06/05/22 atorvastatin 20 mg tablet 20 mg PO HS 06/05/22 06/05/22 cyanocobalamin (vitamin B-12) 1,000 mcg PO DAILY 06/05/22 06/05/22 1,000 mcg tablet tiotropium bromide 2.5 1 inh inhalation QID 06/05/22 06/05/22 mcg/actuation mist for inhalation vitamin E 200 unit capsule 400 unit PO DAILY 06/05/22 06/05/22 <YESENIA Turner Last Filed: 06/05/22 17:24> Allergies/Adverse Reactions: Allergies Allergy/AdvReac Type Severity Reaction Status Date / Time No Known Allergies Allergy Verified 03/12/22 21:16 <YESENIA Turner Last Filed: 06/05/22 17:24> Review of Systems Review of Systems: CONSTITUTIONAL: Denies fever, chills, or sweats. CARDIOVASCULAR: See HPI. RESPIRATORY: See HPI. GASTROINTESTINAL: Denies abdominal pain, nausea, vomiting, or diarrhea. GENITOURINARY: Denies dysuria or hematuria. SKIN: Denies rash or itching. MUSCULOSKELETAL: See HPI. NEUROLOGIC: Denies headache, numbness, or weakness. <YESENIA Turner Last Filed: 06/05/22 17:24> All systems reviewed & are unremarkable except as noted in HPI and below <YESENIA Turner Last Filed: 06/05/22 17:24> [facility] Past Medical History Medical History: Medical History Actinic keratitis Adenomatous colon polyp Benign prostatic hyperplasia with nocturia Chronic obstructive pulmonary disease, unspecified Diabetes type 2, controlled Essential hypertension GERD (gastroesophageal reflux disease) Non-ST elevation [place] (NSTEMI
[2022-06-05 11:19] LABS: Basophils Percent Auto 0.3 % (0.2-1.2); Eosinophils Absolute Auto 0.2 K/mm3 (0-0.3); Hematocrit 33.8 % (42.0-52.0); Hemoglobin 10.5 g/dL (14.0-18.0); Immature Granulocyte Absolute 0.02 K/mm3 (0.00-0.031); Immature Granulocyte Percent A 0.3 % (0-0.5); Lymphocytes Absolute Auto 1.54 K/mm3 (0.9-3.2); Lymphocytes Percent Auto 26.8 % (18.3-44.2); Mean Corpuscular HGB Conc 31.1 g/dl (32-36); Mean Corpuscular Hemoglobin 28.2 pg (26-34); Mean Corpuscular Volume 90.6 fl (80-100); Mean Platelet Volume 9.9 fl (7.4-10.4); Monocytes Absolute Auto 0.6 K/mm3 (0.1-0.6); Monocytes Percent Auto 9.6 % (2.6-8.5); Neutrophils Absolute Auto 3.5 K/mm3 (1.3-6.7); Platelet Count Result 222 k/mm3 (150-375); Red Blood Count 3.73 M/mm3 (4.6-6.20); Red Cell Distribution Width 16.4 % (11.5-14.5); White Blood Count 5.8 K/mm3 (4.5-10.0)
[2022-06-05 11:32] LABS: INR 1.4; Prothrombin Time 16.7 Seconds (11.1-14.7)
[2022-06-05 11:33] LABS: Partial Thromboplastin Time 35.7 SECONDS (22.3-36.8)
[2022-06-05 11:43] LABS: Troponin I < 0.012 ng/mL (0.000-0.034)
[2022-06-05 11:50] LABS: Alanine Aminotransferase 28 U/L (6-50); Albumin Level 4.2 g/dL (3.5-5.1); Alkaline Phosphatase 76 U/L (38-126); Anion Gap 8 mmol/L (8-16); Aspartate Amino Transferase 28 U/L (17-59); Blood Urea Nitrogen 16 mg/dL (9-20); Calcium 8.4 mg/dL (8.4-10.2); Carbon Dioxide 26 mmol/L (22-30); Chloride 104 mmol/L (98-107); Estimated CRCL calculation 53 ml/min; Estimated Glomerular Filt Rate 59; Glucose 141 mg/dL (65-110); Lipase 45 U/L (23-300); Potassium 3.9 mmol/L (3.4-5.0); Sodium 138 mmol/L (137-145)
[2022-06-05 12:16] LABS: Bilirubin,Total 0.7 mg/dL (0.2-1.3)
[2022-06-05] MEDS: IPRATROPIUM BR 0.02% INH SOLN 0.5 MG/2.5 ML VIAL 1.5 MG INHALATION (12:28)
[2022-06-05] MEDS: LEVALBUTEROL NEB 1.25 MG/3 ML 2.5 MG INHALATION (12:28)
[2022-06-05 12:41] LABS: Influenza A QL RT-PCR Negative (Negative); Influenza B QL RT-PCR Negative (Negative); SARS-CoV-2 RNA PCR Negative (Negative)
[2022-06-05 12:54] LABS: NT Pro B Type Natriuretic Pept 2320 pg/mL (19.9-100)
[2022-06-05] MEDS: FUROSEMIDE INJ 40 MG/4 ML VIAL IV PUSH ×2 (13:17→20:03)
[2022-06-05 14:45] LABS: Troponin I < 0.012 ng/mL (0.000-0.034)
--- NOTE | 2022-06-05 15:00 | PM.IMHP ---
H&P: HPI History of Present Illness Date/Time: 06/05/22 15:00 Chief Complaint: Shortness of breath. Narrative: This is a very pleasant 76-year-old male with coronary artery disease status post 3 vessel bypass in January 2022, paroxysmal atrial fibrillation/flutter status post cardioversion on 06/03/2022 on chronic anticoagulation, symptomatic bradycardia status post permanent pacemaker insertion January 2022, peripheral vascular disease status post lower extremity stents, type 2 diabetes mellitus, diastolic dysfunction, hypertension, benign prostatic hyperplasia, and GERD who presented to the emergency department via private vehicle from home for evaluation of shortness of breath. Patient provides the following history. Since his bypass he has been participating in cardiac rehab and has been doing okay however over the last week or so he has become increasingly dyspneic on lesser and lesser exertion. He was found to be in atrial flutter and was cardioverted on 06/03/2022 at [facility]. It was thought that his shortness of breath was likely related to the atrial flutter however he has not felt better since being back in a normal rhythm and fact he feels worse. He feels tired and short of breath with minimal exertion. He has oxygen at home that he uses at nighttime but has been using it throughout the day due to being short of breath. Additionally he complains of intermittent left anterior chest pain, just below his left breast, which he describes as a muscle strain. This is apparently similar to that he was experiencing prior to his bypass. He denies fever, chills, sweats, productive cough, pleuritic pain, sensations of racing heart, palpitations, syncope, near syncope, nausea, vomiting, and sweats. His vital signs were stable on arrival to the ED. Troponin has been negative x2 and his EKG does not demonstrate any acute ST segment elevation or depression. ProBNP is almost 3 times what it was 3 months ago and chest x-ray shows worsening pulmonary edema and small pleural effusions. In the ED he was given furosemide 40 mg IV x1 and a nebulizer treatment. He is being admitted in this setting for treatment of CHF exacerbation. It should be noted that the patient was on furosemide previously but he was taken off of that ?because they said I was getting dehydrated.? Review of Systems Review of Systems: Twelve systems were reviewed and are negative except for as per HPI. [facility] Past Medical History Medical History (Updated 06/05/22 @ 21:13 by Jasmyn Shaw PA-C) Actinic keratitis Adenomatous colon polyp Arthritis Benign prostatic hyperplasia with nocturia Chronic obstructive pulmonary disease, unspecified Coronary artery disease Essential hypertension Gastroesophageal reflux disease History of kidney stones Non-ST elevation [place] (NSTEMI) Obstructive sleep apnea Intolerant to CPAP. Paroxysmal atrial fibrillation Paroxysmal atrial flutter Peripheral vascular disease Symptomatic bradycardia (01/2022) Status post permanent pacemaker insertion. Type 2 diabetes mellitus Surgical History Surgical History (Updated 06/05/22 @ 21:10 by Jasmyn Shaw PA-C) History of angioplasty (2021) History of cardiac catheterization History of carpal tunnel release (2015) History of cataract extraction with lens replacement (2019) History of colonoscopy (10/2021) History of coronary artery bypass graft x 3 (02/02/22) History of hydrocelectomy (01/2004) History of left-sided carotid endarterectomy (2011) History of permanent cardiac pacemaker placement (02/12/22) History of toe surgery History of vascular surgery Bilateral lower extremity stents. Status post surgical removal of malignant neoplasm of skin (2020) Neck. Family History Family History Mother Patient's mother is endometrial cancer? Sibling Patient's brother is Father Acute my
--- NOTE | 2022-06-05 15:04 | PC.NURSE ---
Patient's diner tray ordered at this time.
--- NOTE | 2022-06-05 16:12 | PC.NURSE ---
This patient, Peter Canales, was admitted to IMU Room 210-01. Patient/family oriented to hospital policies and general routines including ID bracelet, bed and alarms, visiting hours, pain management, procedures, bathroom and other care routines, personal items, smoking policy, room service/diet, and visiting hours. Information on how to activate the Rapid Response Team has been discussed. Patient/Family are encouraged to report perceived risks to care and to ask questions if they do not understand what they are told or what they should do.
[2022-06-05 18:08] LABS: Troponin I < 0.012 ng/mL (0.000-0.034)
[2022-06-05] MEDS: ATORVASTATIN 20 MG TABLET PO (22:16)
[2022-06-05] MEDS: APIXABAN 5 MG TABLET PO (22:16)
[2022-06-06] VITALS (15 sets, daily range): BP systolic 96–129; BP diastolic 54–83; PULSE 80–89; RESP 16–22; TEMP 36–36.3; O2SAT 94–100
[2022-06-06 03:55] LABS: Hematocrit 34.4 % (42.0-52.0); Hemoglobin 10.7 g/dL (14.0-18.0); Mean Corpuscular HGB Conc 31.1 g/dl (32-36); Mean Corpuscular Hemoglobin 27.6 pg (26-34); Mean Corpuscular Volume 88.7 fl (80-100); Mean Platelet Volume 9.3 fl (7.4-10.4); Platelet Count Result 220 k/mm3 (150-375); Red Blood Count 3.88 M/mm3 (4.6-6.20); Red Cell Distribution Width 16.4 % (11.5-14.5); White Blood Count 6.3 K/mm3 (4.5-10.0)
[2022-06-06 04:15] LABS: Hemoglobin A1C 6.5 % (<5.7)
[2022-06-06 04:20] LABS: Anion Gap 8 mmol/L (8-16); Blood Urea Nitrogen 18 mg/dL (9-20); Calcium 8.4 mg/dL (8.4-10.2); Carbon Dioxide 29 mmol/L (22-30); Chloride 100 mmol/L (98-107); Estimated CRCL calculation 50 ml/min; Estimated Glomerular Filt Rate 54; Glucose 106 mg/dL (65-110); Magnesium 1.9 mg/dL (1.6-2.3); Potassium 3.9 mmol/L (3.4-5.0); Sodium 137 mmol/L (137-145)
[2022-06-06 08:23] LABS: Glucose Point of Care 125 mg/dl (65-105)
[2022-06-06] MEDS: UMECLIDINIUM BROMIDE 62.5 MCG ELLIPTA 1 PUFF INHALATION (09:23)
[2022-06-06] MEDS: PANTOPRAZOLE 40 MG TABLET PO ×2 (10:09→18:37)
[2022-06-06] MEDS: metFORMIN HCL 500 MG TABLET PO ×2 (10:09→18:37)
[2022-06-06] MEDS: APIXABAN 5 MG TABLET PO ×2 (10:09→20:44)
[2022-06-06] MEDS: CLOPIDOGREL BISULFATE 75 MG TABLET PO (10:09)
[2022-06-06] MEDS: CYANOCOBALAMIN 1,000 MCG TABLET 1000 MCG PO (10:09)
[2022-06-06] MEDS: FINASTERIDE 5 MG TABLET PO (10:09)
[2022-06-06] MEDS: CHOLECALCIFEROL 1,000 UNITS TABLET 2000 UNITS PO (10:09)
[2022-06-06] MEDS: MULTIVITAMINS THERAPEUTIC TAB (*BKC) 1 TABLET PO (10:10)
[2022-06-06] MEDS: POTASSIUM CHLORIDE 20 MEQ TABLET.ER 40 MEQ PO (10:10)
[2022-06-06] MEDS: FUROSEMIDE INJ 40 MG/4 ML VIAL IV PUSH ×2 (10:10→20:44)
[2022-06-06] MEDS: TAMSULOSIN HCL 0.4 MG CAPSULE PO (10:10)
[2022-06-06] MEDS: OMEGA 3 POLYUNSAT FATTY ACIDS 1 GM CAP PO ×2 (10:10→18:37)
[2022-06-06] MEDS: VITAMIN E 400 UNIT CAPSULE PO (10:11)
--- NOTE | 2022-06-06 10:51 | PM.CNCAR ---
Assessment and Plan Assessment and plan (1) Congestive heart failure: Code(s): I50.9 - Heart failure, unspecified Status: Acute (2) Dyspnea on exertion: Code(s): R06.09 - Other forms of dyspnea Status: Acute Plan This is a 76-year-old man known to have significant coronary disease as described above underwent surgical revascularization about 4 months ago because of left main involvement. Far as we know he had fairly good LV systolic function and no significant valvular dysfunction at the time of his surgery. He has had problematic postop atrial fib and also Ray arrhythmias. He is currently in sinus rhythm with atrial sensing and ventricular pacing. Antiarrhythmic therapy has been stopped. Despite all this he is having progressive shortness of breath for the last month or 2 and does have some pulmonary edema on chest x-ray. He is responding symptomatic Dena to furosemide. For now we will continue this and echocardiogram will be done tomorrow for further assessment of the substrate for his CHF decompensation. Fabien Robertson MD [facility] History of Present Illness History of Present Illness Consult date/time: 06/06/22 10:51 Reason For Visit: Acute CHF, SOB/CP Narrative: This is a very pleasant 76-year-old man with coronary artery disease and recent coronary bypass operation. I am seeing him at the request of the hospitalist for assistance with the management and evaluation of congestive heart failure. The patient he is known to my partner, Dr. [place]. Apparently he was found to have coronary artery disease when he presented to this hospital with acute coronary syndrome back in January of 2022. He was treated medically and brought to the cardiac catheterization lab and found to have severe coronary artery disease including involvement of his left main coronary artery. He was transferred to [facility] where he underwent surgical revascularization on 02/02/2022. He received an BAKARI graft to the LAD, a saphenous vein graft to his obtuse marginal and a radial artery graft to his LPDA. He had a bit of a prolonged hospitalization receiving titanium plates with steel wires to the sternum due to previous sternal fractures and also he had evidence and problems with postoperative atrial fibrillation. He was treated with amiodarone and then in the hospital he developed symptomatic bradycardia with symptomatic heart rates in the 40s despite holding medications. For that reason on 02/12/2022 he received a dual-chamber [employer] pacemaker as well. The patient was ultimately discharged on February 17 of this year and was doing reasonably well. He since hospital discharge has been seen several times in our office and he has been reporting symptoms of shortness of breath at a been slowly worsening. He has not been having any orthopnea PND or edema. He was taken off of amiodarone and metoprolol by his cardiac surgeon who when he was reporting symptoms of dizziness and orthostatic hypotension. Eventually he was also taken off of losartan and furosemide that were also being previously prescribed. He has been seen twice this month in our office on the of this month and again on just Tuesday of last week he was reporting some symptoms of worsening shortness of breath. Couple of weeks ago was noticed that he was in atrial flutter of unknown chronicity. He was DC cardioverted to sinus rhythm as an outpatient about a week ago. Despite this shortness of breath has continued. He is not reporting orthopnea or lower extremity edema he is not having any chest pain. He came to the emergency room yesterday with worsening of this shortness of breath his chest x-ray does show moderate pulmonary edema and he was placed on intravenous furosemide. He is feeling better this morning but still shortness of breath with modest activity he is being supplied with home oxygen as well. After the office visit I on Tuesday of last week outpat
[2022-06-06 11:30] LABS: Free T4 Free Thyroxine Reflex 0.74 ng/dL (0.78-2.19)
--- NOTE | 2022-06-06 12:16 | PM.IMPN ---
Progress Note: A&P Assessment and Plan (1) Acute on chronic diastolic heart failure: Code(s): I50.33 - Acute on chronic diastolic (congestive) heart failure Status: Acute Assessment and Plan: Continue diuretic. Appreciate Cardiology input. Echo pending (2) Paroxysmal atrial flutter: Code(s): I48.92 - Unspecified atrial flutter Status: Acute Assessment and Plan: Status post cardioversion on 06/03/2021. (3) Coronary artery disease: Code(s): I25.10 - Atherosclerotic heart disease of [place] coronary artery without angina pectoris Status: Acute Assessment and Plan: Status post 3 vessel bypass in January 2020. (4) Peripheral vascular disease: Code(s): I73.9 - Peripheral vascular disease, unspecified Status: Acute Assessment and Plan: Status post bilateral lower extremity stents in left carotid endarterectomy years ago. No acute issues. (5) Type 2 diabetes mellitus: Code(s): E11.9 - Type 2 diabetes mellitus without complications Status: Acute Assessment and Plan: Initiate sliding scale insulin, Accu-Cheks, and hypoglycemic protocol. Check hemoglobin A1c. (6) Obstructive sleep apnea: Code(s): G47.33 - Obstructive sleep apnea (adult) (pediatric) Status: Acute Assessment and Plan: He is intolerant to CPAP. (7) Benign prostatic hyperplasia with nocturia: Code(s): N40.1 - Benign prostatic hyperplasia with lower urinary tract symptoms; R35.1 - Nocturia Status: Acute Assessment and Plan: Continue finasteride and tamsulosin. Bladder scan p.r.n. as he has occasional sensations of inability to empty bladder. Subjective Date/time seen: 06/06/22 12:16 Breathing better. Exam Narrative: General: A well-developed, nontoxic appearing male sitting up in bed in no acute distress. Weight: 105.1 kg. BMI: 29.7. HEENT: Wearing hearing aids. PERRL, EOMI. Sclera anicteric. Oral mucosa moist. Neck: Supple. No significant jugular venous distension. Respiratory: Respirations are nonlabored and he is speaking in full sentences. Fine crackles at the bases. Cardiovascular: Regular rate and rhythm with S1-S2. Gastrointestinal: Abdomen is soft, nontender, and nondistended with positive bowel sounds. Skin: Warm and dry. Extremities: No cyanosis or clubbing. 2+ gail ankle edema bilaterally, right greater than left, softening towards the knees. Posterior tibialis pulses will but diminished bilaterally. Neurological: Alert. Cranial nerves 2-12 are grossly intact. No gross focal deficits to casual conversation. Psychiatric: Pleasant and cooperative with normal mood and affect. Judgment and insight intact. Objective Data Vital Signs Vital Signs: Vital Signs - 24 hr 06/05/22 12:53 06/05/22 15:03 06/05/22 15:55 Temperature Pulse Rate 81 82 80 Respiratory Rate 18 17 19 Blood Pressure 122/61 130/69 103/66 Pulse Oximetry 99 98 97 Oxygen Delivery Oxygen Flow Rate 06/05/22 16:05 06/05/22 17:15 06/05/22 16:00 Temperature 97.2 F L Pulse Rate 87 82 Respiratory Rate 18 Blood Pressure 139/73 Pulse Oximetry 97 96 Oxygen Delivery Nasal Cannula Oxygen Flow Rate 3 06/05/22 18:04 06/05/22 19:54 06/05/22 23:03 Temperature 97.3 F L 98 F Pulse Rate 85 82 83 Respiratory Rate 20 18 Blood Pressure 129/95 H 116/58 L Pulse Oximetry 98 99 Oxygen Delivery Oxygen Flow Rate 06/05/22 20:00 06/05/22 20:00 06/05/22 22:00 Temperature Pulse Rate 81 88 Respiratory Rate Blood Pressure Pulse Oximetry 98 Oxygen Delivery Nasal Cannula Oxygen Flow Rate 3 06/06/22 00:00 06/06/22 00:00 06/06/22 02:00 Temperature Pulse Rate 81 80 Respiratory Rate Blood Pressure Pulse Oximetry 98 Oxygen Delivery Nasal Cannula Oxygen Flow Rate 3 06/06/22 03:44 06/06/22 04:00 06/06/22 04:00 Temperature 97 F L Pulse Rate 80 80 Respira
[2022-06-06 12:27] LABS: Glucose Point of Care 103 mg/dl (65-105)
[2022-06-06 16:47] LABS: Glucose Point of Care 151 mg/dl (65-105)
[2022-06-06 20:12] LABS: Glucose Point of Care 157 mg/dl (65-105)
[2022-06-06] MEDS: ATORVASTATIN 20 MG TABLET PO (20:44)
[2022-06-07] VITALS (14 sets, daily range): BP systolic 115–149; BP diastolic 64–90; PULSE 80–91; RESP 16–20; TEMP 36.1–36.8; O2SAT 94–99
[2022-06-07 08:01] LABS: Glucose Point of Care 145 mg/dl (65-105)
[2022-06-07] MEDS: UMECLIDINIUM BROMIDE 62.5 MCG ELLIPTA 1 PUFF INHALATION (08:49)
[2022-06-07] MEDS: MULTIVITAMINS THERAPEUTIC TAB (*BKC) 1 TABLET PO (09:36)
[2022-06-07] MEDS: CHOLECALCIFEROL 1,000 UNITS TABLET 2000 UNITS PO (09:36)
[2022-06-07] MEDS: CYANOCOBALAMIN 1,000 MCG TABLET 1000 MCG PO (09:36)
[2022-06-07] MEDS: PANTOPRAZOLE 40 MG TABLET PO ×2 (09:36→18:09)
[2022-06-07] MEDS: FINASTERIDE 5 MG TABLET PO (09:36)
[2022-06-07] MEDS: OMEGA 3 POLYUNSAT FATTY ACIDS 1 GM CAP PO ×2 (09:36→18:09)
[2022-06-07] MEDS: APIXABAN 5 MG TABLET PO ×2 (09:36→20:14)
[2022-06-07] MEDS: POTASSIUM CHLORIDE 20 MEQ TABLET.ER 40 MEQ PO (09:36)
[2022-06-07] MEDS: TAMSULOSIN HCL 0.4 MG CAPSULE PO (09:36)
[2022-06-07] MEDS: CLOPIDOGREL BISULFATE 75 MG TABLET PO (09:36)
[2022-06-07] MEDS: metFORMIN HCL 500 MG TABLET PO ×2 (09:36→18:09)
[2022-06-07] MEDS: FUROSEMIDE INJ 40 MG/4 ML VIAL IV PUSH ×2 (09:37→20:14)
[2022-06-07] MEDS: VITAMIN E 400 UNIT CAPSULE PO (09:37)
[2022-06-07] MEDS: PERFLUTREN LIPID MICROSPHERES 1.5 ML VIAL DILUTED TO 10 ML TOTAL VOLUME IV PUSH (09:55)
--- NOTE | 2022-06-07 09:56 | IVDEFINITY ---
Prior to administration of IV Definity the patient was educated on the risks and benefits of the imaging enhancing agent including potential adverse side effects. The patient verbalized understanding. Allergies were verified. No exclusion criteria were identified and at least one of the following inclusion criteria were met: 1) physician request, 2) patient technically difficult to image (per the [place] [employer] Echocardi[employer] guidelines of two or more segments not discernable within the apical view), or 3) questionable left ventricular function. ?
--- NOTE | 2022-06-07 09:56 | IVDEFINITY ---
Prior to administration of IV Definity the patient was educated on the risks and benefits of the imaging enhancing agent including potential adverse side effects. The patient verbalized understanding. Allergies were verified. No exclusion criteria were identified and at least one of the following inclusion criteria were met: 1) physician request, 2) patient technically difficult to image (per the [place] [employer] Echocardiography guidelines of two or more segments not discernable within the apical view), or 3) questionable left ventricular function. ?
--- NOTE | 2022-06-07 11:44 | PM.IMPN ---
Progress Note: A&P Assessment and Plan (1) Acute on chronic diastolic heart failure: Code(s): I50.33 - Acute on chronic diastolic (congestive) heart failure Status: Acute Assessment and Plan: Continue diuretic. Appreciate Cardiology input. Echo pending Still having some mild shortness of breath and diuresing well. Will continue diuretic today. (2) Paroxysmal atrial flutter: Code(s): I48.92 - Unspecified atrial flutter Status: Acute Assessment and Plan: Status post cardioversion on 06/03/2021. (3) Coronary artery disease: Code(s): I25.10 - Atherosclerotic heart disease of [place] coronary artery without angina pectoris Status: Acute Assessment and Plan: Status post 3 vessel bypass in January 2020. (4) Peripheral vascular disease: Code(s): I73.9 - Peripheral vascular disease, unspecified Status: Acute Assessment and Plan: Status post bilateral lower extremity stents in left carotid endarterectomy years ago. No acute issues. (5) Type 2 diabetes mellitus: Code(s): E11.9 - Type 2 diabetes mellitus without complications Status: Acute Assessment and Plan: Initiate sliding scale insulin, Accu-Cheks, and hypoglycemic protocol. Check hemoglobin A1c. (6) Obstructive sleep apnea: Code(s): G47.33 - Obstructive sleep apnea (adult) (pediatric) Status: Acute Assessment and Plan: He is intolerant to CPAP. (7) Benign prostatic hyperplasia with nocturia: Code(s): N40.1 - Benign prostatic hyperplasia with lower urinary tract symptoms; R35.1 - Nocturia Status: Acute Assessment and Plan: Continue finasteride and tamsulosin. Bladder scan p.r.n. as he has occasional sensations of inability to empty bladder. Subjective Date/time seen: 06/07/22 11:44 No complaints Exam Narrative: General: A well-developed, nontoxic appearing male sitting up in bed in no acute distress. Weight: 105.1 kg. BMI: 29.7. HEENT: Wearing hearing aids. PERRL, EOMI. Sclera anicteric. Oral mucosa moist. Neck: Supple. No significant jugular venous distension. Respiratory: Respirations are nonlabored and he is speaking in full sentences. Fine crackles at the bases. Cardiovascular: Regular rate and rhythm with S1-S2. Gastrointestinal: Abdomen is soft, nontender, and nondistended with positive bowel sounds. Skin: Warm and dry. Extremities: No cyanosis or clubbing. 2+ gail ankle edema bilaterally, right greater than left, softening towards the knees. Posterior tibialis pulses will but diminished bilaterally. Neurological: Alert. Cranial nerves 2-12 are grossly intact. No gross focal deficits to casual conversation. Psychiatric: Pleasant and cooperative with normal mood and affect. Judgment and insight intact. Objective Data Vital Signs Vital Signs: Vital Signs - 24 hr 06/06/22 12:00 06/06/22 12:00 06/06/22 12:00 Temperature 97.4 F L Pulse Rate 84 81 Respiratory Rate 18 Blood Pressure 129/70 Pulse Oximetry 99 96 Oxygen Delivery Nasal Cannula Oxygen Flow Rate 3 06/06/22 14:00 06/06/22 16:00 06/06/22 16:00 Temperature Pulse Rate 80 86 Respiratory Rate Blood Pressure Pulse Oximetry 96 Oxygen Delivery Nasal Cannula Oxygen Flow Rate 3 06/06/22 16:00 06/06/22 20:00 06/06/22 22:54 Temperature 96.8 F L 97.3 F L 97 F L Pulse Rate 81 80 84 Respiratory Rate 22 H 20 20 Blood Pressure 119/54 L 129/74 113/74 Pulse Oximetry 94 98 97 Oxygen Delivery Oxygen Flow Rate 06/06/22 20:00 06/06/22 20:00 06/06/22 22:00 Temperature Pulse Rate 82 80 Respiratory Rate Blood Pressure Pulse Oximetry 98 Oxygen Delivery Nasal Cannula Oxygen Flow Rate 3 06/06/22 23:57 06/07/22 00:00 06/07/22 02:00 Temperature Pulse Rate 80 84 Respiratory Rate Blood Pressure Pulse Oximetry 97 Oxygen Delivery Nasal Cannula Oxygen Flow Rate 3 04
[2022-06-07 13:06] LABS: Glucose Point of Care 107 mg/dl (65-105)
--- NOTE | 2022-06-07 14:47 | PM.PNCARD ---
Progress Note: A&P Assessment and Plan (1) Congestive heart failure: Code(s): I50.9 - Heart failure, unspecified Status: Acute Assessment and Plan: Progressive shortness of breath for the past couple of months. Evidence of CHF on chest Xray and physical exam with pulmonary rales. No swelling at this point. He is feeling better today with administration of IC furosemide Continue diuresis with IV furosemide today. Perhaps switch to p.o. furosemide tomorrow echocardiogram is pending. Further recommendations to follow review of those results daily weights strict intake and output BMP in the morning (2) Dyspnea on exertion: Code(s): R06.09 - Other forms of dyspnea Status: Acute Assessment and Plan: Secondary to above. Improving. Subjective Date/time seen: 06/07/22 14:47 Cardiology follow up for CHF Shortness of breath has improved today. He is making good urine. He does not have any specific complaints at the time of my visit. Review of Systems Constitutional: Constitutional: Reports no additional constitutional complaints Eyes: Eyes: Reports no additional eye complaints ENT: Reports system reviewed and no additional complaints, except as documented Cardiovascular: Cardiovascular: Reports as per HPI and Reports dyspnea on exertion Respiratory: Respiratory: Reports dyspnea on exertion Gastrointestinal: Gastrointestinal: Reports no additional gastrointestinal complaints Musculoskeletal: Musculoskeletal: Reports no additional musculoskeletal complaints Integumentary/Breasts: Skin/Breast: Reports system reviewed and no additional complaints, except as docu Endocrine: Endocrine: Reports no additional endocrine complaints Hematologic/Lymphatic: Hematologic/Lymphatic: Reports no additional hematologic/lymphatic complaints Allergic/Immunologic: Allergic/Immunologic: Reports no additional allergic/immunologic complaints Exam Const: General: comfortable and no acute distress HENMT: Mouth: Yes moist mucous membranes Eyes: Sclera: sclerae normal Pupils: Equal, round and reactive pupils present Neck: Neck: supple Resp: Effort & Inspection: normal respiratory effort Auscultation: not clear to auscultation bilaterally and rales Cardio: Rate: regular rate Rhythm: regular rhythm GI: Auscultation: normal bowel sounds Skin: General skin exam: normal color Neuro: Cranial nerves: Yes Equal, round and reactive pupils present Other: Alert and oriented x3 Extrem: Other: No edema Objective Data Vital Signs Vital Signs: Vital Signs - 24 hr 06/06/22 16:00 06/06/22 16:00 06/06/22 16:00 Temperature 36.0 C L Pulse Rate 86 81 Respiratory Rate 22 H Blood Pressure 119/54 L Pulse Oximetry 96 94 Oxygen Delivery Nasal Cannula Oxygen Flow Rate 3 06/06/22 20:00 06/06/22 22:54 06/06/22 20:00 Temperature 36.3 C L 36.1 C L Pulse Rate 80 84 82 Respiratory Rate 20 20 Blood Pressure 129/74 113/74 Pulse Oximetry 98 97 Oxygen Delivery Oxygen Flow Rate 06/06/22 20:00 06/06/22 22:00 06/06/22 23:57 Temperature Pulse Rate 80 Respiratory Rate Blood Pressure Pulse Oximetry 98 97 Oxygen Delivery Nasal Cannula Nasal Cannula Oxygen Flow Rate 3 3 06/07/22 00:00 06/07/22 02:00 06/07/22 04:00 Temperature Pulse Rate 80 84 83 Respiratory Rate Blood Pressure Pulse Oximetry Oxygen Delivery Oxygen Flow Rate 06/07/22 04:00 06/07/22 04:00 06/07/22 06:00 Temperature 36.3 C L Pulse Rate 81 81 Respiratory Rate 20 Blood Pressure 121/65 Pulse Oximetry 96 96 Oxygen Delivery Nasal Cannula Oxygen Flow Rate 3 06/07/22 08:00 06/07/22 08:52 06/07/22 08:00 Temperature 36.8 C Pulse Rate 80 Respiratory Rate 18 Blood Pressure 115/90 Pulse Oximetry 97 94 Oxygen Delivery Room Air Room Air Oxygen Flow Rate 06/07/22 08:00 06/07/22 10:00 06/07/22 12:00 Temperature Puls
[2022-06-07 18:04] LABS: Glucose Point of Care 131 mg/dl (65-105)
[2022-06-07 20:06] LABS: Glucose Point of Care 136 mg/dl (65-105)
[2022-06-07] MEDS: ATORVASTATIN 20 MG TABLET PO (20:14)
--- NOTE | 2022-06-07 21:18 | ECHO_ITS ---
Patient Info Name: Peter Canales Age: 76 years : 1945 Gender: Male Ht: 74 in Wt: 231 lbs BSA: 2.36 m2 HR: 81 bpm BP: 121 / 65 mmHg Heart Rhythm: Sinus Rhythm, Paced Technical Quality: Fair Exam Date: 06/07/2022 9:19 AM Exam Location: [facility] Patient Status: Outpatient Admit Date: 06/05/2022 Staff Ordering Physician: Jasmyn Shaw PA-C Generator Rebuilder: Lana Bryan RDCS Attending Provider: Fabien Araya MD Referring Physician: Colin ISBELL; Exam Type: CA echo dop color flow w con Study Info Indications - cad, chf, afib/flutter Complete two-dimensional, color flow and Doppler transthoracic echocardiogram is performed with contrast to opacify the left ventricle and to improve the deliniation of the left ventricle endocardial borders. Contrast/Agitated Saline Contrast/Ag. Saline: Definity Amount: 3.00 ml Administered By: Lana Bryan RDCS Existing IV Access: Yes IV Access Condition: patent with no signs of infiltration Summary 1. Left ventricular hypertrophy with mild LV enlargement. 2. Mild systolic dysfunction with significant apical hypokinesia and abnormal septal motion with pacing. 3. Global ejection fraction approximately 35-40%. 4. Biatrial dilation. 5. Pacemaker noted. 6. Sclerotic aortic valve with mild stenosis. Left Ventricle Left ventricular chamber dimension is mildly enlarged. Left ventricular systolic function is moderately reduced, estimated at 35-40%. There is moderate concentric increased left ventricular wall thickness. Left ventricular septal wall motion is abnormal with septal motion related to pacing. The left ventricular diastolic function is grade I diastolic dysfunction. Right Ventricle Right ventricular chamber dimension is normal. Left Atria Left atrial chamber dimension is moderately enlarged. Right Atria Right atrial chamber dimension is moderately enlarged. Aortic Valve The aortic valve is trileaflet. There is moderate aortic valve sclerosis. There is mild aortic valve stenosis with a peak velocity of 181.80 cm/s, mean gradient of 7 mmHg, and aortic valve area of 1.53 cm2. Pulmonic Valve The pulmonic valve is not well visualized. Mitral Valve The mitral valve has normal leaflets. Tricuspid Valve The tricuspid valve leaflets are normal. Pericardium/Pleural The pericardium appears normal. Aorta The aortic root size at the sinus of Valsalva is normal. Left Ventricular Outflow Tract Name Value Normal LVOT 2D LVOT Diameter 2.18 cm LVOT Doppler LVOT Peak Gradient 3 mmHg LVOT Mean Gradient 1 mmHg LVOT VTI 13.82 cm LVOT VTI/AV VTI Ratio 0.41 LVOT Stroke Volume 51.60 ml LVOT CO 4.16 l/min LVOT CI 1.76 L/min/m2 Pulmonic Valve Name Value N
[2022-06-08] VITALS (16 sets, daily range): BP systolic 107–140; BP diastolic 52–68; PULSE 60–82; RESP 16–20; TEMP 36.3–36.7; O2SAT 93–100
[2022-06-08 07:51] LABS: Glucose Point of Care 135 mg/dl (65-105)
[2022-06-08] MEDS: UMECLIDINIUM BROMIDE 62.5 MCG ELLIPTA 1 PUFF INHALATION (08:55)
[2022-06-08] MEDS: POTASSIUM CHLORIDE 20 MEQ TABLET.ER 40 MEQ PO (09:01)
[2022-06-08] MEDS: MULTIVITAMINS THERAPEUTIC TAB (*BKC) 1 TABLET PO (09:01)
[2022-06-08] MEDS: TAMSULOSIN HCL 0.4 MG CAPSULE PO (09:02)
[2022-06-08] MEDS: CLOPIDOGREL BISULFATE 75 MG TABLET PO (09:02)
[2022-06-08] MEDS: OMEGA 3 POLYUNSAT FATTY ACIDS 1 GM CAP PO ×2 (09:02→18:30)
[2022-06-08] MEDS: metFORMIN HCL 500 MG TABLET PO ×2 (09:02→18:30)
[2022-06-08] MEDS: APIXABAN 5 MG TABLET PO ×2 (09:02→21:16)
[2022-06-08] MEDS: PANTOPRAZOLE 40 MG TABLET PO ×2 (09:02→18:30)
[2022-06-08] MEDS: CHOLECALCIFEROL 1,000 UNITS TABLET 2000 UNITS PO (09:02)
[2022-06-08] MEDS: CYANOCOBALAMIN 1,000 MCG TABLET 1000 MCG PO (09:02)
[2022-06-08] MEDS: FINASTERIDE 5 MG TABLET PO (09:02)
[2022-06-08] MEDS: FUROSEMIDE INJ 40 MG/4 ML VIAL IV PUSH (09:03)
[2022-06-08] MEDS: VITAMIN E 400 UNIT CAPSULE PO (09:03)
--- NOTE | 2022-06-08 11:03 | PM.IMPN ---
Progress Note: A&P Assessment and Plan (1) Acute on chronic diastolic heart failure: Code(s): I50.33 - Acute on chronic diastolic (congestive) heart failure Status: Acute Assessment and Plan: Continue diuretic. Appreciate Cardiology input. Echo noted. EF 35-40% Shortness of breath is improved. (2) Paroxysmal atrial flutter: Code(s): I48.92 - Unspecified atrial flutter Status: Acute Assessment and Plan: Status post cardioversion on 06/03/2021. (3) Coronary artery disease: Code(s): I25.10 - Atherosclerotic heart disease of [place] coronary artery without angina pectoris Status: Acute Assessment and Plan: Status post 3 vessel bypass in January 2020. (4) Peripheral vascular disease: Code(s): I73.9 - Peripheral vascular disease, unspecified Status: Acute Assessment and Plan: Status post bilateral lower extremity stents in left carotid endarterectomy years ago. No acute issues. (5) Type 2 diabetes mellitus: Code(s): E11.9 - Type 2 diabetes mellitus without complications Status: Acute Assessment and Plan: Initiate sliding scale insulin, Accu-Cheks, and hypoglycemic protocol. Check hemoglobin A1c. (6) Obstructive sleep apnea: Code(s): G47.33 - Obstructive sleep apnea (adult) (pediatric) Status: Acute Assessment and Plan: He is intolerant to CPAP. (7) Benign prostatic hyperplasia with nocturia: Code(s): N40.1 - Benign prostatic hyperplasia with lower urinary tract symptoms; R35.1 - Nocturia Status: Acute Assessment and Plan: Continue finasteride and tamsulosin. Bladder scan p.r.n. as he has occasional sensations of inability to empty bladder. Subjective Date/time seen: 06/08/22 11:03 Shortness of breath is improved from yesterday. Tolerating diuretics. Exam Narrative: General: A well-developed, nontoxic appearing male sitting up in bed in no acute distress. Weight: 105.1 kg. BMI: 29.7. HEENT: Wearing hearing aids. PERRL, EOMI. Sclera anicteric. Oral mucosa moist. Neck: Supple. No significant jugular venous distension. Respiratory: Respirations are nonlabored and he is speaking in full sentences. Fine crackles at the bases. Cardiovascular: Regular rate and rhythm with S1-S2. Gastrointestinal: Abdomen is soft, nontender, and nondistended with positive bowel sounds. Skin: Warm and dry. Extremities: No cyanosis or clubbing. 2+ gail ankle edema bilaterally, right greater than left, softening towards the knees. Posterior tibialis pulses will but diminished bilaterally. Neurological: Alert. Cranial nerves 2-12 are grossly intact. No gross focal deficits to casual conversation. Psychiatric: Pleasant and cooperative with normal mood and affect. Judgment and insight intact. Objective Data Vital Signs Vital Signs: Vital Signs - 24 hr 06/07/22 12:00 06/07/22 12:00 06/07/22 12:00 Temperature 97.2 F L Pulse Rate 81 82 Respiratory Rate 18 Blood Pressure 124/79 Pulse Oximetry 97 Oxygen Delivery Room Air 06/07/22 14:00 06/07/22 16:00 06/07/22 16:00 Temperature Pulse Rate 81 81 Respiratory Rate Blood Pressure Pulse Oximetry Oxygen Delivery Room Air 06/07/22 16:00 06/07/22 18:00 06/07/22 20:00 Temperature 97.5 F L 97 F L Pulse Rate 87 81 91 Respiratory Rate 16 20 Blood Pressure 122/64 137/72 Pulse Oximetry 94 97 Oxygen Delivery 06/07/22 20:00 06/07/22 20:00 06/07/22 22:00 Temperature Pulse Rate 83 80 Respiratory Rate Blood Pressure Pulse Oximetry Oxygen Delivery Room Air 06/07/22 23:06 06/08/22 00:00 06/08/22 00:00 Temperature 97.2 F L Pulse Rate 80 81 Respiratory Rate 20 Blood Pressure 149/70 H Pulse Oximetry 99 Oxygen Delivery Room Air 06/08/22 02:00 06/08/22 04:00 06/08/22 04:00 Temperature 98.1 F Pulse Rate 80 80 80 Respiratory Rate 20 Blood Pressure 113/
--- NOTE | 2022-06-08 11:06 | PM.PNCARD ---
Progress Note: A&P Assessment and Plan (1) Acute on chronic diastolic heart failure: Code(s): I50.33 - Acute on chronic diastolic (congestive) heart failure Status: Acute Assessment and Plan: Check BMP today. Continue IV diuresis for now. Obtain CXR. Echocardiogram 06/07 showing LVEF 35-40%. Will trial GDMT and see how patient tolerates. Start low-dose Toprol XL. Start low-dose Entresto Start low-dose Spironolactone. Start Jardiance. (2) Coronary artery disease: Code(s): I25.10 - Atherosclerotic heart disease of [place] coronary artery without angina pectoris Status: Acute Assessment and Plan: S/p CABG. Stable. Continue Plavix and statin. Not on ASA to avoid triple therapy with Eliquis. (3) Paroxysmal atrial flutter: Code(s): I48.92 - Unspecified atrial flutter Status: Acute Assessment and Plan: S/p recent cardioversion 06/03. Continue Eliquis. Start beta markus. Subjective Date/time seen: 06/08/22 11:06 Interval history: Reason for visit: Shortness of breath, decompensated heart failure HPI: This is a very pleasant 76-year-old man with coronary artery disease and recent coronary bypass operation.? I am seeing him at the request of the hospitalist for assistance with the management and evaluation of congestive heart failure.? The patient he is known to my partner, Dr. France.? Apparently he was found to have coronary artery disease when he presented to this hospital with acute coronary syndrome back in January of 2022.? He was treated medically and brought to the cardiac catheterization lab and found to have severe coronary artery disease including involvement of his left main coronary artery.? He was transferred to [facility] where he underwent surgical revascularization on 02/02/2022.? He received an BAKARI graft to the LAD, a saphenous vein graft to his obtuse marginal and a radial artery graft to his LPDA.? He had a bit of a prolonged hospitalization receiving titanium plates with steel wires to the sternum due to previous sternal fractures and also he had evidence and problems with postoperative atrial fibrillation.? He was treated with amiodarone and then in the hospital he developed symptomatic bradycardia with symptomatic heart rates in the 40s despite holding medications.? For that reason on 02/12/2022 he received a dual-chamber Medtronic pacemaker as well.? The patient was ultimately discharged on February 17 of this year and was doing reasonably well.? He since hospital discharge has been seen several times in our office and he has been reporting symptoms of shortness of breath at a been slowly worsening.? He has not been having any orthopnea PND or edema.? He was taken off of amiodarone and metoprolol by his cardiac surgeon who when he was reporting symptoms of dizziness and orthostatic hypotension.? Eventually he was also taken off of losartan and furosemide that were also being previously prescribed.? He has been seen twice this month in our office on the of this month and again on just Tuesday of last week he was reporting some symptoms of worsening shortness of breath.? Couple of weeks ago was noticed that he was in atrial flutter of unknown chronicity.? He was DC cardioverted to sinus rhythm as an outpatient about a week ago.? Despite this shortness of breath has continued.? He is not reporting orthopnea or lower extremity edema he is not having any chest pain.? He came to the emergency room yesterday with worsening of this shortness of breath his chest x-ray does show moderate pulmonary edema and he was placed on intravenous furosemide.? He is feeling better this morning but still shortness of breath with modest activity he is being supplied with home oxygen as well.? After the office visit I on Tuesday of last week outpatient echocardiogram was scheduled which was not to be done until next month. Date of service 06/08: Shortness of breath has improved today.? He
[2022-06-08 11:07] LABS: Anion Gap 12 mmol/L (8-16); Blood Urea Nitrogen 24 mg/dL (9-20); Calcium 9.7 mg/dL (8.4-10.2); Carbon Dioxide 27 mmol/L (22-30); Chloride 96 mmol/L (98-107); Estimated CRCL calculation 50 ml/min; Estimated Glomerular Filt Rate 54; Glucose 120 mg/dL (65-110); Potassium 3.9 mmol/L (3.4-5.0); Sodium 135 mmol/L (137-145)
[2022-06-08] MEDS: METOPROLOL SUCCINATE EXT REL 25 MG TABCR PO (12:37)
[2022-06-08] MEDS: EMPAGLIFLOZIN 10 MG TABLET PO (12:38)
[2022-06-08] MEDS: SPIRONOLACTONE 12.5 MG TABLET PO (12:38)
[2022-06-08 12:39] LABS: Glucose Point of Care 102 mg/dl (65-105)
[2022-06-08 16:31] LABS: Glucose Point of Care 125 mg/dl (65-105)
[2022-06-08 20:38] LABS: Glucose Point of Care 121 mg/dl (65-105)
[2022-06-08] MEDS: SACUBITRIL/VALSARTAN 24-26 MG TABLET 1 TAB PO (21:16)
[2022-06-08] MEDS: ATORVASTATIN 20 MG TABLET PO (21:16)
[2022-06-09] VITALS (10 sets, daily range): BP systolic 96–140; BP diastolic 52–54; PULSE 80–85; RESP 18–20; TEMP 36.4–36.5; O2SAT 91–100
[2022-06-09 07:43] LABS: Anion Gap 9 mmol/L (8-16); Blood Urea Nitrogen 29 mg/dL (9-20); Calcium 9.5 mg/dL (8.4-10.2); Carbon Dioxide 30 mmol/L (22-30); Chloride 98 mmol/L (98-107); Estimated CRCL calculation 46 ml/min; Estimated Glomerular Filt Rate 49; Glucose 130 mg/dL (65-110); Potassium 4.5 mmol/L (3.4-5.0); Sodium 137 mmol/L (137-145)
[2022-06-09 08:04] LABS: Glucose Point of Care 127 mg/dl (65-105)
[2022-06-09] MEDS: UMECLIDINIUM BROMIDE 62.5 MCG ELLIPTA 1 PUFF INHALATION (08:16)
--- NOTE | 2022-06-09 09:21 | PM.PNCARD ---
Progress Note: A&P Assessment and Plan (1) Acute on chronic diastolic heart failure: Code(s): I50.33 - Acute on chronic diastolic (congestive) heart failure Status: Acute Assessment and Plan: Echocardiogram 06/07 showing LVEF 35-40%. IV Lasix changed to oral Lasix. Started low-dose Toprol XL. Started low-dose Entresto Started low-dose Spironolactone. Started Jardiance. Patient is tolerating GDMT well without issues. Okay for patient to be discharged home today. Will arrange outpatient follow up in our clinic. (2) Coronary artery disease: Code(s): I25.10 - Atherosclerotic heart disease of [place] coronary artery without angina pectoris Status: Acute Assessment and Plan: S/p CABG. Stable. Continue Plavix and statin. Not on ASA to avoid triple therapy with Eliquis. (3) Paroxysmal atrial flutter: Code(s): I48.92 - Unspecified atrial flutter Status: Acute Assessment and Plan: S/p recent cardioversion 06/03. Continue Eliquis. Started beta markus. Subjective Date/time seen: 06/09/22 09:21 Interval history: Reason for visit: Shortness of breath, decompensated heart failure HPI: This is a very pleasant 76-year-old man with coronary artery disease and recent coronary bypass operation.? I am seeing him at the request of the hospitalist for assistance with the management and evaluation of congestive heart failure.? The patient he is known to my partner, Dr. France.? Apparently he was found to have coronary artery disease when he presented to this hospital with acute coronary syndrome back in January of 2022.? He was treated medically and brought to the cardiac catheterization lab and found to have severe coronary artery disease including involvement of his left main coronary artery.? He was transferred to [facility] [place] where he underwent surgical revascularization on 02/02/2022.? He received an BAKARI graft to the LAD, a saphenous vein graft to his obtuse marginal and a radial artery graft to his LPDA.? He had a bit of a prolonged hospitalization receiving titanium plates with steel wires to the sternum due to previous sternal fractures and also he had evidence and problems with postoperative atrial fibrillation.? He was treated with amiodarone and then in the hospital he developed symptomatic bradycardia with symptomatic heart rates in the 40s despite holding medications.? For that reason on 02/12/2022 he received a dual-chamber Medtronic pacemaker as well.? The patient was ultimately discharged on February 17 of this year and was doing reasonably well.? He since hospital discharge has been seen several times in our office and he has been reporting symptoms of shortness of breath at a been slowly worsening.? He has not been having any orthopnea PND or edema.? He was taken off of amiodarone and metoprolol by his cardiac surgeon who when he was reporting symptoms of dizziness and orthostatic hypotension.? Eventually he was also taken off of losartan and furosemide that were also being previously prescribed.? He has been seen twice this month in our office on the of this month and again on just Tuesday of last week he was reporting some symptoms of worsening shortness of breath.? Couple of weeks ago was noticed that he was in atrial flutter of unknown chronicity.? He was DC cardioverted to sinus rhythm as an outpatient about a week ago.? Despite this shortness of breath has continued.? He is not reporting orthopnea or lower extremity edema he is not having any chest pain.? He came to the emergency room yesterday with worsening of this shortness of breath his chest x-ray does show moderate pulmonary edema and he was placed on intravenous furosemide.? He is feeling better this morning but still shortness of breath with modest activity he is being supplied with home oxygen as well.? After the office visit I on Tuesday of last week outpatient echocardiogram was scheduled which was not to be done unti
[2022-06-09] MEDS: VITAMIN E 400 UNIT CAPSULE PO (09:34)
[2022-06-09] MEDS: OMEGA 3 POLYUNSAT FATTY ACIDS 1 GM CAP PO (09:35)
[2022-06-09] MEDS: metFORMIN HCL 500 MG TABLET PO (09:35)
[2022-06-09] MEDS: METOPROLOL SUCCINATE EXT REL 25 MG TABCR PO (09:35)
[2022-06-09] MEDS: CLOPIDOGREL BISULFATE 75 MG TABLET PO (09:35)
[2022-06-09] MEDS: APIXABAN 5 MG TABLET PO (09:36)
[2022-06-09] MEDS: FINASTERIDE 5 MG TABLET PO (09:36)
[2022-06-09] MEDS: SACUBITRIL/VALSARTAN 24-26 MG TABLET 1 TAB PO (09:36)
[2022-06-09] MEDS: FUROSEMIDE 40 MG TABLET PO (09:36)
[2022-06-09] MEDS: PANTOPRAZOLE 40 MG TABLET PO (09:36)
[2022-06-09] MEDS: EMPAGLIFLOZIN 10 MG TABLET PO (09:36)
[2022-06-09] MEDS: MULTIVITAMINS THERAPEUTIC TAB (*BKC) 1 TABLET PO (09:36)
[2022-06-09] MEDS: CYANOCOBALAMIN 1,000 MCG TABLET 1000 MCG PO (09:36)
[2022-06-09] MEDS: SPIRONOLACTONE 12.5 MG TABLET PO (09:36)
[2022-06-09] MEDS: TAMSULOSIN HCL 0.4 MG CAPSULE PO (09:36)
[2022-06-09] MEDS: CHOLECALCIFEROL 1,000 UNITS TABLET 2000 UNITS PO (09:36)
--- NOTE | 2022-06-09 10:38 | PM.DS ---
DS: Admitting Diagnosis Discharge Date 06/09/22 Admitting Diagnosis Congestive Heart Failure DS: Discharge Diagnosis Discharge Diagnosis (1) Paroxysmal atrial flutter: Code(s): I48.92 - Unspecified atrial flutter Status: Acute (2) Acute on chronic diastolic heart failure: Code(s): I50.33 - Acute on chronic diastolic (congestive) heart failure Status: Acute (3) Obstructive sleep apnea: Code(s): G47.33 - Obstructive sleep apnea (adult) (pediatric) Status: Acute (4) Coronary artery disease: Code(s): I25.10 - Atherosclerotic heart disease of [place] coronary artery without angina pectoris Status: Acute (5) Type 2 diabetes mellitus: Code(s): E11.9 - Type 2 diabetes mellitus without complications Status: Acute DS: Summary Hospital Course Reason for hospitalization: Shortness of Breath Hospital Course: 76-year-old man with coronary artery disease and recent coronary bypass operation.? he was found to have coronary artery disease when he presented to this hospital with acute coronary syndrome back in January of 2022.? He was treated medically and brought to the cardiac catheterization lab and found to have severe coronary artery disease including involvement of his left main coronary artery.? He was transferred to [facility] where he underwent surgical revascularization on 02/02/2022.? He received an BAKARI graft to the LAD, a saphenous vein graft to his obtuse marginal and a radial artery graft to his LPDA.? He had a bit of a prolonged hospitalization receiving titanium plates with steel wires to the sternum due to previous sternal fractures and also he had evidence and problems with postoperative atrial fibrillation.? He was treated with amiodarone and then in the hospital he developed symptomatic bradycardia with symptomatic heart rates in the 40s despite holding medications.? For that reason on 02/12/2022 he received a dual-chamber Medtronic pacemaker as well.? The patient was ultimately discharged on February 17 of this year and was doing reasonably well.??Presented with worsening SOB.Cardiology was consulted, Echo showed EF of 35-40%, was diuresed with lasix with good response, Started low-dose Toprol XL,Entresto,Spironolactone and Jardiance.Discharged home in stable condition. Status at Discharge Functional status at discharge: independent ambulation Overall status at discharge: patient is back to baseline Time Spent with Patient Time attestation: Total time spent providing and/or coordinating discharge services: Time spent: Greater than 30 minutes Exam Narrative: General: A well-developed, nontoxic appearing male sitting up in bed in no acute distress. Weight: 105.1 kg. BMI: 29.7. HEENT: Wearing hearing aids. PERRL, EOMI. Sclera anicteric. Oral mucosa moist. Neck: Supple. No significant jugular venous distension. Respiratory: Respirations are nonlabored and he is speaking in full sentences. Fine crackles at the bases. Cardiovascular: Regular rate and rhythm with S1-S2. Gastrointestinal: Abdomen is soft, nontender, and nondistended with positive bowel sounds. Skin: Warm and dry. Extremities: No cyanosis or clubbing. 2+ gail ankle edema bilaterally, right greater than left, softening towards the knees. Posterior tibialis pulses will but diminished bilaterally. Neurological: Alert. Cranial nerves 2-12 are grossly intact. No gross focal deficits to casual conversation. Psychiatric: Pleasant and cooperative with normal mood and affect. Judgment and insight intact. DS: Data Data Completed and Pending Labs on day of discharge: Labs from last 24 hours 06/09/22 06/09/22 06/08/22 07:57 07:23 20:24 Sodium 137 Potassium 4.5 Chloride 98 Carbon Dioxide 30 Anion Gap 9 BUN 29 H Creatinine 1.40 H Estim Creat Clear Calc 46 Estimated GFR 49 L Glucose 130 H POC Capillary Glucose 127 H 121 H Calcium 9.5 04
== END 2022-06-09 12:40 | disposition home or self-care (01) | DRG 291 ==
LOC: ANHED 11:01 → ANHIMU 15:31
PROVIDERS: Emergency Medicine; Internal Medicine; Physician Assistant; Admitting Provider Chiropractor; Emergency Provider Physician Assistant; PCP Family Medicine Adolescent Medicine; Visit Provider Internal Medicine
DX: I11.0 Hypertensive heart disease with heart failure (principal); I50.33 Acute on chronic diastolic (congestive) heart failure; I48.92 Unspecified atrial flutter; I25.10 Atherosclerotic heart disease of native coronary artery without angina pectoris; I73.9 Peripheral vascular disease, unspecified; J44.9 Chronic obstructive pulmonary disease, unspecified; E11.9 Type 2 diabetes mellitus without complications; K21.9 Gastro-esophageal reflux disease without esophagitis; N40.1 Benign prostatic hyperplasia with lower urinary tract symptoms; R35.1 Nocturia; G47.33 Obstructive sleep apnea (adult) (pediatric); Z20.822 Contact with and (suspected) exposure to COVID-19; I25.2 Old myocardial infarction; Z79.01 Long term (current) use of anticoagulants; Z95.0 Presence of cardiac pacemaker; Z95.1 Presence of aortocoronary bypass graft; Z95.820 Peripheral vascular angioplasty status with implants and grafts; Z99.81 Dependence on supplemental oxygen; Z87.891 Personal history of nicotine dependence; Z86.010 Personal history of colon polyps
CPT/HCPCS: 36415; 71045; 71046; 80048; 80053; 82948; 83036; 83690; 83735; 83880; 84439; 84443; 84484; 85025; 85027; 85610; 85730; 87636; 93005; 93970; 94640; 96374; 96375; 96376; 99285; A9270; C8929; G0378; J1940; Q9957

== ENCOUNTER 2022-07-08 09:45 | Outpatient (RCR) | payer OTHER, SELFPAY | END 2022-07-08 12:17 | disposition home or self-care (01) | LOC: ANHCPREHAB 09:45 | PROVIDERS: PCP Family Medicine Adolescent Medicine; Visit Provider Internal Medicine | DX: Z95.1 Presence of aortocoronary bypass graft (principal) | CPT/HCPCS: 93798 ==

== ENCOUNTER 2022-07-14 14:19 | Emergency (ER) | payer OTHER, SELFPAY ==
[2022-07-14] VITALS (23 sets, daily range): BP systolic 87–130; BP diastolic 52–95; PULSE 75–87; RESP 14–32; TEMP 36.4; O2SAT 92–100
--- NOTE | ~2022-07-14 | XR_ITS ---
EXAMINATION: XR chest 1V portable DATE: 07/14/2022 14:50 INDICATION: Chest pain TECHNIQUE: frontal view of the chest was obtained. COMPARISON: Chest radiograph dated 06/08/2022 FINDINGS: Focal airspace opacity along the left heart border most likely atelectasis/scarring although pneumoni a not excludable. No pulmonary edema, pleural effusion or pneumothorax. Heart size is normal. Median sternotomy wires and mediastinal surgical clips are seen, likely from prior coronary artery bypass gr afting. Dual lead pacemaker seen with leads projecting over the expected locations of the right atriu m and right ventricle. There are also some retained epicardial pacemaker leads projecting over the he art. IMPRESSION: 1. Small subtle airspace opacity along the left heart border which could represent atelectasis or les s likely pneumonia. Reviewed, dictated and finalized at location B. IMPRESSION: 1. Small subtle airspace opacity along the left heart border which could repres ent atelectasis or less likely pneumonia.
--- NOTE | 2022-07-14 14:21 | ECG_ITS ---
Measurements Intervals [place] Rate: 80 P: 205 IA: 327 QRS: 36 QRSD: 93 T: -29 QT: 388 QTc: 448 Interpretive Statements ELECTRONIC ATRIAL PACEMAKER ANTEROSEPTAL INFARCT, AGE INDETERMINATE BORDERLINE T WAVE ABNORMALITY- INFERIOR LEADS ABNORMAL ECG COMPARED TO ECG 06/05/2022 10:49:25 NO LONGER VENTRICULAR PACING Electronically Signed On 07-14-2022 14:52:08 CDT by Cholo Lopez D.O.
[2022-07-14 14:37] LABS: Basophils Percent Auto 0.5 % (0.2-1.2); Eosinophils Absolute Auto 0.1 K/mm3 (0-0.3); Eosinophils Percent Auto 2.2 % (0-4.4); Hematocrit 38.5 % (42.0-52.0); Hemoglobin 12.5 g/dL (14.0-18.0); Immature Granulocyte Absolute 0.02 K/mm3 (0.00-0.031); Immature Granulocyte Percent A 0.3 % (0-0.5); Lymphocytes Percent Auto 26.9 % (18.3-44.2); Mean Corpuscular HGB Conc 32.5 g/dl (32-36); Mean Corpuscular Hemoglobin 28.5 pg (26-34); Mean Corpuscular Volume 87.7 fl (80-100); Mean Platelet Volume 9.8 fl (7.4-10.4); Monocytes Absolute Auto 0.5 K/mm3 (0.1-0.6); Monocytes Percent Auto 7.9 % (2.6-8.5); Neutrophils Absolute Auto 3.7 K/mm3 (1.3-6.7); Neutrophils Percent Auto 62.2 % (45.5-73.1); Platelet Count Result 191 k/mm3 (150-375); Red Blood Count 4.39 M/mm3 (4.6-6.20); Red Cell Distribution Width 19.7 % (11.5-14.5)
[2022-07-14 14:50] LABS: Alanine Aminotransferase 30 U/L (6-50); Albumin Level 4.5 g/dL (3.5-5.1); Alkaline Phosphatase 59 U/L (38-126); Anion Gap 13 mmol/L (8-16); Aspartate Amino Transferase 30 U/L (17-59); Bilirubin,Total 0.8 mg/dL (0.2-1.3); Blood Urea Nitrogen 31 mg/dL (9-20); Calcium 8.9 mg/dL (8.4-10.2); Carbon Dioxide 22 mmol/L (22-30); Chloride 102 mmol/L (98-107); Estimated CRCL calculation 33 ml/min; Estimated Glomerular Filt Rate 33; Glucose 120 mg/dL (65-110); Lipase 59 U/L (23-300); Potassium 3.8 mmol/L (3.4-5.0); Sodium 137 mmol/L (137-145)
[2022-07-14 14:51] LABS: INR 1.4; Partial Thromboplastin Time 33.7 SECONDS (22.3-36.8)
[2022-07-14 15:01] LABS: Troponin I < 0.012 ng/mL (0.000-0.034)
[2022-07-14 15:12] LABS: Magnesium 1.6 mg/dL (1.6-2.3)
[2022-07-14 15:20] LABS: NT Pro B Type Natriuretic Pept 763 pg/mL (19.9-100)
--- NOTE | 2022-07-14 16:02 | ED.GENADULT ---
HPI - General Adult General Chief complaint: Chest Pain Stated complaint: cp Time Seen by Provider: 07/14/22 14:35 History of Present Illness HPI narrative: Patient 76-year-old gentleman who presents the emergency department with chief complaint of chest pain. Patient reports that he had a bypass in the end of January 1 week of February the patient reports that since that he has been having some discomfort and fullness in the left side of his chest and has been having intermittent shortness of breath patient reports has completed cardiac rehab and reports today he had a tingling sensation over his entire body which was what he felt prior to having his bypass the patient states he also did feel the tightness that he has been having in his chest and also reports that he has been having the shortness of breath that is unchanged from previously. Patient reports no new peripheral edema reports no fever no chills Related Data Home Medications Medication Instructions Recorded Confirmed cholecalciferol (vitamin D3) 50 50 mcg PO DAILY 02/04/21 06/15/22 mcg (2,000 unit) tablet [id number]-[id number]-hyal 1 tablet PO BID 02/04/21 06/15/22 750 mg-100 mg-125 mg-1.65 mg tablet (Glucosamine Chondroit Complx Advan) multivitamin 1 tablet PO DAILY 02/04/21 06/15/22 clopidogrel 75 mg tablet (Plavix) 75 mg PO DAILY 01/19/22 06/15/22 omega 8-iqs-vkd-fish oil 1,200 mg 1 cap PO BID 01/19/22 06/15/22 (144 mg-216 mg) capsule (Fish Oil) apixaban 5 mg tablet 5 mg PO BID 03/03/22 06/15/22 cyanocobalamin (vitamin B-12) 1,000 mcg PO DAILY 06/05/22 06/15/22 1,000 mcg tablet tiotropium bromide 2.5 1 inh inhalation QID 06/05/22 06/15/22 mcg/actuation mist for inhalation vitamin E 200 unit capsule 400 unit PO DAILY 06/05/22 06/15/22 Allergies Allergy/AdvReac Type Severity Reaction Status Date / Time penicillin V Allergy Rash Verified 07/14/22 14:56 Review of Systems Review of Systems: A 10 system review of systems was completed on the patient and is negative except for what is stated in the HPI. Nursing and ancillary documentation was reviewed. PMFSH Past Medical History Medical History Actinic keratitis Adenomatous colon polyp Arthritis Benign prostatic hyperplasia with nocturia Chronic obstructive pulmonary disease, unspecified Coronary artery disease Essential hypertension Gastroesophageal reflux disease History of kidney stones Non-ST elevation ID (NSTEMI) Obstructive sleep apnea Intolerant to CPAP. Paroxysmal atrial fibrillation Paroxysmal atrial flutter Peripheral vascular disease Symptomatic bradycardia (01/2022) Status post permanent pacemaker insertion. Type 2 diabetes mellitus Surgical History Surgical History History of angioplasty (2021) History of cardiac catheterization History of carpal tunnel release (2015) History of cataract extraction with lens replacement (2019) History of colonoscopy (10/2021) History of coronary artery bypass graft x 3 (02/02/22) History of hydrocelectomy (01/2004) History of left-sided carotid endarterectomy (2011) History of permanent cardiac pacemaker placement (02/12/22) History of toe surgery History of vascular surgery Bilateral lower extremity stents. Status post surgical removal of malignant neoplasm of skin (2020) Neck. Family History Family History Mother Patient's mother is endometrial cancer? Sibling Patient's brother is Father Acute myocardial infarction Hypertension Social History Social History Social History: Surrogate medical decision maker: Brandon Canales, son. Code status: Full code. Smoking packs per day: 1 Smoking cigarettes per day: 20.0
[2022-07-14] MEDS: MAGNESIUM SULF 2 GM/WATER 50ML 2 GM/50 ML BAG IVPB (16:09)
[2022-07-14 17:47] LABS: Troponin I < 0.012 ng/mL (0.000-0.034)
== END 2022-07-14 18:00 | disposition home or self-care (01) ==
PROVIDERS: Emergency Medicine; Emergency Provider Emergency Medicine; PCP Family Medicine Adolescent Medicine
DX: R07.89 Other chest pain (principal); E83.42 Hypomagnesemia; R06.02 Shortness of breath; I25.10 Atherosclerotic heart disease of native coronary artery without angina pectoris; I10 Essential (primary) hypertension; I48.0 Paroxysmal atrial fibrillation; I48.92 Unspecified atrial flutter; I25.2 Old myocardial infarction; J44.9 Chronic obstructive pulmonary disease, unspecified; E11.51 Type 2 diabetes mellitus with diabetic peripheral angiopathy without gangrene; I73.9 Peripheral vascular disease, unspecified; N40.1 Benign prostatic hyperplasia with lower urinary tract symptoms; R35.1 Nocturia; Z95.1 Presence of aortocoronary bypass graft; Z95.0 Presence of cardiac pacemaker; Z98.49 Cataract extraction status, unspecified eye; Z96.1 Presence of intraocular lens; K21.9 Gastro-esophageal reflux disease without esophagitis; Z86.010 Personal history of colon polyps; Z85.828 Personal history of other malignant neoplasm of skin; Z87.442 Personal history of urinary calculi; Z87.891 Personal history of nicotine dependence; Z79.01 Long term (current) use of anticoagulants; Z79.84 Long term (current) use of oral hypoglycemic drugs
CPT/HCPCS: 36415; 71045; 80053; 83690; 83735; 83880; 84484; 85025; 85610; 85730; 93005; 96365; 99284; J3475

== ENCOUNTER 2022-07-20 01:42 | Day surgery (SDC) | payer OTHER, SELFPAY ==
[2022-07-19 16:56] VITALS: BMI 27.5
[2022-07-20] VITALS (11 sets, daily range): BP systolic 96–136; BP diastolic 53–88; PULSE 77–80; RESP 14–18; TEMP 36.2; O2SAT 94–100; BMI 28.0
[2022-07-20 07:27] LABS: Basophils Percent Auto 0.5 % (0.2-1.2); Eosinophils Absolute Auto 0.2 K/mm3 (0-0.3); Eosinophils Percent Auto 3.4 % (0-4.4); Hematocrit 43.1 % (42.0-52.0); Hemoglobin 13.7 g/dL (14.0-18.0); Immature Granulocyte Absolute 0.03 K/mm3 (0.00-0.031); Immature Granulocyte Percent A 0.5 % (0-0.5); Lymphocytes Absolute Auto 1.98 K/mm3 (0.9-3.2); Lymphocytes Percent Auto 30.4 % (18.3-44.2); Mean Corpuscular HGB Conc 31.8 g/dl (32-36); Mean Corpuscular Hemoglobin 28.7 pg (26-34); Mean Corpuscular Volume 90.2 fl (80-100); Monocytes Absolute Auto 0.6 K/mm3 (0.1-0.6); Monocytes Percent Auto 8.9 % (2.6-8.5); Neutrophils Absolute Auto 3.7 K/mm3 (1.3-6.7); Neutrophils Percent Auto 56.3 % (45.5-73.1); Platelet Count Result 195 k/mm3 (150-375); Red Blood Count 4.78 M/mm3 (4.6-6.20); Red Cell Distribution Width 20.5 % (11.5-14.5); White Blood Count 6.5 K/mm3 (4.5-10.0)
[2022-07-20 08:40] LABS: Anion Gap 7 mmol/L (8-16); Blood Urea Nitrogen 32 mg/dL (9-20); Calcium 8.9 mg/dL (8.4-10.2); Carbon Dioxide 26 mmol/L (22-30); Chloride 104 mmol/L (98-107); Estimated CRCL calculation 41 ml/min; Estimated Glomerular Filt Rate 42; Glucose 107 mg/dL (65-110); Potassium 4.3 mmol/L (3.4-5.0); Sodium 137 mmol/L (137-145)
--- NOTE | 2022-07-20 09:44 | WPDHPUPDATE1 ---
History and Physical Update Update Date/Time: 07/20/22 09:44 History and Physical has been reviewed, including an updated exam of the patient. There are NO changes in the patient's condition. Risks, benefits, and alternatives have been discussed and questions answered. Patient agrees to proceed with procedure.
--- NOTE | 2022-07-20 09:44 | WPDMODSED ---
Moderate Sedation Note-Pt Data Patient Data Diagnosis: Shortness of breath, CAD s/p CABG, HFrEF Present Complaint: Shortness of breath Procedure to be performed/Plan: Right heart cath Allergies Allergy/AdvReac Type Severity Reaction Status Date / Time No Known Allergies Allergy Verified 07/20/22 07:14 Home Medications Medication Instructions Recorded Confirmed Type cholecalciferol (vitamin D3) 50 50 mcg PO DAILY 02/04/21 07/19/22 History mcg (2,000 unit) tablet lcabjehyywh-hstmgbyyz-[id number]-hyal 1 tablet PO BID 02/04/21 07/19/22 History 750 mg-100 mg-125 mg-1.65 mg tablet (Glucosamine Chondroit Complx Advan) multivitamin 1 tablet PO DAILY 02/04/21 07/19/22 History clopidogrel 75 mg tablet (Plavix) 75 mg PO DAILY 01/19/22 07/19/22 History omega 8-tgv-utu-fish oil 1,200 mg 1 cap PO BID 01/19/22 07/19/22 History (144 mg-216 mg) capsule (Fish Oil) apixaban 5 mg tablet 5 mg PO BID 03/03/22 07/19/22 History finasteride 5 mg tablet 5 mg PO DAILY #90 tabs 05/12/22 07/19/22 Rx metformin 500 mg tablet 500 mg PO BID #180 tabs 05/12/22 07/19/22 Rx omeprazole 40 mg capsule,delayed 40 mg PO DAILY #90 caps 05/12/22 07/19/22 Rx release tamsulosin 0.4 mg capsule 0.4 mg PO DAILY #90 caps 05/12/22 07/19/22 Rx cyanocobalamin (vitamin B-12) 1,000 mcg PO DAILY 06/05/22 07/19/22 History 1,000 mcg tablet tiotropium bromide 2.5 1 inh inhalation QID 06/05/22 07/19/22 History mcg/actuation mist for inhalation vitamin E 200 unit capsule 400 unit PO DAILY 06/05/22 07/19/22 History furosemide 40 mg tablet 40 mg PO DAILY #30 tabs 06/09/22 07/19/22 Rx spironolactone 25 mg tablet 12.5 mg PO DAILY #30 tabs 06/09/22 07/19/22 Rx (Aldactone) atorvastatin 40 mg tablet 40 mg PO QHS #90 tabs 06/15/22 07/19/22 Rx ferrous sulfate 325 mg (65 mg 325 mg PO DAILY #90 tabs 06/15/22 07/19/22 Rx iron) tablet (FeroSul) levothyroxine 100 mcg tablet 100 mcg PO DAILY #60 tabs 06/21/22 07/19/22 Rx empagliflozin 10 mg tablet 10 mg PO DAILY #30 tabs 07/05/22 07/19/22 Rx (Jardiance) metoprolol succinate 25 mg 25 mg PO QAM #30 tabs 07/05/22 07/19/22 Rx tablet,extended release 24 hr (Toprol XL) nitroglycerin 0.4 mg sublingual 0.4 mg sublingual Q5M PRN chest 07/05/22 07/19/22 Rx tablet pain #100 tabs sacubitril 24 mg-valsartan 26 mg 1 tablet PO Q12HR #60 tabs 07/05/22 07/19/22 Rx tablet (Entresto) amiodarone 400 mg tablet (Pacerone) 400 mg PO DAILY 07/19/22 07/19/22 History amlodipine 5 mg tablet 5 mg PO DAILY #30 tabs 07/19/22 07/19/22 Rx Current Medications: Active Medications Sodium Chloride (Normal Saline Iv) 500 mls @ 100 mls/hr IV CONT .Q5H YARIEL Sedation/Anesthesia: No previous sedation/anesthesia problems (including family history). [facility] Past Medical History Medical History Actinic keratitis Adenomatous colon polyp Arthritis Benign prostatic hyperplasia with nocturia Chronic obstructive pulmonary disease, unspecified Coronary artery disease Essential hypertension Gastroesophageal reflux disease History of kidney stones Non-ST elevation [place] (NSTEMI) Obstructive sleep apnea Intolerant to CPAP. Paroxysmal atrial fibrillation Paroxysmal atrial flutter Peripheral vascular disease Symptomatic bradycardia (01/2022) Status post permanent pacemaker insertion. Type 2 diabetes mellitus Surgical History Surgical History History of angioplasty (2021) History of cardiac catheterization History of carpal tunnel release (2015) History of cataract extraction with lens replacement (2019) History of colonoscopy (10/2021) History of coronary artery bypass graft x 3 (02/02/22) History of hydrocelectomy (01/2004) History of left-sided carotid endarterectomy (2011) History of permanent cardiac pacemaker placement (02/12/22) History of toe surgery History of vascular surgery Bilateral lower extremity stents. Stat
--- NOTE | 2022-07-20 09:47 | WPDCARDPROC ---
Cardiac Cath Procedure Note Date of procedure:: 07/20/22 Performing physician:: CATHETERIZATION LABORATORY REPORT Procedure Date: 07/20/2022 [employer] Supervisor: Bette France M.D., [facility]? Referring Physician: Bette France M.D. ? Anesthesia: Sedation was not administered for this procedure. Procedure start time: 9:22 AM Procedure end time: 9:40 AM Total procedure time: 18 minutes Pre-op Diagnosis: Shortness of breath in setting of CAD s/p CABG, HFrEF Post-op Diagnosis: 1. Normal right heart filling pressures 2. No pulmonary hypertension 3. Preserved cardiac output by Gabriel of 4.2 4. Reduced cardiac index by Gabriel of 1.8 Procedure(s): 1. Ultrasound-guided access of the right femoral vein 2. Right heart cath Access Site: Right femoral vein Brief History and Clinical Indications: Patient is a 76 year old male s/p recent CABG, HFrEF who is referred for RHC for persistent shortness of breath. All risks, benefits and alternatives to right heart catheterization was discussed at length with the patient. Risk of complications including but not limited to bleeding, infection, arrhythmia, stroke, worsening kidney function, blood loss, groin hematoma, limb loss, emergency surgery, and even were discussed with the patient and all questions were answered. The patient understood and wished to proceed. Time out called, patient name, date of , medical record number, allergies, procedure performed, identify [employer] Supervisor, patient and staff member concurred with accurate data, procedure carried on. Findings: RIGHT HEART CATHETERIZATION FINDINGS: Pressures (mmHg): RA: 1mmHg RV: 22/-1mmHg PA: 23/6mmHg with mean of 13mmHg PCWP: 6mmHg Saturations (%): PA: 61.5% Arterial: 98.0% CO/CI: Gabriel CO: 4.2 Gabriel CI: 1.8 PVR (ISLAS): 1.7 Description of Procedure: Informed consent signed and placed in the chart. Patient transferred to labor relations manager room. Prepped and draped in usual sterile fashion. 2% lidocaine injected subcutaneously in right groin area. Right femoral vein was accessed using micropuncture technique. 7-FR sheath placed. 7F Wilsons-Joaquina catheter was advanced into the right side of the heart chambers and pressures were measured. Hemostasis was achieved by manual pressure. ? Assessment: 1. Normal right heart filling pressures 2. No pulmonary hypertension 3. Preserved cardiac output by Gabriel of 4.2 4. Reduced cardiac index by Gabriel of 1.8 Post Operative Condition: Stable No significant blood loss Disposition: Floor Plan: The patient will be monitored in the recovery area. The above findings were discussed with the referring physician. Continue aggressive medical therapy and risk factor modification. ? Bette France M.D. Interventional Cardiology
== END 2022-07-20 13:00 | disposition home or self-care (01) ==
PROVIDERS: PCP Family Medicine Adolescent Medicine; Visit Provider Internal Medicine
PROC: 4A023N6 Measurement of Cardiac Sampling and Pressure, Right Heart, Percutaneous Approach (ICD-10-PCS; CPT 93451; principal; 2022-07-20 08:30)
DX: I25.10 Atherosclerotic heart disease of native coronary artery without angina pectoris (principal); I11.0 Hypertensive heart disease with heart failure; I50.9 Heart failure, unspecified; I25.5 Ischemic cardiomyopathy; R06.02 Shortness of breath; Z95.1 Presence of aortocoronary bypass graft; I25.2 Old myocardial infarction; I48.0 Paroxysmal atrial fibrillation; E11.51 Type 2 diabetes mellitus with diabetic peripheral angiopathy without gangrene; J44.9 Chronic obstructive pulmonary disease, unspecified; N40.1 Benign prostatic hyperplasia with lower urinary tract symptoms; R35.1 Nocturia; K21.9 Gastro-esophageal reflux disease without esophagitis; G47.33 Obstructive sleep apnea (adult) (pediatric); Z79.02 Long term (current) use of antithrombotics/antiplatelets; Z79.01 Long term (current) use of anticoagulants; Z79.84 Long term (current) use of oral hypoglycemic drugs; Z95.0 Presence of cardiac pacemaker; Z95.820 Peripheral vascular angioplasty status with implants and grafts; Z87.891 Personal history of nicotine dependence
CPT/HCPCS: 36415; 80048; 85025; 93451; C1894; J1644; J7040

== ENCOUNTER → 2022-08-26 06:59 | Outpatient (CLI) | payer OTHER, SELFPAY ==
--- NOTE | ~2022-08-26 | XR_ITS ---
Lumbosacral Spine: AP and lateral views Clinical History: Pain Findings: The normal lordotic curve is maintained. No acute fracture or subluxation. There is advance d degenerative disc narrowing at L1-L2 and L5-S1. There is mild to moderate degenerative disc change at the remaining lumbar levels. There is diffuse moderate to severe facet arthropathy. The sacroiliac joints are normally outlined. Impression: Moderate degenerative spondylosis, as detailed above. Reviewed, dictated and finalized at location M. Impression: Moderate degenerative spondylosis, as detailed above.
== END ==
PROVIDERS: PCP Family Medicine Adolescent Medicine; Visit Provider Family Medicine Adolescent Medicine
DX: M47.896 Other spondylosis, lumbar region (principal)
CPT/HCPCS: 72100

== ENCOUNTER 2022-08-28 16:04 | Observation (INO) | payer OTHER, SELFPAY ==
[2022-08-28] VITALS (14 sets, daily range): BP systolic 86–129; BP diastolic 42–98; PULSE 71–82; RESP 17–31; TEMP 36.3; O2SAT 95–100; BMI 28.3
--- NOTE | ~2022-08-28 | XR_ITS ---
EXAMINATION: XR chest 2V DATE: 08/28/2022 16:47 INDICATION: Left chest pain. TECHNIQUE: Frontal and lateral views of the chest were obtained on 3 radiographs. COMPARISON: Chest single view 07/14/2022, chest CT 01/18/2022 FINDINGS: There is mild atelectasis in the lower lung zones. No pleural effusion or pneumothorax. The heart size is normal. Median sternotomy wires and mediastinal surgical clips are seen, likely from p rior coronary artery bypass grafting. There is a left chest wall pacer with leads in the right atrium and right ventricle. IMPRESSION: 1. Mild atelectasis in the lower lung zones. Reviewed, dictated and finalized at location E.
--- NOTE | 2022-08-28 16:18 | ECG_ITS ---
Measurements Intervals [place] Rate: 79 P: 7 CT: 321 QRS: 21 QRSD: 90 T: 6 QT: 389 QTc: 448 Interpretive Statements ELECTRONIC ATRIAL PACEMAKER WITH PROLONGED CT INTERVAL ANTEROSEPTAL INFARCT, AGE INDETERMINATE BASELINE ARTIFACT- I, III, AVR, AVL, AVF, V1-V6 ABNORMAL ECG COMPARED TO ECG 07/14/2022 14:27:11 NO SIGNIFICANT CHANGES Electronically Signed On 08-29-2022 7:56:53 CDT by Cholo Lopez D.O.
--- NOTE | 2022-08-28 16:28 | ED.CHESTPAIN ---
HPI - Chest Pain General Chief Complaint: Chest Pain Stated Complaint: chest pain x40 minutes Time Seen by Provider: 08/28/22 16:12 History of Present Illness HPI narrative: Patient is a 76-year-old male who presents ER with sudden onset chest pain. Began 40 minutes prior to arrival. Sharp and in center of his chest rating to his left shoulder and down his left arm. Has had this recurrently since having open heart surgery 6 months ago. His school supervisor is Dr. France here. He denies any modifying factors. He attempted nitroglycerin without improvement. No pain with deep breath. No exertional chest discomfort. Related Data Home Medications Medication Instructions Recorded Confirmed cholecalciferol (vitamin D3) 50 50 mcg PO DAILY 02/04/21 07/19/22 mcg (2,000 unit) tablet uhfaaimyijz-ckpeypdgt-lcwj375-hyal 1 tablet PO BID 02/04/21 07/19/22 750 mg-100 mg-125 mg-1.65 mg tablet (Glucosamine Chondroit Complx Advan) multivitamin 1 tablet PO DAILY 02/04/21 07/19/22 clopidogrel 75 mg tablet (Plavix) 75 mg PO DAILY 01/19/22 07/19/22 omega 4-hph-qwg-fish oil 1,200 mg 1 cap PO BID 01/19/22 07/19/22 (144 mg-216 mg) capsule (Fish Oil) apixaban 5 mg tablet 5 mg PO BID 03/03/22 07/19/22 cyanocobalamin (vitamin B-12) 1,000 mcg PO DAILY 06/05/22 07/19/22 1,000 mcg tablet tiotropium bromide 2.5 1 inh inhalation QID 06/05/22 07/19/22 mcg/actuation mist for inhalation vitamin E 200 unit capsule 400 unit PO DAILY 06/05/22 07/19/22 amiodarone 400 mg tablet (Pacerone) 400 mg PO DAILY 07/19/22 07/19/22 Allergies Allergy/AdvReac Type Severity Reaction Status Date / Time No Known Allergies Allergy Verified 08/28/22 16:36 Review of Systems Review of Systems: All systems reviewed & are unremarkable except as noted in HPI and below Constitutional: Constitutional: Denies chills, Denies fatigue and Denies fever(s) Cardiovascular: Cardiovascular: Reports chest pain, Denies rapid heart rate and Reports radiating jaw, neck or arm pain Respiratory: Respiratory: Denies cough, Denies dyspnea and Denies wheezing Gastrointestinal: Gastrointestinal: Denies abdominal pain, Denies nausea and Denies vomiting Musculoskeletal: Musculoskeletal: Denies back pain and Denies myalgias [facility] Past Medical History Medical History (Updated 08/28/22 @ 19:28 by Sterling Elder MD) Actinic keratitis Adenomatous colon polyp Arthritis Benign prostatic hyperplasia with nocturia Chronic obstructive pulmonary disease, unspecified Coronary artery disease Essential hypertension Gastroesophageal reflux disease History of kidney stones Ischemic cardiomyopathy Ejection fraction 35 to 40% per TTE 03/2022. Non-ST elevation [place] (NSTEMI) Obstructive sleep apnea Intolerant to CPAP. Paroxysmal atrial fibrillation Paroxysmal atrial flutter Peripheral vascular disease Symptomatic bradycardia (01/2022) Status post permanent pacemaker insertion. Type 2 diabetes mellitus Surgical History Surgical History (Updated 08/28/22 @ 16:37 by Sterling Elder MD) History of angioplasty (2021) History of cardiac catheterization History of carpal tunnel release (2015) History of cataract extraction with lens replacement (2019) History of colonoscopy (10/2021) History of coronary artery bypass graft x 3 (02/02/22) LEA to LAD, SVG to obtuse marginal, radial artery graft to L PDA. History of hydrocelectomy (01/2004) History of left-sided carotid endarterectomy (2011) History of permanent cardiac pacemaker placement (02/12/22) History of toe surgery History of vascular surgery Bilateral lower extremity stents. Status post surgical removal of malignant neoplasm of skin (2020) Neck. Family History Family History Mother Patient's mother is endometrial cancer? Sibling Patient's brother is Father Acute myocardial infarction Hypertension Social History
[2022-08-28 16:38] LABS: Basophils Percent Auto 0.7 % (0.2-1.2); Eosinophils Absolute Auto 0.2 K/mm3 (0-0.3); Eosinophils Percent Auto 3.2 % (0-4.4); Hematocrit 40.8 % (42.0-52.0); Hemoglobin 13.3 g/dL (14.0-18.0); Immature Granulocyte Absolute 0.02 K/mm3 (0.00-0.031); Immature Granulocyte Percent A 0.3 % (0-0.5); Lymphocytes Absolute Auto 1.51 K/mm3 (0.9-3.2); Lymphocytes Percent Auto 25.4 % (18.3-44.2); Mean Corpuscular HGB Conc 32.6 g/dl (32-36); Mean Corpuscular Hemoglobin 30.5 pg (26-34); Mean Corpuscular Volume 93.6 fl (80-100); Mean Platelet Volume 9.5 fl (7.4-10.4); Monocytes Absolute Auto 0.5 K/mm3 (0.1-0.6); Monocytes Percent Auto 8.6 % (2.6-8.5); Neutrophils Absolute Auto 3.7 K/mm3 (1.3-6.7); Neutrophils Percent Auto 61.8 % (45.5-73.1); Platelet Count Result 195 k/mm3 (150-375); Red Blood Count 4.36 M/mm3 (4.6-6.20); Red Cell Distribution Width 19.8 % (11.5-14.5)
[2022-08-28 16:48] LABS: Alanine Aminotransferase 28 U/L (6-50); Albumin Level 4.1 g/dL (3.5-5.1); Alkaline Phosphatase 59 U/L (38-126); Anion Gap 10 mmol/L (8-16); Aspartate Amino Transferase 28 U/L (17-59); Bilirubin,Total 0.6 mg/dL (0.2-1.3); Blood Urea Nitrogen 24 mg/dL (9-20); Calcium 9.2 mg/dL (8.4-10.2); Carbon Dioxide 25 mmol/L (22-30); Chloride 105 mmol/L (98-107); Estimated CRCL calculation 50 ml/min; Estimated Glomerular Filt Rate 54; Glucose 132 mg/dL (65-110); Potassium 4.3 mmol/L (3.4-5.0); Sodium 140 mmol/L (137-145)
[2022-08-28 16:53] LABS: Prothrombin Time 14.1 Seconds (11.1-14.7)
[2022-08-28 16:54] LABS: Partial Thromboplastin Time 27.5 SECONDS (22.3-36.8)
[2022-08-28] MEDS: MORPHINE SULFATE (*CRX) 2 MG/ML INJ IV PUSH ×2 (16:54→18:42)
[2022-08-28 16:59] LABS: Troponin I < 0.012 ng/mL (0.000-0.034)
[2022-08-28 17:06] LABS: NT Pro B Type Natriuretic Pept 586 pg/mL (19.9-100)
--- NOTE | 2022-08-28 18:29 | PM.IMHP ---
H&P: HPI History of Present Illness Date/Time: 08/28/22 18:30 Chief Complaint: Chest pain. Narrative: This is a very pleasant 76-year-old male with coronary artery disease status post 3 vessel bypass in January 2022, paroxysmal atrial fibrillation/flutter status post cardioversion on 06/03/2022 on chronic anticoagulation, symptomatic bradycardia status post permanent pacemaker insertion January 2022, peripheral vascular disease status post lower extremity stents, type 2 diabetes mellitus, diastolic dysfunction, hypertension, benign prostatic hyperplasia, and GERD who presented to the emergency department via private vehicle from home for evaluation of chest pain. The patient provides the following history. About 40 minutes prior to arrival he developed sudden onset of a heaviness diffusely across the chest radiating to the left shoulder and down the left arm associated with sweats. The discomfort occurred while at rest and he has not noticed that is worse with exertion. Nitroglycerin taken at home provided him with no relief. He has had similar episodes intermittently since his bypass and he has seen Dr. France for the symptoms previously though he has never received any answers as to what is causing the pain. He denies associated dizziness, lightheadedness, pleuritic pain, shortness a breath, nausea, vomiting, and sweats. Vital signs have been stable since arrival. Initial troponin was negative. EKG did not demonstrate any acute ST segment changes. Morphine given in the emergency department seems to have relieved the pain somewhat and he is comfortable at the time my evaluation. Review of Systems Review of Systems: Twelve systems were reviewed and are negative except for as per HPI. [facility] Past Medical History Medical History Actinic keratitis Adenomatous colon polyp Arthritis Benign prostatic hyperplasia with nocturia Chronic obstructive pulmonary disease, unspecified Coronary artery disease Essential hypertension Gastroesophageal reflux disease History of kidney stones Ischemic cardiomyopathy Ejection fraction 35 to 40% per TTE 03/2022. Non-ST elevation [place] (NSTEMI) Obstructive sleep apnea Intolerant to CPAP. Paroxysmal atrial fibrillation Paroxysmal atrial flutter Peripheral vascular disease Symptomatic bradycardia (01/2022) Status post permanent pacemaker insertion. Type 2 diabetes mellitus Surgical History Surgical History History of angioplasty (2021) History of cardiac catheterization History of carpal tunnel release (2015) History of cataract extraction with lens replacement (2019) History of colonoscopy (10/2021) History of coronary artery bypass graft x 3 (02/02/22) LEA to LAD, SVG to obtuse marginal, radial artery graft to L PDA. History of hydrocelectomy (01/2004) History of left-sided carotid endarterectomy (2011) History of permanent cardiac pacemaker placement (02/12/22) History of toe surgery History of vascular surgery Bilateral lower extremity stents. Status post surgical removal of malignant neoplasm of skin (2020) Neck. Family History Family History Mother Patient's mother is endometrial cancer? Sibling Patient's brother is Father Acute myocardial infarction Hypertension Social History Social History Social History: Surrogate medical decision maker: Brandon Canales, tracy. Code status: Full code. Smoking packs per day: 1 Smoking cigarettes per day: 20.0 Years smoked: 49 Smoking pack-years: 49.00 Smoking status: Former smoker Tobacco type: cigarettes, pipe and cigars Second hand tobacco smoke exposure: No Smoking end date: 06/15/07 Alcohol intake: current Drinks per week: 3 Alcohol use details:
--- NOTE | 2022-08-28 19:33 | ADMGEN ---
This patient, Peter Canales, was admitted to IMU Room 211-01. Patient/family oriented to hospital policies and general routines including ID bracelet, bed and alarms, visiting hours, pain management, procedures, bathroom and other care routines, personal items, smoking policy, room service/diet, and visiting hours. Information on how to activate the Rapid Response Team has been discussed. Patient/Family are encouraged to report perceived risks to care and to ask questions if they do not understand what they are told or what they should do.
[2022-08-28 20:19] LABS: Troponin I < 0.012 ng/mL (0.000-0.034)
[2022-08-28] MEDS: MORPHINE SULFATE (*CRX) 4 MG/ML INJ 2 MG IV PUSH (21:33)
[2022-08-28] MEDS: HYDROcodone/acetaminophen (*CRX) 5-325 MG TABLET 1 TAB PO (22:33)
[2022-08-28] MEDS: OMEGA 3 POLYUNSAT FATTY ACIDS 1 GM CAP PO (22:33)
[2022-08-28] MEDS: APIXABAN 5 MG TABLET PO (22:33)
[2022-08-28] MEDS: ATORVASTATIN 20 MG TABLET PO (22:33)
[2022-08-28] MEDS: SACUBITRIL/VALSARTAN 24-26 MG TABLET 1 TAB PO (22:36)
[2022-08-28] MEDS: NITROGLYCERIN SL 0.4 MG TABLET SUBLINGUAL (23:27)
[2022-08-29] VITALS (19 sets, daily range): BP systolic 93–142; BP diastolic 51–89; PULSE 66–82; RESP 14–20; TEMP 36.1–36.6; O2SAT 94–100
[2022-08-29 04:40] LABS: Hematocrit 41.1 % (42.0-52.0); Hemoglobin 13.2 g/dL (14.0-18.0); Mean Corpuscular HGB Conc 32.1 g/dl (32-36); Mean Corpuscular Hemoglobin 30.8 pg (26-34); Mean Corpuscular Volume 95.8 fl (80-100); Mean Platelet Volume 9.6 fl (7.4-10.4); Platelet Count Result 178 k/mm3 (150-375); Red Blood Count 4.29 M/mm3 (4.6-6.20); Red Cell Distribution Width 19.8 % (11.5-14.5)
[2022-08-29 04:56] LABS: Anion Gap 8 mmol/L (8-16); Blood Urea Nitrogen 24 mg/dL (9-20); Calcium 8.9 mg/dL (8.4-10.2); Carbon Dioxide 27 mmol/L (22-30); Chloride 104 mmol/L (98-107); Estimated CRCL calculation 50 ml/min; Estimated Glomerular Filt Rate 54; Glucose 137 mg/dL (65-110); Magnesium 1.8 mg/dL (1.6-2.3); Potassium 4.6 mmol/L (3.4-5.0); Sodium 139 mmol/L (137-145)
[2022-08-29] MEDS: LEVOTHYROXINE SODIUM 100 MCG TABLET PO (06:12)
[2022-08-29] MEDS: UMECLIDINIUM BROMIDE 62.5 MCG ELLIPTA 1 PUFF INHALATION (08:15)
[2022-08-29 08:49] LABS: Glucose Point of Care 148 mg/dl (65-105)
[2022-08-29] MEDS: SACUBITRIL/VALSARTAN 24-26 MG TABLET 1 TAB PO ×2 (08:55→20:24)
[2022-08-29] MEDS: TAMSULOSIN HCL 0.4 MG CAPSULE PO (08:55)
[2022-08-29] MEDS: PANTOPRAZOLE 40 MG TABLET PO ×2 (08:55→17:29)
[2022-08-29] MEDS: APIXABAN 5 MG TABLET PO ×2 (08:55→20:24)
[2022-08-29] MEDS: METOPROLOL SUCCINATE EXT REL 25 MG TABCR PO (08:55)
[2022-08-29] MEDS: CHOLECALCIFEROL 1,000 UNITS TABLET 2000 UNITS PO (08:55)
[2022-08-29] MEDS: CLOPIDOGREL BISULFATE 75 MG TABLET PO (08:55)
[2022-08-29] MEDS: CYANOCOBALAMIN 1,000 MCG TABLET 1000 MCG PO (08:56)
[2022-08-29] MEDS: EMPAGLIFLOZIN 10 MG TABLET PO (08:56)
[2022-08-29] MEDS: AMIODARONE HCL 200 MG TABLET 400 MG PO (08:56)
[2022-08-29] MEDS: FINASTERIDE 5 MG TABLET PO (08:56)
[2022-08-29] MEDS: MULTIVITAMINS THERAPEUTIC TAB (*BKC) 1 TABLET PO (08:56)
[2022-08-29] MEDS: FERROUS SULFATE 325 MG TABLET DR PO (08:56)
[2022-08-29] MEDS: OMEGA 3 POLYUNSAT FATTY ACIDS 1 GM CAP PO ×2 (08:56→17:29)
[2022-08-29] MEDS: SPIRONOLACTONE 25 MG TABLET PO (08:57)
[2022-08-29] MEDS: VITAMIN E 100 UNIT CAPSULE 200 UNIT PO (09:56)
--- NOTE | 2022-08-29 10:22 | PM.CNCAR ---
Assessment and Plan Assessment and plan (1) Chest pain: Code(s): R07.9 - Chest pain, unspecified Status: Acute (2) S/P CABG x 3: Code(s): Z95.1 - Presence of aortocoronary bypass graft Status: Acute Plan This is a 76-year-old man known to have severe diffuse coronary artery disease involving the left main stenosis which led to his surgery in January of 2022, 7 months ago. Review of his angiograms however also shows that he has significant small vessel disease and therefore ongoing episodes of ischemic pain are not unexpected. Generally speaking he is not having any exertional angina. Nitroglycerin sublingually did not have any impact on this symptom when he occur experience this yesterday afternoon. He is on a appropriate guideline directed medical therapy for his reduced ejection fraction. He still taking amiodarone at a dosage of 400 mg daily for the atrial fibrillation I do not believe he is having any of that for a number of months. I am going to recommend reducing his amiodarone to 200 mg daily and starting Ranexa 500 mg twice daily to treat his small-vessel coronary artery disease. If he is stable without any symptoms or problems overnight we will consider discharge tomorrow. Given this situation at this point I do not believe we need to initiated new ischemia workup since ischemic symptoms with a lot of small-vessel disease are not surprising Fabien Robertson MD [facility] History of Present Illness History of Present Illness Consult date/time: 08/29/22 10:22 Reason For Visit: chest pain x40 minutes Narrative: This is a very pleasant 76-year-old man that I am seeing at the request of the hospitalist because of an episode of chest pain with a modest rise in his troponin level that was noticed following admission. Patient is known to have severe coronary artery disease and is followed by my partner, Dr. France. I know him from previous consultations here at [facility] in the last 7 months. He states that he was at home in his usual state of health when he started to have some central chest tightness last afternoon. He says this started about 4:00 p.m. the sense was like of dull pressure in the center of the chest that did not radiate any other location there was no associated diaphoresis or dyspnea. He became concerned about the symptoms because of his history. He tried taking nitroglycerin that he has at home for this symptom and it did not provide any relief so he came to the emergency room for evaluation. The total duration of this symptom was something like 30 of 40 minutes and then it subsided. His electrocardiogram in the emergency room did not show any changes of acute ischemia or injury. His troponin levels were negative times the 1st 2 sets but the 3rd set clark slightly to 0.6. He feels well this morning and offers no other complaints. Mr. Spaulding is known to have severe coronary artery disease having presented here with acute coronary syndrome in January of 2022 he was found to have significant left main stenosis involving the ostia of his circumflex as well and he was sent over to [facility] for revascularization. He underwent surgical revascularization and had a somewhat prolonged hospital recovery. His hospital recovery was complicated also by postop atrial fibrillation as well as Ray arrhythmias that necessitated implantation of a pacemaker device. Subsequent all of that he was admitted here at [facility] I believe in May of this year with shortness of breath was found to have decompensated heart failure his left ventricular systolic function was found to be depressed with an ejection fraction of 30-35%. He was started on guideline directed medical therapy for this. He states that in general he does not have any chest pain or symptoms when he exerts although he does not exert heavily. He is able to walk for some distances and has joined a health club where he can e
--- NOTE | 2022-08-29 10:59 | PM.IMPN ---
Progress Note: A&P Assessment and Plan (1) Chest pain: Code(s): R07.9 - Chest pain, unspecified Status: Acute Assessment and Plan: Appreciate cardiology consultation, continue Ranexa, observe (2) Coronary artery disease: Qualifiers: Associated angina: without angina Coronary Disease-Associated Artery/Lesion type: bypass graft [place] vs. transplanted heart: [place] heart Qualified Code(s): I25.810 - Atherosclerosis of coronary artery bypass graft(s) without angina pectoris Code(s): I25.10 - Atherosclerotic heart disease of [place] coronary artery without angina pectoris Status: Acute Assessment and Plan: As above, continue guideline medical therapy (3) Type 2 diabetes mellitus: Qualifiers: Diabetes mellitus complication status: with circulatory complication Diabetes mellitus prison insulin use: without long term acute care registered nurse use Code(s): E11.9 - Type 2 diabetes mellitus without complications Status: Acute Assessment and Plan: Accu-Cheks, sliding scale insulin, check A1c Blood glucose reviewed 08/29 (4) Paroxysmal atrial flutter: Code(s): I48.92 - Unspecified atrial flutter Status: Acute Assessment and Plan: Monitor telemetry (5) Chronic anticoagulation: Code(s): Z79.01 - [facility] (current) use of anticoagulants Status: Acute (6) Congestive heart failure: Qualifiers: Heart failure chronicity: chronic Heart failure type: unspecified Qualified Code(s): I50.9 - Heart failure, unspecified Code(s): I50.9 - Heart failure, unspecified Status: Acute Plan DVT prophylaxis with Eliquis GI prophylaxis not indicated Code status full code Subjective Date/time seen: 08/29/22 10:59 Interval history: 76-year-old male with history of heart disease, AFib status post cardioversion June 03, 2022 on chronic anticoagulation, symptomatic bradycardia status post pacemaker January 2022 as well as diabetes and other comorbidities is presenting with chest pain and currently being treated for angina secondary to ischemia with small-vessel coronary artery disease. No overnight events noted. No shortness of breath. No nausea, vomiting or diarrhea. No fevers or chills. Review of Systems Review of Systems: 12 point review of systems was assessed and was negative except as noted in the HPI Exam Narrative: General: No acute distress, alert and oriented per baseline HEENT: Atraumatic, normocephalic, mucous membranes moist CV: Regular rate and rhythm, S1, S2 Lungs: Clear to auscultation bilaterally, no rales or crackles noted, no wheezes, good air entry Abdomen: Soft, nontender, nondistended Extremities: Normal to inspection Skin: No rashes noted, no lesions or wounds seen Psych: Euthymic, normal affect Objective Data Vital Signs Vital Signs: Vital Signs - 24 hr 08/28/22 16:29 08/28/22 16:30 08/28/22 16:52 Temperature Pulse Rate 80 80 Respiratory Rate 31 H 28 H Blood Pressure 116/66 Pulse Oximetry 98 95 Oxygen Delivery Room Air Oxygen Flow Rate Fraction of Inspired Oxygen 08/28/22 17:00 08/28/22 18:38 08/28/22 19:11 Temperature 97.4 F L Pulse Rate 80 82 80 Respiratory Rate 18 20 17 Blood Pressure 129/77 127/78 118/72 Pulse Oximetry 95 97 97 Oxygen Delivery Oxygen Flow Rate Fraction of Inspired Oxygen 08/28/22 19:12 08/28/22 19:12 08/28/22 19:38 Temperature 97.3 F L Pulse Rate 82 74 Respiratory Rate 18 Blood Pressure 114/98 H Pulse Oximetry 97 100 Oxygen Delivery Room Air Oxygen Flow Rate Fraction of Inspired Oxygen 08/28/22 20:00 08/28/22 23:27 08/28/22 23:32 Temperature Pulse Rate Respiratory Rate Blood Pressure 106/52 L 86/42 L Pulse Oximetry Oxygen Delivery Room Air Oxygen Flow Rate Fraction of Inspired Oxygen 08/28/22 20:00 08/28/22 22:00 08/28/22 23:33 Temp
[2022-08-29] MEDS: RANOLAZINE 500 MG TAB.ER.12H PO ×2 (11:47→20:24)
[2022-08-29 12:19] LABS: Glucose Point of Care 115 mg/dl (65-105)
[2022-08-29 16:44] LABS: Glucose Point of Care 108 mg/dl (65-105)
[2022-08-29 20:15] LABS: Glucose Point of Care 108 mg/dl (65-105)
[2022-08-29] MEDS: ATORVASTATIN 20 MG TABLET PO (20:24)
[2022-08-30] VITALS (12 sets, daily range): BP systolic 104–118; BP diastolic 54–73; PULSE 65–81; RESP 14–18; TEMP 36.6–36.8; O2SAT 95–97
[2022-08-30 04:54] LABS: Basophils Percent Auto 0.5 % (0.2-1.2); Eosinophils Absolute Auto 0.3 K/mm3 (0-0.3); Eosinophils Percent Auto 4.1 % (0-4.4); Hematocrit 40.3 % (42.0-52.0); Hemoglobin 13.3 g/dL (14.0-18.0); Immature Granulocyte Absolute 0.03 K/mm3 (0.00-0.031); Immature Granulocyte Percent A 0.5 % (0-0.5); Lymphocytes Absolute Auto 1.73 K/mm3 (0.9-3.2); Lymphocytes Percent Auto 28.3 % (18.3-44.2); Mean Corpuscular Hemoglobin 30.6 pg (26-34); Mean Corpuscular Volume 92.9 fl (80-100); Mean Platelet Volume 9.8 fl (7.4-10.4); Monocytes Absolute Auto 0.5 K/mm3 (0.1-0.6); Monocytes Percent Auto 8.8 % (2.6-8.5); Neutrophils Absolute Auto 3.5 K/mm3 (1.3-6.7); Neutrophils Percent Auto 57.8 % (45.5-73.1); Platelet Count Result 183 k/mm3 (150-375); Red Blood Count 4.34 M/mm3 (4.6-6.20); Red Cell Distribution Width 19.3 % (11.5-14.5); White Blood Count 6.1 K/mm3 (4.5-10.0)
[2022-08-30 05:15] LABS: Alanine Aminotransferase 37 U/L (6-50); Albumin Level 3.9 g/dL (3.5-5.1); Alkaline Phosphatase 63 U/L (38-126); Anion Gap 10 mmol/L (8-16); Aspartate Amino Transferase 66 U/L (17-59); Bilirubin,Total 0.6 mg/dL (0.2-1.3); Blood Urea Nitrogen 20 mg/dL (9-20); Calcium 8.7 mg/dL (8.4-10.2); Carbon Dioxide 24 mmol/L (22-30); Chloride 104 mmol/L (98-107); Estimated CRCL calculation 58 ml/min; Estimated Glomerular Filt Rate > 60; Glucose 104 mg/dL (65-110); Potassium 4.5 mmol/L (3.4-5.0); Sodium 138 mmol/L (137-145)
[2022-08-30] MEDS: LEVOTHYROXINE SODIUM 100 MCG TABLET PO (06:40)
[2022-08-30 07:37] LABS: Glucose Point of Care 133 mg/dl (65-105)
--- NOTE | 2022-08-30 09:30 | PM.PNCARD ---
Progress Note: A&P Assessment and Plan (1) Chest pain: Code(s): R07.9 - Chest pain, unspecified Status: Acute Assessment and Plan: Most likely secondary to small vessel disease. Ranexa was added to his regimen yesterday and he is no longer experiencing any chest pain. OK for discharge home today with follow up with Dr. France. (2) S/P CABG x 3: Code(s): Z95.1 - Presence of aortocoronary bypass graft Status: Acute Subjective Date/time seen: 08/30/22 09:30 Cardiology follow up for CAD Interval history: He is feeling well this morning. Denies any chest pain. Review of Systems Constitutional: Constitutional: Reports lethargy Eyes: Eyes: Reports no additional eye complaints ENT: Reports system reviewed and no additional complaints, except as documented Cardiovascular: Cardiovascular: Reports as per HPI Respiratory: Respiratory: Reports no additional respiratory complaints Gastrointestinal: Gastrointestinal: Reports no additional gastrointestinal complaints Musculoskeletal: Musculoskeletal: Reports no additional musculoskeletal complaints Integumentary/Breasts: Skin/Breast: Reports system reviewed and no additional complaints, except as docu Neurologic: Reports system reviewed and no additional complaints, except as documented Endocrine: Endocrine: Reports no additional endocrine complaints Hematologic/Lymphatic: Hematologic/Lymphatic: Reports no additional hematologic/lymphatic complaints Allergic/Immunologic: Allergic/Immunologic: Reports no additional allergic/immunologic complaints Exam Const: General: comfortable and no acute distress Other: Pleasant gentleman appearing his stated age she does not report to be in any distress or have any symptoms at this moment HENMT: Mouth: Yes moist mucous membranes Eyes: Sclera: sclerae normal Neck: Neck: supple and no JVD Resp: Effort & Inspection: normal respiratory effort Auscultation: clear to auscultation bilaterally Other: Sternotomy is well healed Cardio: Rate: regular rate Rhythm: regular rhythm Heart sounds: no murmurs GI: Auscultation: normal bowel sounds Skin: General skin exam: normal color Neuro: Other: Alert and oriented x3 Extrem: Other: No edema, good distal pulses Objective Data Vital Signs Vital Signs: Vital Signs - 24 hr 08/29/22 10:00 08/29/22 12:00 08/29/22 12:00 Temperature Pulse Rate 80 80 80 Respiratory Rate 18 Blood Pressure Pulse Oximetry 97 Oxygen Delivery Room Air 08/29/22 12:00 08/29/22 16:00 08/29/22 16:00 Temperature 36.1 C L Pulse Rate 80 66 66 Respiratory Rate 16 16 Blood Pressure 93/51 L Pulse Oximetry 96 96 Oxygen Delivery Room Air 08/29/22 16:00 08/29/22 18:00 08/29/22 20:00 Temperature 36.6 C 36.5 C Pulse Rate 71 73 79 Respiratory Rate 16 18 Blood Pressure 97/58 L 111/62 Pulse Oximetry 94 97 Oxygen Delivery 08/29/22 20:00 08/29/22 20:00 08/29/22 23:02 Temperature 36.6 C Pulse Rate 80 80 Respiratory Rate 20 Blood Pressure 142/89 H Pulse Oximetry 97 Oxygen Delivery Room Air 08/29/22 22:00 08/29/22 23:53 08/30/22 00:00 Temperature Pulse Rate 80 65 Respiratory Rate Blood Pressure Pulse Oximetry Oxygen Delivery Room Air 08/30/22 02:00 08/30/22 04:00 08/30/22 04:00 Temperature Pulse Rate 67 66 Respiratory Rate Blood Pressure Pulse Oximetry Oxygen Delivery Room Air 08/30/22 04:00 08/30/22 06:00 08/30/22 07:40 Temperature 36.6 C 36.8 C Pulse Rate 68 66 80 Respiratory Rate 18 14 Blood Pressure 104/54 L 118/73 Pulse Oximetry 97 95 Oxygen Delivery 08/30/22 08:00 Temperature Pulse Rate 80 Respiratory Rate Blood Pressure Pulse Oximetry Oxygen Delivery Intake/Output Intake/Output: Intake & Output 08/27/22 08/28/22 08/29/22 08/30/22 23:59 23:59 23:59 23:59 Intake Total 2330 640 Output Total 175 1600 800
[2022-08-30] MEDS: APIXABAN 5 MG TABLET PO (09:35)
[2022-08-30] MEDS: AMIODARONE HCL 200 MG TABLET PO (09:35)
[2022-08-30] MEDS: CYANOCOBALAMIN 1,000 MCG TABLET 1000 MCG PO (09:36)
[2022-08-30] MEDS: FERROUS SULFATE 325 MG TABLET DR PO (09:36)
[2022-08-30] MEDS: CLOPIDOGREL BISULFATE 75 MG TABLET PO (09:36)
[2022-08-30] MEDS: CHOLECALCIFEROL 1,000 UNITS TABLET 2000 UNITS PO (09:36)
[2022-08-30] MEDS: EMPAGLIFLOZIN 10 MG TABLET PO (09:36)
[2022-08-30] MEDS: FINASTERIDE 5 MG TABLET PO (09:37)
[2022-08-30] MEDS: METOPROLOL SUCCINATE EXT REL 25 MG TABCR PO (09:37)
[2022-08-30] MEDS: OMEGA 3 POLYUNSAT FATTY ACIDS 1 GM CAP PO (09:37)
[2022-08-30] MEDS: MULTIVITAMINS THERAPEUTIC TAB (*BKC) 1 TABLET PO (09:37)
[2022-08-30] MEDS: TAMSULOSIN HCL 0.4 MG CAPSULE PO (09:38)
[2022-08-30] MEDS: SACUBITRIL/VALSARTAN 24-26 MG TABLET 1 TAB PO (09:38)
[2022-08-30] MEDS: SPIRONOLACTONE 25 MG TABLET PO (09:38)
[2022-08-30] MEDS: RANOLAZINE 500 MG TAB.ER.12H PO (09:38)
[2022-08-30] MEDS: PANTOPRAZOLE 40 MG TABLET PO (09:38)
[2022-08-30] MEDS: VITAMIN E 100 UNIT CAPSULE 200 UNIT PO (09:38)
--- NOTE | 2022-08-30 10:16 | PM.DS ---
DS: Admitting Diagnosis Discharge Date 08/30/22 Admitting Diagnosis chest pain DS: Discharge Diagnosis Discharge Diagnosis (1) Chest pain: Code(s): R07.9 - Chest pain, unspecified Status: Acute Assessment and Plan: Appreciate cardiology consultation, continue Ranexa, observe (2) Coronary artery disease: Qualifiers: Associated angina: without angina Coronary Disease-Associated Artery/Lesion type: bypass graft [place] vs. transplanted heart: [place] heart Qualified Code(s): I25.810 - Atherosclerosis of coronary artery bypass graft(s) without angina pectoris Code(s): I25.10 - Atherosclerotic heart disease of [place] coronary artery without angina pectoris Status: Acute Assessment and Plan: As above, continue guideline medical therapy (3) Type 2 diabetes mellitus: Qualifiers: Diabetes mellitus complication status: with circulatory complication Diabetes mellitus intermediate project manager insulin use: without intermediate project manager use Code(s): E11.9 - Type 2 diabetes mellitus without complications Status: Acute Assessment and Plan: Accu-Cheks, sliding scale insulin, check A1c Blood glucose reviewed 08/29 (4) Paroxysmal atrial flutter: Code(s): I48.92 - Unspecified atrial flutter Status: Acute Assessment and Plan: Monitor telemetry (5) Chronic anticoagulation: Code(s): Z79.01 - skilled nursing (current) use of anticoagulants Status: Acute (6) Congestive heart failure: Qualifiers: Heart failure chronicity: chronic Heart failure type: unspecified Qualified Code(s): I50.9 - Heart failure, unspecified Code(s): I50.9 - Heart failure, unspecified Status: Acute Plan DVT prophylaxis with Eliquis GI prophylaxis not indicated Code status full code DS: Summary Hospital Course Hospital Course: 76-year-old male with history of heart disease, AFib status post cardioversion June 03, 2022 on chronic anticoagulation, symptomatic bradycardia status post pacemaker January 2022 as well as diabetes and other comorbidities is presenting with chest pain and currently being treated for angina secondary to ischemia with small-vessel coronary artery disease. Cardiology was consulted and recommended decreasing the amiodarone from 400 mg to 200 mg daily in adding Ranexa 500 mg twice daily. This was achieved in patient's symptoms resolved. Therefore he was discharged in stable condition with close outpatient follow-up by Cardiology. Please see above and med rec for details. Time Spent with Patient Time attestation: Total time spent providing and/or coordinating discharge services: Exam Narrative: General: No acute distress, alert and oriented per baseline HEENT: Atraumatic, normocephalic, mucous membranes moist CV: Regular rate and rhythm, S1, S2 Lungs: Clear to auscultation bilaterally, no rales or crackles noted, no wheezes, good air entry Abdomen: Soft, nontender, nondistended Extremities: Normal to inspection Skin: No rashes noted, no lesions or wounds seen Psych: Euthymic, normal affect DS: Data Data Completed and Pending Labs on day of discharge: Labs from last 24 hours 08/30/22 08/30/22 08/29/22 07:22 04:30 20:07 WBC 6.1 RBC 4.34 L Hgb 13.3 L Hct 40.3 L MCV 92.9 MCH 30.6 MCHC 33.0 RDW 19.3 H Plt Count 183 MPV 9.8 Immature Gran % (Auto) 0.5 Neut % (Auto) 57.8 Lymph % (Auto) 28.3 [place] % (Auto) 8.8 H Eos % (Auto) 4.1 Baso % (Auto) 0.5 Lymph # (Auto) 1.73 [place] # (Auto) 0.5 Eos # (Auto) 0.3 Baso # (Auto) 0.0 Abs Immat Gran (auto) 0.03 Absolute Neuts (auto) 3.5 Absolute Nucleated RBC 0.0 Nucleated RBC % 0.0 Sodium 138 Potassium 4.5 Chloride 104 Carbon Dioxide 24 Anion Gap 10 BUN 20 Creatinine 1.10 Estim Creat Clear Calc 58 Estimated GFR > 60 Glucose 104 POC Capillary Gluco
[2022-08-30] MEDS: UMECLIDINIUM BROMIDE 62.5 MCG ELLIPTA 1 PUFF INHALATION (10:52)
[2022-08-30 11:42] LABS: Glucose Point of Care 125 mg/dl (65-105)
== END 2022-08-30 13:58 | disposition home or self-care (01) ==
LOC: ANHED 16:42 → ANHIMU 19:28
PROVIDERS: Physician Assistant; Admitting Provider Internal Medicine; Emergency Provider Emergency Medicine; PCP Family Medicine Adolescent Medicine; Visit Provider Student in an Organized Health Care Education/Training Program
DX: R07.9 Chest pain, unspecified (principal); I25.810 Atherosclerosis of coronary artery bypass graft(s) without angina pectoris; E11.51 Type 2 diabetes mellitus with diabetic peripheral angiopathy without gangrene; I48.92 Unspecified atrial flutter; I11.0 Hypertensive heart disease with heart failure; I50.9 Heart failure, unspecified; N40.1 Benign prostatic hyperplasia with lower urinary tract symptoms; R35.1 Nocturia; J44.9 Chronic obstructive pulmonary disease, unspecified; K21.9 Gastro-esophageal reflux disease without esophagitis; J98.11 Atelectasis; R00.1 Bradycardia, unspecified; G47.33 Obstructive sleep apnea (adult) (pediatric); I73.9 Peripheral vascular disease, unspecified; R94.31 Abnormal electrocardiogram [ECG] [EKG]; Z98.62 Peripheral vascular angioplasty status; Z95.0 Presence of cardiac pacemaker; Z99.89 Dependence on other enabling machines and devices; F10.90 Alcohol use, unspecified, uncomplicated; Z87.891 Personal history of nicotine dependence; Z86.79 Personal history of other diseases of the circulatory system; Z79.01 Long term (current) use of anticoagulants; Z79.02 Long term (current) use of antithrombotics/antiplatelets; Z79.84 Long term (current) use of oral hypoglycemic drugs; Z79.899 Other long term (current) drug therapy
CPT/HCPCS: 36415; 71046; 80048; 80053; 82948; 83735; 83880; 84484; 85025; 85027; 85610; 85730; 93005; 94640; 96374; 96376; 99285; A9270; G0378; J2270

== ENCOUNTER 2023-01-04 01:16 | Day surgery (SDC) | payer OTHER, SELFPAY ==
[2023-01-03 16:57] VITALS: BMI 28.8
[2023-01-04] VITALS (7 sets, daily range): BP systolic 124–153; BP diastolic 68–88; PULSE 70–71; RESP 15–28; TEMP 36.8; O2SAT 92–99; BMI 29.4
--- NOTE | 2023-01-04 | ECG_ITS ---
Measurements Intervals [place] Rate: 71 P: [place]: 0 QRS: -86 QRSD: 159 T: 85 QT: 469 QTc: 511 Interpretive Statements ELECTRONIC VENTRICULAR PACEMAKER UNDERLYING ATRIAL FLUTTER/TACHYCARDIA BASELINE ARTIFACT- I, II, III, AVL, AVF, V6 NO FURTHER INTERPRETATION IS POSSIBLE ABNORMAL ECG COMPARED TO ECG 08/28/2022 16:26:42 UNDERLYING ATRIAL FLUTTER/TACHYCARDIA NOW PRESENT Electronically Signed On 01-07-2023 10:22:22 SALES TECHNICIAN by Cholo Lopez D.O.
--- NOTE | 2023-01-04 08:30 | ECG_ITS ---
Measurements Intervals [place] Rate: 70 P: 215 OR: 348 QRS: 1 QRSD: 92 T: -65 QT: 418 QTc: 453 Interpretive Statements ELECTRONIC ATRIAL PACEMAKER LOW QRS VOLTAGE IN LIMB LEADS ST-T WAVE ABNORMALITY IN ANT/INF LEADS- CONSIDER ISCHEMIA ABNORMAL ECG COMPARED TO ECG 01/04/2023 08:46:31 ELECTRONIC ATRIAL PACEMAKER NOW PRESENT Electronically Signed On 01-04-2023 9:42:32 BRICKLAYER APPRENTICE by Cholo Lopez D.O.
--- NOTE | 2023-01-04 08:48 | WPDHPUPDATE1 ---
History and Physical Update Update Date/Time: 01/04/23 08:48 History and Physical has been reviewed, including an updated exam of the patient. There are NO changes in the patient's condition. Risks, benefits, and alternatives have been discussed and questions answered. Patient agrees to proceed with procedure.
--- NOTE | 2023-01-04 08:48 | WPDMODSED ---
Moderate Sedation Note-Pt Data Patient Data Diagnosis: Atrial fibrillation Present Complaint: Atrial fibrillation Procedure to be performed/Plan: Cardioversion Allergies Allergy/AdvReac Type Severity Reaction Status Date / Time No Known Allergies Allergy Verified 01/04/23 08:40 Home Medications Medication Instructions Recorded Confirmed Type cholecalciferol (vitamin D3) 50 50 mcg PO DAILY 02/04/21 09/15/22 History mcg (2,000 unit) tablet [id number] 1 tablet PO BID 02/04/21 09/15/22 History 750 mg-100 mg-125 mg-1.65 mg tablet (Glucosamine Chondroit Complx Advan) multivitamin 1 tablet PO DAILY 02/04/21 09/15/22 History clopidogrel 75 mg tablet (Plavix) 75 mg PO DAILY 01/19/22 09/15/22 History omega 1-qpg-vmt-fish oil 1,200 mg 1 cap PO BID 01/19/22 09/15/22 History (144 mg-216 mg) capsule (Fish Oil) apixaban 5 mg tablet 5 mg PO BID 03/03/22 09/15/22 History finasteride 5 mg tablet 5 mg PO DAILY #90 tabs 05/12/22 09/15/22 Rx cyanocobalamin (vitamin B-12) 1,000 mcg PO DAILY 06/05/22 09/15/22 History 1,000 mcg tablet tiotropium bromide 2.5 1 inh inhalation QID 06/05/22 09/15/22 History mcg/actuation mist for inhalation vitamin E 200 unit capsule 200 unit PO DAILY 06/05/22 09/15/22 History ferrous sulfate 325 mg (65 mg 325 mg PO DAILY #90 tabs 06/15/22 09/15/22 Rx iron) tablet (FeroSul) metoprolol succinate 25 mg 25 mg PO QAM #30 tabs 07/05/22 09/15/22 Rx tablet,extended release 24 hr (Toprol XL) nitroglycerin 0.4 mg sublingual 0.4 mg sublingual Q5M PRN chest 07/05/22 09/15/22 Rx tablet pain #100 tabs sacubitril 24 mg-valsartan 26 mg 1 tablet PO Q12HR #60 tabs 07/05/22 09/15/22 Rx tablet (Entresto) omeprazole 40 mg capsule,delayed 40 mg PO DAILY #90 caps 08/06/22 09/15/22 Rx release atorvastatin 40 mg tablet 20 mg PO QHS 08/28/22 09/15/22 History spironolactone 25 mg tablet 25 mg PO DAILY 08/28/22 09/15/22 History (Aldactone) ranolazine 500 mg tablet,extended 500 mg PO Q12H 1 month #60 tabs 08/30/22 09/15/22 Rx release,12 hr levothyroxine 112 mcg tablet 112 mcg PO DAILY #90 tabs 10/04/22 Rx tamsulosin 0.4 mg capsule 0.4 mg PO DAILY #90 caps 12/09/22 Rx Current Medications: Active Medications Sodium Chloride (Normal Saline Iv) 1,000 mls @ 30 mls/hr IV CONT .Q24H YARIEL Sedation/Anesthesia: No previous sedation/anesthesia problems (including family history). [facility] Past Medical History Medical History Actinic keratitis Adenomatous colon polyp Arthritis Benign prostatic hyperplasia with nocturia Chronic obstructive pulmonary disease, unspecified Coronary artery disease Essential hypertension Gastroesophageal reflux disease History of kidney stones Ischemic cardiomyopathy Ejection fraction 35 to 40% per TTE 03/2022. Non-ST elevation SD (NSTEMI) Obstructive sleep apnea Intolerant to CPAP. Paroxysmal atrial fibrillation Paroxysmal atrial flutter Peripheral vascular disease Symptomatic bradycardia (01/2022) Status post permanent pacemaker insertion. Type 2 diabetes mellitus Surgical History Surgical History History of angioplasty (2021) History of cardiac catheterization History of carpal tunnel release (2015) History of cataract extraction with lens replacement (2019) History of colonoscopy (10/2021) History of coronary artery bypass graft x 3 (02/02/22) LEA to LAD, SVG to obtuse marginal, radial artery graft to L PDA. History of hydrocelectomy (01/2004) History of left-sided carotid endarterectomy (2011) History of permanent cardiac pacemaker placement (02/12/22) History of toe surgery History of vascular surgery Bilateral lower extremity stents. Status post surgical removal of malignant neoplasm of skin (2020) Neck. Family History Family History Mother
--- NOTE | 2023-01-04 08:49 | WPDCARDVER ---
Cardioversion Cardioversion Date of procedure: 01/04/23 Procedure: Synchronized electrical cardioversion Pre-op diagnosis: Atrial fibrillation Post-op diagnosis: Other (Sinus rhythm) Indications: Atrial fibrillation Description of procedure: Patient [facility]. Written informed consent obtained. Defibrillator pads placed in an anterior-posterior position. Time out performed by BRANDEE Layne. Total of Propofol 40mg IV was administered by me. Once patient was adequately sedated, synchronized cardioversion was performed with 1 shock at 250 joules restoring sinus rhythm. Patient was hemodynamically monitored throughout. No periprocedural complications. Sedation: Total of Propofol 40mg IV Findings: Successful cardioversion to sinus rhythm with 1 shock at 250 joules Conclusion: Successful cardioversion to sinus rhythm with 1 shock at 250 joules
[2023-01-04 09:07] LABS: Anion Gap 12 mmol/L (8-16); Blood Urea Nitrogen 19 mg/dL (9-20); Calcium 8.9 mg/dL (8.4-10.2); Carbon Dioxide 23 mmol/L (22-30); Chloride 106 mmol/L (98-107); Estimated CRCL calculation 45 ml/min; Estimated Glomerular Filt Rate 49; Glucose 120 mg/dL (65-110); Potassium 4.3 mmol/L (3.4-5.0); Sodium 141 mmol/L (137-145)
--- NOTE | 2023-01-04 10:30 | ECG_ITS ---
Measurements Intervals [place] Rate: 72 P: [place]: 0 QRS: -89 QRSD: 136 T: 83 QT: 441 QTc: 484 Interpretive Statements ELECTRONIC VENTRICULAR PACEMAKER WITH INHIBITION UNDERLYING ATRIAL FLUTTER/TACHYCARDIA RIGHT BUNDLE BRANCH BLOCK ST-T WAVE ABNORMALITY IN ANTEROLAT/INF LEADS- CONSIDER ISCHEMIA BASELINE ARTIFACT- I, II, III, AVF ABNORMAL ECG COMPARED TO ECG 08/28/2022 16:26:42 ELECTRONIC VENTRICULAR PACEMAKER WITH INHIBITION NOW PRESENT UNDERLYING ATRIAL FLUTTER/TACHYCARDIA NOW PRESENT ST-T WAVE ABNORMALITY NOW PRESENT Electronically Signed On 01-04-2023 9:06:38 TWISTHAND by Cholo Lopez D.O.
== END 2023-01-04 10:30 | disposition home or self-care (01) ==
PROVIDERS: PCP Family Medicine Adolescent Medicine; Visit Provider Internal Medicine
PROC: 5A2204Z Restoration of Cardiac Rhythm, Single (ICD-10-PCS; principal; 2023-01-04 10:00)
DX: I48.0 Paroxysmal atrial fibrillation (principal); I25.5 Ischemic cardiomyopathy; Z79.01 Long term (current) use of anticoagulants; Z95.0 Presence of cardiac pacemaker; I11.0 Hypertensive heart disease with heart failure; I50.22 Chronic systolic (congestive) heart failure; I25.10 Atherosclerotic heart disease of native coronary artery without angina pectoris; Z95.1 Presence of aortocoronary bypass graft; E11.9 Type 2 diabetes mellitus without complications; Z79.84 Long term (current) use of oral hypoglycemic drugs; Z79.82 Long term (current) use of aspirin
CPT/HCPCS: 36415; 80048; 83735; 92960; 93005; J2704; J7030

== ENCOUNTER 2024-10-31 10:03 | Outpatient (CLI) | payer OTHER, SELFPAY ==
--- NOTE | ~2024-10-31 | XR_ITS ---
XR lumbar spine 2-3V Indication: Non-radiating low back pain Comparison: None Findings: Moderate loss of vertebral height throughout, no fracture or subluxation. Moderate to severe loss of disc height L3-4, L4-5 and L5-S1 Soft tissues unremarkable Impression: No acute abnormality. Reviewed, dictated and finalized at location A. Impression: No acute abnormality.
--- OUTSIDE RECORDS SUMMARY | 2024-10-31 11:12 | XMS_ITS | Clinical Summary ---
Author Organization [facility] Address [facility] [place] [address] Care Team Providers Care Vp Security Name Role Phone Unavailable Primary Care Provider Unavailabl e Social History Tobacco Use Types Packs/Day Years Used Date Smoking Tobacco: Never Assessed Sex and Gender Information Value Date Recorded Sex Assigned at Not on file Legal Sex Male 8:33 PM CDT Gender Identity Not on file Sexual Orientation Not on file Last Filed Vital Signs Vital Sign Reading Time Taken Comments Blood Pressure 138/64 04/08/2016 1:34 PM RESIDENTIAL SOLAR SALES CONSULTANT Pulse 69 04/08/2016 1:34 PM RESIDENTIAL SOLAR SALES CONSULTANT Temperature - - Respiratory Rate - - Oxygen Saturation - - Inhaled Oxygen Concentration - - Weight 106.1 kg (234 lb) 04/08/2016 1:34 PM RESIDENTIAL SOLAR SALES CONSULTANT Height 188 cm (6' 2) 04/08/2016 1:34 PM RESIDENTIAL SOLAR SALES CONSULTANT Body Mass Index 30.04 04/08/2016 1:34 PM RESIDENTIAL SOLAR SALES CONSULTANT Plan of Treatment Health Maintenance Due Date Last Done Comments Hepatitis C 1963 DTaP, Tdap and Td Vaccines ( 1 - Tdap) 12/28/1964 Pneumococcal Vaccine: 50+ Ye ars (1 of 1 - PCV) 1994 Zoster Vaccines (1 of 2) 1994 RSV Immunization or 60+ Years (1 - 1-dose 75+ series) 12/28/2019 COVID-19 Vaccine ( - 2023-2 5 season) 2024 Meningococcal B Vaccine Aged Out No l onger eligible based on patient's age to complete this topic Meningococcal Vaccine Aged Out No eun erik eligible based on patient's age to complete this topic RSV Immunizations Under 20 Months Aged Out No longer eligible based on patient's age to complete this topic
--- OUTSIDE RECORDS SUMMARY | 2024-10-31 11:12 | XMS_ITS | Clinical Summary ---
Author Organization [facility] Address [address] [place] [address] Care Team Providers Care Airworthiness Inspector Name Role Phone Michael Ramires MD Unavailable Elisabeth Bravo MD Unavailable [phone] Sanjiv Wnag MD Primary Care Prov ider Allergies No known active allergies Medications cholecalciferol (VITAMIN D-3) 2000 unit tablet Take 1 tablet (2,000 Units total) by mouth nightly Active [id number] ORAL Take by mouth 2 (two) times a day 750mg-100mg- 125mg Active multivitamin capsule Take 1 capsule by mouth daily Active clopidogreL (PLAVIX) 75 mg tablet Take 1 tablet (75 mg total) by mouth daily Active vitamin E (AQUASOL E) 200 unit capsule Take 1 capsule (200 Units total) by mouth nightly Active finasteride (PROSCAR) 5 mg tablet Take 1 tablet (5 mg total) by mouth daily 11/07/2021 Active tamsulosin (FLOMAX) 0.4 mg extended release capsule Take by mouth daily 12/21/2021 Active cyanocobalamin (Vitamin B-12) 1,000 mcg tabletIndicatio ns:Prevention of Vitamin B12 Deficiency Take 1 tablet (1,000 mcg total) by mouth nightly Active Eliquis 5 mg tablet TAKE 1 TABLET BY MOUTH EVERY 12 HOURS 60 tablet 1 06/07/2022 Active levothyroxine (SYNTHROID) 100 mcg tablet Take 1 tablet (100 mcg total) by mouth daily 06/21/2022 Active atorvastatin (LIPITOR) 40 mg tablet Take 0.5 tablets (20 mg total) by mouth nightly 06/15/2022 Active omeprazole (PriLOSEC) 40 mg capsule Take 1 capsule (40 mg total) by mouth with lunch 05/11/2021 Active nitroglycerin (NITROSTAT) 0.[address] 1 tablet (0.4 mg total) under the tongue every 5 (five) minutes as needed 01/07/2023 Active empagliflozin (JARDIANCE) 25 mg tablet Take 0.5 tablets (12.5 mg total) by mouth 07/04/2023 Active metoprolol XL (TOPROL-XL) 25 mg extended release tablet Take 1 tablet (25 mg total) by mouth every morning 07/23/2023 Active sacubitriL-vals clarke (ENTRESTO) 24-26 mg tablet Take by mouth 07/04/2023 Active tiotropium bromide (SPIRIVA RESPIMAT) 2.5 mcg/actuation inhaler Inhale 07/04/2023 Active Active Problems Problem Noted Date Diagnosed Date Heart failure with mildly re duced ejection fraction (HFmrEF) 12/29/2023 Primary hypertension 12/29/2023 Hyperlipidemia 12/29/2023 A-fib 01/19/2023 Atrial flutter 12/22/2022 At risk for amiodarone toxicity with salvage determiner u se 11/02/2022 Ischemic cardiomyopathy 07/02/2022 Heart failure with reduced ejection fraction Hx of CABG 06/04/2022 Shortness of breath 06/04/2022 Paroxysmal atrial fibrillation 03/29/2022 Cardiac pacemaker in situ 02/16/2022 Overview (11/01/2022): Medtronic Bella Dual Pacemaker. Dx; Sinus Node Dysfunction, Bradycardia, Postop Afib. DOI 02/12/2022-Ike. Carelink remote monitoring. Bradycardia 02/11/2022 Coronary artery disease invo lving [place] coronary artery of [place] heart without angina pectoris 01/26/2022 Encounters Date Type Department Care Team Description 09/05/2024 9:45 AM CDT Ancillary Procedure [facility] Medical Group Cardiology [address], [place] [address] Paroxysmal atrial fibrillation (HCC) (Primary Dx); Cardiac pacemaker in situ; Bradycardia; Sinoatrial node dysfunction (HCC) 08/13/2024 10:15 AM CDT Office Visit [facility] Medical [facility] Cardiology [address] [place] [address] Zoltan Luna MD Coronary artery disease involving [place] coronary artery of [place] heart without angina pectoris (Primary Dx); Paroxysmal atrial fibrillation (HCC); Ischemic cardiomyopathy; Cardiac pacemaker in situ from Last 3 Months Surgical History Surgery Date Site/Laterality Comments CARPAL TUNNEL RELEASE Bilateral CATARACT EXTRACTION W/ INTRA OCULAR LENS IMPLANT Bilateral CORONARY ARTERY BYPASS GRAFT CARDIAC PACEMAKER PLACEMENT Medtronic TOE SURGERY Right great toe TESTICLE SURGERY CAROTID ENARTERECTOMYY 02/14/2011 - 02/14/2012 Left SKIN CANCER EXCISION PERIPHERAL ARTERIAL STENT GRAFT Right CARDIAC CATHETERIZATION X 3 Medical History Medical History Date Comments Hx of CABG 02/02/2022 Diabetes (HCC) PVD (peripheral vascular disease) High cholesterol Pacemaker 02/12/2022 Hypertension Arthritis GERD (gastroesophageal reflux disease) 3 years a go Cancer (HCC) 2020 Skin cancer on n [place] Cataract 2020 Heart disease 2021 Coronary artery disease Myocardial infarction (HCC) Atrial fibrillation (HCC) CHF (congestive heart failure) (HCC) Kidney stone years ago BPH (benign prostatic hyperplasia) Hypothyroidism Hearing loss bilateral hearin g aids Family History Medical History Relation Name Comments Cancer Brother Daniel Heart attack Father Pj Hypertension Father Pj Cancer Mother Opal Relation Name Status Comments Brother Daniel Father Pj Mother Opal Social History Tobacco Use Types Packs/Day Years Used Date Smoking Tobacco: Former Cigarettes Smokeless Tobacco: Never Tobacco Cessation:Counseling Given: Not Answered Comments:Stopped about 16 years ago OASIS D0700: Social Isolation Answer Da te Recorded Frequency of experiencing loneliness or isolatio n Never 03/30/2022 OASIS A1250: Transportation Answer Date Recorded Lack of Transportation (Medical) No 03/30/2022 Lack of Transportation (Non-Medical) No 03/30/2022 Patient Unable or Declines to Respond No 03/30/2022 OASIS B1300: Health Literacy Answer Owen e Recorded Frequency of needing help to read materials from doctor or pharmacy Never 03/30/2022 Social Connection and Isolation Panel Answer Date Recorded In a typical week, how many times do you talk on the phone with family, friends, or neighbors? More than three times a week 01/27/2022 How often do you get togethe r with friends or relatives? Twice a week 01/27/2022 How often do you attend chur or nondenominational services? Patient declined 01/27/2022 Do you belong to any clubs o r organizations such as protestant groups, unions, fraternal or athletic groups, or school groups? Patient declined 01/27/2022 How often do you attend meet ings of the clubs or organizations you belong to? Patient declined 01/27/2022 Are you , , di vorced, , never , or living with a partner? 01/27/2022 AUDIT-C Answer Date Recorded Q1: How often do you have a drink containing alc ohol? Monthly or less 01/19/2023 Q2: How many drinks containi ng alcohol do you have on a typical day when you are drinking? 1 or 2 01/19/2023 Q3: How often do you have si x or more drinks on one occasion? Never 01/19/2023 Overall Financial Resource Strain (CARDIA) Answe r Date Recorded How hard is it for you to pa y for the very basics like food, housing, medical care, and heating? Not hard at all 01/27/2022 Hunger Vital Sign Answer Date Recorded Within the past 12 months, y ou worried that your food would run out before you got the money to buy more. Never true 01/28/20 22 Within the past 12 months, t he food you bought just didn't last and you didn't have money to get more. Never true 01/27/2022 PRAPARE - Transportation Answer Date Re corded In the past 12 months, has l ack of transportation kept you from medical appointments or from getting medications? No 01/14 In the past 12 months, has l ack of transportation kept you from meetings, work, or from getting things needed for daily living? No 01/27/2022 Housing Stability Vital Sign Answer Owen e Recorded In the last 12 months, was t here a time when you were not able to pay the mortgage or rent on time? No 01/27/2022 In the last 12 months, how many places have you lived? 1 01/27/2022 In the last 12 months, was t here a time when you did not have a steady place to sleep or slept in a snf (including now)? No 01/27/2022 Personal Safety Answer Date Recorded Have you ever been in or are you currently in a harmful physical or emotional relationship or is someone making you feel afraid or unsafe? Denies 01/19/2023 Sex and Gender Information Value Date Recorded Sex Assigned at Not on file Legal Sex Male 6:02 PM FAST FOOD SUPERVISOR Gender Identity Male 02/18/2022 12:40 AM FAST FOOD SUPERVISOR Sexual Orientation Straight 02/18/2022 12 :40 AM FAST FOOD SUPERVISOR Obstetrics History Last Filed Vital Signs Vital Sign Reading Time Taken Comments Blood Pressure 122/62 08/13/2024 10:04 AM CDT Pulse 81 08/13/2024 10:04 AM CDT Temperature 36.7 C (98.1 F) 01/19/2023 12:10 PM FAST FOOD SUPERVISOR Respiratory Rate 14 10/25/2023 7:50 AM CDT Oxygen Saturation 97% 08/13/2024 10:04 AM CDT Inhaled Oxygen Concentration - - Weight 102.1 kg (225 lb) 08/13/2024 10:04 AM CDT Height 188 cm (6' 2) 08/13/2024 10:04 AM CDT Body Mass Index 28.89 08/13/2024 10:04 AM CDT Plan of Treatment Health Maintenance Due Date Last Done Comments Depression Screening 1945 Hepatitis C Screening 1945 Hepatitis B Screening 1962 Well Visit 65+ 2009 Fall Risk Assessment 02/23/2024 02/22/2023, 01/19/2023, 12/21/2022 Covid-19 Vaccine (2024- 6 season) 2024 11/11/2021, 12/31/2020, 04/03/2020, Additional history exists Influenza Vaccine (#1) 2024 , 01/03/2023, 11/14/2021, Additional history exists DTaP/Tdap/Td Vaccine (4 - Td or Tdap) 07/03/2033 07/04/2023, 10/12/2012, 09/14/2012 Pneumococcal vaccine 65+ Completed 017, 01/16/2015, 05/30/2014, Additional history exists Zoster Vaccine Completed 04/16/2024, 04/15, 08/30/2018, Additional history exists Medical Devices Implanted Type Area Multiple Resaw Operator Device Identifier Shelf Expiration Date Model / Serial / Lot Medtronic Inc Capsurefix Novus 6.2fr 2mm 52cm Bipolar Screw In Implantable Latex Free 5076-52 - [id number] - [id number] Implanted:Qty: 1 on 02/12/2022 by Michael Ramires MD at [facility] Lead Medtronic Inc 11/14/2023 5076-52 / [id number] / Description:RA lead Medtronic Inc Capsurefix Novus 6.2fr 2mm 58cm Bipolar Screw In Implantable 5076-58 - [id number] - [id number] Implanted:Qty: 1 on 02/12/2022 by Michael Ramires MD at [facility] Lead Medtronic Inc 11/21/2023 5076-58 / [id number] / Description:RV lead Medtronic Inc [place] S Mri Surescan 50.8x46.6mm 2 Chamber 7.4mm Pacemaker 22.5gm [id number] - [id number] - [id number] Implanted:Qty: 1 on 02/12/2022 by Michael Ramires MD at [facility] Pacemaker Medtronic Inc 06/12/2023 [id number] / [id number] / Doron Medical Plate Bone Low Profile 6 Hole H Shape Ti 115.102.06 - [id number] Implanted:Qty: 1 on 02/02/2022 by Ursula Yuan MD at [facility] Plate N/A: Chest Wall [employer] Inc 115.102.0 6 / / Doron Medical Plate Bone Low Profile 4 Hole Box Ti 115.103.04 - [id number] Implanted:Qty: 1 on 02/02/2022 by Ursula Yuan MD at [facility] Plate N/A: Chest Wall [employer] Inc 115.103.0 4 / / Doron Medical Plate Bone Low Profile 6 Hole O Concave Ti 115.604.06 - [id number] Implanted:Qty: 1 on 02/02/2022 by Ursula Yuan MD at [facility] Plate N/A: Chest Wall [employer] Inc 115.604.0 6 / / Doron Medical Screw Bone Slf Drl Full Thread Locking 3.5x16mm Ti 100.035.16 - [id number] Implanted:Qty: 16 on 02/02/2022 by Ursula Yuan MD at [facility] Screw N/A: Chest Wall [employer] Inc 100.035.1 6 / / Access Closure Inc Mynx Control 6-7fr 2 Mode Balloon Catheter Sealant Lock Syringe [id number] - [id number] Implanted:Qty: 1 on 01/28/2022 by Fortino Rico MD at [facility] Access Closure Inc 01/14/2024 [id number] / / [id number] Cardiva Medical Inc Vascade Mvp 6-12fr Venous Closure [id number] - [id number] Implanted:Qty: 1 on 01/19/2023 by Michael Ramires MD at [facility] Medical [facility] 10/21/2024 800-612C- 10U / / [id number] Cardiva Medical Inc Vascade Mvp 6-12fr Venous Closure [id number] - [id number] Implanted:Qty: 1 on 01/19/2023 by Michael Ramires MD at [facility] Medical Inc 10/21/2024 800-612C- 10U / / [id number] Cardiva Medical Inc Vascade Mvp 6-12fr Venous Closure [id number] - [id number] Implanted:Qty: 1 on 01/19/2023 by Michael Ramires MD at [facility] Medical [facility] 10/21/2024 800-612C- 10U / / [id number] Procedures Procedure Name Priority Date/Time Associated Diagnosis Comments DEVICE CHECK - REMOTE Routine 09/05/2024 8:28 AM CDT Cardiac pacemaker in situ Bradycardia Sinoatrial node dysfunction (HCC) from Last 3 Months Results * DEVICE CHECK - REMOTE (09/05/2024 8:28 AM CDT) Anatomical Region Laterality Modality Other Narrative 10/11/2024 3:28 PM CDT Medtronic [place] Dual Pacemaker. Dx; Sinus Node Dysfunction, Bradycardia, Postop Afib. DOI 02/12/2022-Ike. Carelink remote monitoring. Routine AAIR < > DDDR Pacemaker Remote. Transmission attached. Battery status: 3.02 V , 11.0 years remaining battery life to CHARISMA. Stable lead impedances, pacing and sensing thresholds. Presenting rhythm: AP/VS AP-88.4%, LOOM OPERATOR-0.5% No AT/AF episodes noted. 3 Ventricular high rate episodes detected, available IEGM demonstrates NSVT for 1 second. Medications: Eliquis 5 mg, Plavix 75 mg, Toprol-XL 25 mg, Entresto 24-26 mg See scanned report. Office pacemaker follow up: 12/10/24 CareLink remote f/u 6 months. Ja Jacobo RN [facility] Enedina France MD CV CARDIAC SERVICES PRO CEDURES Final Result from Last 3 [place] [address] [facility] Advance Directives For more information, please contact: [phone] Documents on File Type Date Recorded Patient Technology Sales Specialist Expl anation Power of Store Stock Associate 01/27/2022 1:56 PM * Full Code (Latest Code Status on File) Date Activated Date Inactivated Comments 01/26/2022 11:48 PM 02/17/2022 9:54 PM Care Teams Airworthiness Inspector Relationship Specialty [place] [address] [address] PCP - General Family Medicine 03/29/22 Michael Ramires MD [address] [facility] [address] [place] [address] Consulting Physician Cardiology 02/17/22 [place] [address] [address] Consulting Physician Pulmonary Disease 02/17/22
== END 2024-10-31 10:04 | disposition home or self-care (01) ==
PROVIDERS: PCP Family Medicine Adolescent Medicine; Visit Provider Family Medicine Adolescent Medicine
DX: M54.50 Low back pain, unspecified (principal); G89.29 Other chronic pain
CPT/HCPCS: 72100

== ENCOUNTER 2024-11-26 10:47 | Outpatient (CLI) | payer OTHER, SELFPAY ==
--- NOTE | ~2024-11-26 | CT_ITS ---
EXAMINATION: CT lumbar spine wo con COMPARISON: None HISTORY: M54.9 - Dorsalgia, unspecified TECHNIQUE: Axial images were obtained through the spine without IV contrast. Coronal, sagittal reconstruction images were obtained from the axial views. CT scan performed using dose optimization techniques including the following automated exposure control; adjustment of mA and/or kV; use of iterative reconstruction technique. Automatic exposure control was used to reduce radiation dose. Permanent radiation dose record is archived to PACS. FINDINGS: Moderate loss of vertebral heights. Grade 1 anterolisthesis of L3 on L4 with grade 1 retrolisthesis of L4 on L5, no acute fracture is identified. There is moderate to severe loss of disc height throughout most marked at L3-4, L4-5 and L5-S1 with moderate to severe canal and foraminal stenosis at these levels and also L1-L2. Soft tissues unremarkable. Impression: Severe degenerative changes. MRI is recommended Reviewed, dictated and finalized at location P. Impression: Severe degenerative changes. MRI is recommended
--- OUTSIDE RECORDS SUMMARY | 2024-11-26 12:00 | XMS_ITS | Clinical Summary ---
Author Organization [facility] Address [address] [place] [address] Care Team Providers Care Seismograph Recorder Name Role Phone Michael Ramires MD Unavailable Elisabeth Bravo MD Unavailable [phone] Sanjiv Wang MD Primary Care Prov ider Allergies No known active allergies Medications cholecalciferol (VITAMIN D-3) 2000 unit tablet Take 1 tablet (2,000 Units total) by mouth nightly Active [id number] ORAL Take by mouth 2 (two) times [...] 12/22/2022 At risk for amiodarone toxicity with doughnut batter mixer u se 11/02/2022 Ischemic cardiomyopathy 07/02/2022 Heart failure with reduced ejection fraction Hx of CABG 06/04/2022 Shortness of breath 06/04/2022 Paroxysmal atrial fibrillation 03/29/2022 Cardiac pacemaker in situ 02/16/2022 Overview (11/01/2022): Medtronic Bella Dual Pacemaker. Dx; Sinus Node Dysfunction, Bradycardia, Postop Afib. DOI 02/12/2022-Ike. Carelink remote monitoring. Bradycardia 02/11/2022 Coronary artery disease invo lving [place] coronary artery of [place] heart without angina pectoris 01/26/2022 Encounters Date Type Department Care Team Description 09/05/2024 9:45 AM CDT Ancillary Procedure [facility] Medical Group Cardiology [address] [facility] [address] [place] [phone] Paroxysmal atrial fibrillation (HCC) (Primary Dx); Cardiac pacemaker in situ; Bradycardia; Sinoatrial node dysfunction (HCC) from Last 3 Months Surgical History Surgery [...] Date Comments Hx of CABG 02/02/2022 Diabetes PVD (peripheral vascular disease) High cholesterol Pacemaker [...] 01/27/2022 How often do you attend chur ch or amish services? Patient declined 01/27/2022 Do you belong to any clubs o r organizations such as congregation groups, unions, fraternal or athletic groups, or [...] place to sleep or slept in a correction (including now)? No 01/27/2022 Personal Safety Answer Date Recorded Have you ever been in or are you currently in a harmful physical or emotional relationship or is someone making you feel afraid or unsafe? Denies 01/19/2023 Sex and Gender Information Value Date Recorded Sex Assigned at Not on file Legal Sex Male 6:02 PM LOAN AND CREDIT MANAGER Gender Identity Male 02/18/2022 12:40 AM LOAN AND CREDIT MANAGER Sexual Orientation Straight 02/18/2022 12 :40 AM LOAN AND CREDIT MANAGER Obstetrics History Last Filed Vital Signs Vital Sign Reading Time Taken Comments Blood Pressure 122/62 08/13/2024 10:04 AM CDT Pulse 81 08/13/2024 10:04 AM CDT Temperature 36.7 C (98.1 F) 01/19/2023 12:10 PM LOAN AND CREDIT MANAGER Respiratory Rate 14 10/25/2023 7:50 AM CDT [...] Assessment 02/23/2024 02/22/2023, 01/19/2023, 12/21/2022 Covid-19 Vaccine (5 - 2024-2 6 season) 2024 11/11/2021, 12/31/2020, 04/03/2020, Additional history exists Influenza Vaccine (#1) 2024 , 01/03/2023, 11/14/2021, Additional history exists DTaP/Tdap/Td Vaccine (4 - Td or Tdap) 07/03/2033 07/04/2023, 10/12/2012, 09/14/2012 Pneumococcal vaccine 65+ Completed 017, 01/16/2015, 05/30/2014, Additional history exists Zoster Vaccine Completed 04/16/2024, 04/15, 08/30/2018, Additional history exists Medical Devices Implanted Type Area Client Insights Consultant Device Identifier Shelf Expiration Date Model / Serial / Lot Medtronic Inc Capsurefix Novus 6.2fr 2mm 52cm Bipolar Screw In Implantable Latex Free 5076-52 - [id number] - [id number] Implanted:Qty: 1 on 02/12/2022 by Michael Ramires MD at [facility] Lead Medtronic Inc 11/14/2023 5076-52 / [id number] / Description:RA lead Medtronic Inc Capsurefix Novus 6.2fr 2mm 58cm Bipolar Screw In Implantable 5076-58 - [id number] - [id number] Implanted:Qty: 1 on 02/12/2022 by Michael Ramires MD at [facility] Lead Medtronic Inc 11/21/2023 5076-58 / [id number] / Description:RV lead Medtronic Inc [place] S Mri Surescan 50.8x46.6mm 2 Chamber 7.4mm Pacemaker 22.5gm W3dr01 - [id number] - [id number] Implanted:Qty: 1 on 02/12/2022 by Michael Ramires MD at [facility] Pacemaker Medtronic Inc 06/12/2023 W3DR01 / [id number] / Doron Medical Plate Bone Low Profile 6 Hole H Shape Ti 115.102.06 - [id number] Implanted:Qty: 1 on 02/02/2022 by Ursula Yuan MD at [facility] Plate N/A: Chest Wall [employer] Inc 115.102.0 6 / / Doron Medical Plate Bone Low Profile 4 Hole Box Ti 115.103.04 - [id number] Implanted:Qty: 1 on 02/02/2022 by Ursula Yuan MD at [facility] Plate N/A: Chest Wall [employer] Inc 115.103.0 4 / / Doron Medical Plate Bone Low Profile 6 Hole O Concave Ti 115.604.06 - [id number] Implanted:Qty: 1 on 02/02/2022 by Ursula Yuan MD at [facility] Plate N/A: Chest Wall [employer] Inc 115.604.0 6 / / Doron Medical Screw Bone Slf Drl Full Thread Locking 3.5x16mm Ti 100.035.16 - [id number] Implanted:Qty: 16 on 02/02/2022 by Ursula Yuan MD at [facility] Screw N/A: Chest Wall [employer] Inc 100.035.1 6 / / Access Closure Inc Mynx Control 6-7fr 2 Mode Balloon Catheter Sealant Lock Syringe [id number] - [id number] Implanted:Qty: 1 on 01/28/2022 by Fortino Rico MD at [facility] Access Closure Inc 01/14/2024 [id number] / / [id number] Cardiva Medical Inc Vascade Mvp 6-12fr Venous Closure [id number] - [id number] Implanted:Qty: 1 on 01/19/2023 by Michael Ramires MD at [facility] Sinopsys [employer] Medical Inc 10/21/2024 800-612C- 10U / / [id number] Cardiva Medical Inc Vascade Mvp 6-12fr Venous Closure [id number] - [id number] Implanted:Qty: 1 on 01/19/2023 by Michael Ramires MD at [facility] [employer] 10/21/2024 800-612C- 10U / / [id number] Cardiva Medical Inc Vascade Mvp 6-12fr Venous Closure [id number] - [id number] Implanted:Qty: 1 on 01/19/2023 by Michael Ramires MD at [facility] [employer] 10/21/2024 800-612C- 10U / / [id number] Procedures Procedure Name Priority Date/Time Associated Diagnosis Comments DEVICE CHECK - REMOTE Routine 09/05/2024 8:28 AM CDT Cardiac pacemaker in situ Bradycardia Sinoatrial node dysfunction (HCC) from Last 3 Months Results * DEVICE CHECK - REMOTE (09/05/2024 8:28 AM CDT) Anatomical Region Laterality Modality Other Narrative 10/11/2024 3:28 PM CDT Medtronic Bella Dual Pacemaker. Dx; Sinus Node Dysfunction, Bradycardia, Postop Afib. DOI 02/12/2022-Ike. Carelink remote monitoring. Routine AAIR < > DDDR Pacemaker Remote. Transmission attached. Battery status: 3.02 V , 11.0 years remaining battery life to CHARISMA. Stable lead impedances, pacing and sensing thresholds. Presenting rhythm: AP/VS AP-88.4%, SAMPLE CLERK-0.5% No AT/AF episodes noted. 3 Ventricular high rate episodes detected, available IEGM demonstrates NSVT for 1 second. Medications: Eliquis 5 mg, Plavix 75 mg, Toprol-XL 25 mg, Entresto 24-26 mg See scanned report. Office pacemaker follow up: 12/10/24 CareLink remote f/u 6 months. Ja Jacobo RN [facility] Enedina France MD CV CARDIAC SERVICES PRO CEDURES Final Result from Last [address] [facility] Advance Directives For more information, please contact: [phone] Documents on File Type Date Recorded Patient Package Reinspector Expl anation Power of Oracle Database Developer 01/27/2022 1:56 PM * Full Code (Latest Code Status on File) Date Activated Date Inactivated Comments 01/26/2022 11:48 PM 02/17/2022 9:54 PM Care Teams Seismograph Recorder Relationship Specialty [place] [address] [facility] [address] [place] [id number] PCP - General Family Medicine 03/29/22 Michael Ramires MD [address] [place] [address], [place] [address] Consulting Physician Cardiology 02/17/22 [place] [address] [address] [place] [address] Consulting Physician Pulmonary Disease 02/17/22
--- OUTSIDE RECORDS SUMMARY | 2024-11-26 12:00 | XMS_ITS | Clinical Summary ---
Author Organization [facility] Address [facility] [place] [address] Care Team Providers Care Quirk Sander Name Role Phone Unavailable Primary Care Provider [...] Comments Blood Pressure 138/64 04/08/2016 1:34 PM GRAIN INSPECTOR Pulse 69 04/08/2016 1:34 PM GRAIN INSPECTOR Temperature - - Respiratory Rate - - Oxygen Saturation - - Inhaled Oxygen Concentration - - Weight 106.1 kg (234 lb) 04/08/2016 1:34 PM GRAIN INSPECTOR Height 188 cm (6' 2) 04/08/2016 1:34 PM GRAIN INSPECTOR Body Mass Index 30.04 04/08/2016 1:34 PM GRAIN INSPECTOR Plan of Treatment Health Maintenance Due Date Last Done Comments Hepatitis C 1963 DTaP, Tdap and Td Vaccines ( 1 - Tdap) [birth year]28/1964 Pneumococcal Vaccine: 50+ Ye ars (1 of 1 - PCV) 1994 Zoster Vaccines (1 of 2) 1994 RSV Immunization or 60+ Years (1 - 1-dose 75+ series) 12/28/2019 COVID-19 Vaccine ( - 2023-2 5 season) 2024 Influenza Adult (#1) 2024 Meningococcal B Vaccine Aged Out No l onger eligible based on patient's age to complete this topic Meningococcal Vaccine Aged Out No eun erik eligible based on patient's age to complete this topic RSV Immunizations Under 20 Months Aged Out No longer eligible based on patient's age to complete this topic
== END 2024-11-26 10:48 | disposition home or self-care (01) ==
PROVIDERS: PCP Family Medicine Adolescent Medicine; Visit Provider Nurse Practitioner Adult Health
DX: M51.360 Other intervertebral disc degeneration, lumbar region with discogenic back pain only (principal); M51.370 Other intervertebral disc degeneration, lumbosacral region with discogenic back pain only; M47.816 Spondylosis without myelopathy or radiculopathy, lumbar region; M48.061 Spinal stenosis, lumbar region without neurogenic claudication
CPT/HCPCS: 72131

== ENCOUNTER 2024-12-31 01:53 | Day surgery (SDC) | payer OTHER, SELFPAY ==
[2024-12-17 14:33] VITALS: BMI 28.0
--- NOTE | 2024-12-17 14:51 | PC.NURSE ---
Addendum entered by Mariah Berkowitz RN 12/17/24 15:10: Dr Dale office (BRANDEE Burrell ) called back- pt to hold Plavix for 7 days (None after 12/23/24) and Eliquis for 3 days ( None after 12/27/24) pre procedure. Pt called and aware of both - pt will resume after SUYAPA procedure as directed. FARIHA Original Note: [facility] has started construction of its new state of the art ER which will open Spring 2026. With this, we anticipate parking may be a challenge for some our surgical patients and families. Parking spaces are limited but are available for all Surgical, obstetrics, and ER patients sharing this lot. If you arrive and find you are having a hard time finding a parking space, please note that we understand the challenges, please drive around the hospital and park near Hospital Entrance 1. When you enter this entrance, you can ask a volunteer to direct or take you back to the surgical waiting area to check in. We appreciate everyone?s understanding of these expected challenges while we build for your future. Report to the Outpatient Waiting Room, entrance under the green pavilion located off [facility], at time __1245pm on date __12/31/24 . Planned Procedure Time: __1:45pm .? Time changes happen often and if your time is changed the preop area will call you the afternoon before. - You and your visitor will be asked to self-screen and do not enter if you have any COVID symptoms. Please call surgeon if you need to reschedule. - A mask is optional within the hospital at this time. Patients may have Breakfast and take all meds ( except those listed) and have liquids until 11:45am. Then nothing but sip of water with meds after if needed until surgery is completed.. Take only the following medications with a SIP of water on the morning of surgery: All meds DO NOT STOP ANY OF YOUR OTHER PRESCRIPTION MEDICATIONS PRIOR TO SURGERY EXCEPT THE FOLLOWING Hold all vitamins and supplements for 3 days per anesthesiologist. Medications to discontinue per physician HOLD ELIQUIS AND PLAVIX PER DR DALE Date to take last dose Dr Dale office to call pt to confirm. Pt thinks 3 days on both, but needs clarification. Please no make-up, nail persian, hairspray, perfume, deodorant, or body powder the day of surgery.? No jewelry (including any body piercings) or valuables the day of surgery, leave them at home.? Please take a shower or bath the night before, or the morning of, surgery with an antibacterial soap.? Wear comfortable, loose fitting clothing.? - Jewelry must be removed prior to entering the operating room.? Rings and piercings that are not removed may be cut off. - The hospital will not accept responsibility for valuables.? - Please leave all valuables, including medications, at home the day of surgery. If you are going home after surgery, a licensed hog driver must drive you home.? - NO public transportation without another adult if you receive anesthesia. - We recommend that an adult stay with you for 24 hours following discharge. - We also recommend that you do not drive, make important decision, drink alcoholic beverages, or take any drugs that were not prescribed by your health care provider for at least 24 hours after your discharge time. Pt is aware NO DRIVING FOR 24 HOURS POST Procedure. Follow any additional instructions given to you from your surgeon. Telephone instructions given to Patient and asked if any additional questions and then verbalized understanding. Patient advised to call surgeon office or pre surgery nurse liaison [phone] if any additional questions.
--- NOTE | ~2024-12-31 | XR_ITS ---
EXAM/PROCEDURE: XR fluoroscopy no charge HISTORY: LUMBAR PROGNOSTIC BLOCKS COMPARISON: None available. Fluoroscopy time: 38.7 seconds DAP: 4.1293 Renteria per square centimeter IMPRESSION: Fluoroscopic guidance for pain management. No radiologist present for this procedure. See procedure/operative notes for complete evaluation. Reviewed, dictated and finalized at location A. RMATION SECURITY ARCHITECT IMPRESSION: Fluoroscopic guidance for pain management. No radiologist present for this proc edure. See procedure/operative notes for complete evaluation.
--- NOTE | 2024-12-31 10:38 | WPDHPUPDATE1 ---
History and Physical Update Update Date/Time: 12/31/24 10:38 Patient scheduled for diagnostic/prognostic medial branch blocks bilaterally at L3, L4, L5 (# 1) addressing the bilateral L4-5, L5-S1 facet joints under fluoroscopic guidance with contrast control. History and Physical has been reviewed, including an updated exam of the patient. There are NO changes in the patient's condition. Risks, benefits, and alternatives have been discussed and questions answered. Patient agrees to proceed with procedure.
--- NOTE | 2024-12-31 10:40 | W.PM.PROC2 ---
Procedure Note - Detailed Date of Procedure 12/31/24 Pre-op Diagnosis lumbar spondylosis with chronic low back pain Post-op Diagnosis Same Procedure Performed Diagnostic bilateral Lumbar Medial Branch/Dorsal Ramus Blocks at L3, L4, L5 Treating the bilateral L4-5, L5-S1 Facet Joints Under Fluoroscopic Guidance and with Contrast Control. (4 levels blocked). Surgeon Samuel Chin MD Assistant Press Operator Offset None. Anesthesia Local Description of Procedure INFORMED CONSENT: Risks, benefits and alternatives to the procedure were discussed in detail with the patient who expressed explicit understanding and consent to proceed. Patient was informed verbally and in written form regarding the risks associated with the procedure including the low risk of serious infection, bleeding/bruising, allergic reaction, nerve or organ injury, paralysis, procedural site pain or discomfort, worsening pain and/or mobility, failure to treat and/or disfigurement. The patient expressed explicit understanding and consent to proceed. All materials required for the procedure were available prior to procedure start. Site and side were marked prior to procedure and confirmed in the presence of the patient. PROCEDURE IN DETAIL: The patient was brought to the procedural suite and placed in the prone position. Patient was made comfortable with use of pillows under the head/chest, hips and ankles. Skin overlying the injection site on the affected side(s) was prepared broadly with ChloraPrep applicator and draped in a sterile manner. Aseptic technique was used throughout. The endplates of the vertebral bodies at the site(s) of interest were aligned in the AP view. Ipsilateral oblique angulation was utilized to optimize visualization of the intersection between the superior articulating process and transverse process at each target site. Local anesthesia was established by infiltration with approximately 5 mL of 1% lidocaine via a 1-1/2 inch 27-gauge needle. A 25-gauge 5.0 inch Quincke spinal needle was advanced until the needle tip contacted periosteum at the target site, right L3. Lateral view was utilized to confirm the appropriate placement of the needle tip just anterior to the facet line and superior to the pedicle. In the Lateral view, 0.25 mL of Omnipaque 300 contrast medium was injected after negative aspiration for CSF, blood or other bodily fluid, showing appropriate extra-articular spread of contrast without evidence of intravascular, foraminal or intrathecal placement. A 0.5 mL solution of 0.5% PF bupivacaine was injected after negative repeat aspiration. Appropriate spread of the injectate was confirmed with washout of previously injected contrast. No parasthesias were elicited. Needle was removed completely intact without difficulty. The same exact procedure was repeated for all remaining levels on the ipsilateral side, right L4, L5 medial branches/dorsal ramus, modified as necessary to accommodate for the new target location with identical findings and results and no evidence of complication. The same exact procedure was repeated for all remaining levels on the contralateral side, left L3, L4, L5 medial branches/dorsal ramus, modified as necessary to accommodate for the new target location with identical findings and results and no evidence of complication. Images were saved and documented in the patient chart. Patient's skin was cleaned and sterile bandage applied. The patient tolerated the procedure well. The patient was transported to the recovery area in stable condition where they were observed for an appropriate amount of time prior to discharge, without evidence of complication. Patient was instructed on the appropriate completion of a pain diary over the next 12-24 hours. The patient was instructed to avoid excessive activity for the next 48 hours, including climbing and frequent use of stairs. Showers only for 48 hours. They were instructed not to drive or operate heavy machinery for 24 hours. They are to monitor for severe headaches, fevers, chills, night sweats, erythema/swelling at the site or any other signs of infection, bleeding/bruising, bowel or bladder changes as well as new pain, weakness or numbness in the upper or lower extremity. Should they notice these changes, they are instructed to call our office immediately or report directly to the nearest Emergency Department if no answer or if after posted office hours. COMPLICATIONS: None COMMENTS: None CONTRAST WASTED: 28.5mL Omnipaque 300. Complications No immediate complications Condition Stable Disposition Same day [facility] Billing Surgery - Charge Forward: Surgery Billing
[2024-12-31 11:22] VITALS: BP 161/67; PULSE 76; RESP 16; TEMP 36.2; O2SAT 97
[2024-12-31 11:46] VITALS: BP 183/89; PULSE 76; RESP 18; O2SAT 94
[2024-12-31] MEDS: BUPivacaine HCL 0.5% 10 ML AMP 3 ML INFILTRATE (11:49)
[2024-12-31 11:56] VITALS: BP 149/76; PULSE 72; RESP 18; O2SAT 93
[2024-12-31 11:59] VITALS: BP 177/82; PULSE 74; RESP 18; O2SAT 94
== END 2024-12-31 12:12 | disposition home or self-care (01) ==
PROVIDERS: PCP Family Medicine Adolescent Medicine; Visit Provider Anesthesiology Pain Medicine
PROC: (CPT 64493; principal; 2024-12-31 12:15)
DX: M47.816 Spondylosis without myelopathy or radiculopathy, lumbar region (principal); M54.50 Low back pain, unspecified; G89.29 Other chronic pain; I48.0 Paroxysmal atrial fibrillation; I25.10 Atherosclerotic heart disease of native coronary artery without angina pectoris; K21.9 Gastro-esophageal reflux disease without esophagitis; E11.9 Type 2 diabetes mellitus without complications; I10 Essential (primary) hypertension; J44.9 Chronic obstructive pulmonary disease, unspecified; Z87.891 Personal history of nicotine dependence
CPT/HCPCS: 64493; 64494 ×2; 64495 ×2; 99199

== ENCOUNTER 2025-01-15 03:19 | Day surgery (SDC) | payer OTHER, SELFPAY ==
[2025-01-08 10:53] VITALS: BMI 28.5
--- NOTE | 2025-01-08 11:01 | PC.NURSE ---
[facility] has started construction of its new state of the art ER which will open Spring 2026. With this, we anticipate parking may be a challenge for some our surgical patients and families. Parking spaces are limited but are available for all Surgical, obstetrics, and ER patients sharing this lot. If you arrive and find you are having a hard time finding a parking space, please note that we understand the challenges, please drive around the hospital and park near Hospital Entrance 1. When you enter this entrance, you can ask a volunteer to direct or take you back to the surgical waiting area to check in. We appreciate everyone?s understanding of these expected challenges while we build for your future. Report to the Outpatient Waiting Room, entrance under the green pavilion located off [address], at time ___0930am____ on date __01/15/25 . Planned Procedure Time: _1030am .? Time changes happen often and if your time is changed the preop area will call you the afternoon before. - You and your visitor will be asked to self-screen and do not enter if you have any COVID symptoms. Please call surgeon if you need to reschedule. - A mask is optional within the hospital at this time. Patients may have early breakfast and liquids till 0830am, then Nothing except sips of water if needed w meds till post op. - No smoking, or chewing tobacco (or any form of nicotine)& No chewing gum, candy or mints am of surgery. Take only the following medications with a SIP of water on the morning of surgery: All am meds except Plavix and Eliquis DO NOT STOP ANY OF YOUR OTHER PRESCRIPTION MEDICATIONS PRIOR TO SURGERY EXCEPT THE FOLLOWING Hold all vitamins and supplements for 3 days per anesthesiologist. Medications to discontinue per physician HOLD Eliquis for 3 days prior and HOLD Plavix [address] DALE Date to take last dose___of Plavix 01/07/25 and Last dose of Eliquis is 01/01/25 Please no make-up, nail mauritanian, hairspray, perfume, deodorant, or body powder the day of surgery.? No jewelry (including any body piercings) or valuables the day of surgery, leave them at home.? Please take a shower or bath the night before, or the morning of, surgery with an antibacterial soap.? Wear comfortable, loose fitting clothing.? - Jewelry must be removed prior to entering the operating room.? Rings and piercings that are not removed may be cut off. - The hospital will not accept responsibility for valuables.? - Please leave all valuables, including medications, at home the day of surgery. If you are going home after surgery, a licensed hog driver must drive you home.? - NO public transportation without another adult if you receive anesthesia. - We recommend that an adult stay with you for 24 hours following discharge. - We also recommend that you do not drive, make important decision, drink alcoholic beverages, or take any drugs that were not prescribed by your health care provider for at least 24 hours after your discharge time. NO DRIVING FOR [address] op per [address] DALE - pt aware. Follow any additional instructions given to you from your surgeon. Telephone instructions given to ___Patient and asked if any additional questions and then verbalized understanding. Patient advised to call surgeon office or pre surgery nurse liaison [phone] if any additional questions.
--- NOTE | ~2025-01-15 | XR_ITS ---
XR fluoroscopy no charge Indication: Nerve block bilateral L3, L4 and L5 TECHNIQUE: Fluoroscopy used during Nerve block bilateral L3, L4 and L5 performed by [Samuel Chin MD] on 01/15/2025. 45 seconds of fluoroscopy with 9 4 skull images captured. FINDINGS: Correlate with procedure note. IMPRESSION: Fluoroscopy used during Nerve block bilateral L3, L4 and L5. Reviewed, dictated and finalized at location I. [employer]
--- OUTSIDE RECORDS SUMMARY | 2025-01-15 03:22 | XMS_ITS | Clinical Summary ---
Author Organization [facility] Address [address] [place] [address] Care Team Providers Care Automation Mechanic Name Role Phone Unavailable Primary Care Provider [...] Comments Blood Pressure 138/64 04/08/2016 1:34 PM BARGE ENGINEER Pulse 69 04/08/2016 1:34 PM BARGE ENGINEER Temperature - - Respiratory Rate - - Oxygen Saturation - - Inhaled Oxygen Concentration - - Weight 106.1 kg (234 lb) 04/08/2016 1:34 PM BARGE ENGINEER Height 188 cm (6' 2) 04/08/2016 1:34 PM BARGE ENGINEER Body Mass Index 30.04 04/08/2016 1:34 PM BARGE ENGINEER Plan of Treatment Health Maintenance Due Date Last Done Comments DTaP, Tdap and Td Vaccines ( 1 - Tdap) 12/28/1964 Pneumococcal Vaccine: 50+ Ye ars (1 of 1 - PCV) 1994 Zoster Vaccines (1 of 2) 1994 RSV Immunization or 60+ Years (1 - 1-dose 75+ series) 12/28/2019 COVID-19 Vaccine (1 - 2024-2 6 season) 2024 Influenza Adult (#1) 2024 Hepatitis A Vaccines Aged Out No long er eligible based on patient's age to complete this topic Meningococcal B Vaccine Aged Out No l onger eligible based on patient's age to complete this topic Meningococcal Vaccine Aged Out No eun erik eligible based on patient's age to complete this topic RSV Immunizations Under 20 Months Aged Out No longer eligible based on patient's age to complete this topic
--- OUTSIDE RECORDS SUMMARY | 2025-01-15 03:22 | XMS_ITS | Clinical Summary ---
Author Organization [facility] Address [address] [place] [address] Care Team Providers Care Baker Helper Name Role Phone Michael Ramires MD Unavailable Elisabeth Bravo MD Unavailable Sanjiv Wang MD Primary Care Prov ider Allergies No known active allergies Medications cholecalciferol (VITAMIN D-3) 2000 unit tablet Take 1 tablet (2,000 Units total) by mouth nightly Active [id number] ORAL Take by mouth 2 (two) times [...] 12/22/2022 At risk for amiodarone toxicity with oil heaterman u se 11/02/2022 Ischemic cardiomyopathy 07/02/2022 Heart failure with reduced ejection fraction Hx of CABG 06/04/2022 Shortness of breath 06/04/2022 Paroxysmal atrial fibrillation 03/29/2022 Cardiac pacemaker in situ 02/16/2022 Overview (11/01/2022): Medtronic Bella Dual Pacemaker. Dx; Sinus Node Dysfunction, Bradycardia, Postop Afib. DOI 02/12/2022-Ike. Carelink remote monitoring. Bradycardia 02/11/2022 Coronary artery disease invo lving [place] coronary artery of [place] heart without angina pectoris 01/26/2022 Encounters Date Type Department Care Team Description 12/19/2024 3:30 PM GINSENG FARMER Ancillary Procedure [facility] Cardiology [address] [place] [address] Cardiac pacemaker in situ (Primary Dx); Bradycardia; Paroxysmal atrial fibrillation (HCC); Sinus node dysfunction (HCC) 12/18/2024 Orders Only [facility] Cardiology [address] [place] [address] Zoltan Luna MD Atrial fibrillation, unspecified type (HCC) (Primary Dx); Bradycardia; Atrial flutter, unspecified type (HCC); Cardiac pacemaker in situ; Sinoatrial node dysfunction (HCC) from Last 3 [...] How often do you attend chur or orthodox services? Patient declined 01/27/2022 Do you belong to any clubs o r organizations such as congregational groups, unions, fraternal or athletic groups, or [...] place to sleep or slept in a usp (including now)? No 01/27/2022 Personal Safety Answer Date Recorded Have you ever been in or are you currently in a harmful physical or emotional relationship or is someone making you feel afraid or unsafe? Denies 01/19/2023 Sex and Gender Information Value Date Recorded Sex Assigned at Not on file Legal Sex Male 6:02 PM GINSENG FARMER Gender Identity Male 02/18/2022 12:40 AM GINSENG FARMER Sexual Orientation Straight 02/18/2022 12 :40 AM GINSENG FARMER Last Filed Vital Signs Vital Sign Reading Time Taken Comments Blood Pressure 122/62 08/13/2024 10:04 AM CDT Pulse 81 08/13/2024 10:04 AM CDT Temperature 36.7 C (98.1 F) 01/19/2023 12:10 PM GINSENG FARMER Respiratory Rate 14 10/25/2023 7:50 AM CDT Oxygen Saturation 97% 08/13/2024 10:04 AM CDT Inhaled Oxygen Concentration - - Weight 102.1 kg (225 lb) 08/13/2024 10:04 AM CDT Height 188 cm (6' 2) 08/13/2024 10:04 AM CDT Body Mass Index 28.89 08/13/2024 10:04 AM CDT Plan of Treatment Health Maintenance Due Date Last Done Comments Depression Screening 1945 Hepatitis B Screening 1962 Well Visit 65+ 2009 Fall Risk Assessment 02/23/2024 02/22/2023, 01/19/2023, 12/21/2022 Covid-19 Vaccine (2024-2 6 season) 2024 11/11/2021, 12/31/2020, 04/14/2020, Additional history exists Influenza Vaccine (#1) 2024 , 01/03/2023, 11/14/2021, Additional history exists DTaP/Tdap/Td Vaccine (4 - Td or Tdap) 07/03/2033 07/04/2023, 10/12/2012, 09/14/2012 Pneumococcal vaccine 65+ Completed 017, 01/16/2015, 05/30/2014, Additional history exists Zoster Vaccine Completed 04/16/2024, 04/15, 08/30/2018, Additional history exists Medical Devices Implanted Type Area Auto Salvage Worker Device Identifier Shelf Expiration Date Model / Serial / Lot Medtronic Inc Capsurefix Novus 6.2fr 2mm 52cm Bipolar Screw In Implantable Latex Free 5076-52 - [id number] - [id number] Implanted:Qty: 1 on 02/12/2022 by Michael Ramires MD at [facility] Lead Medtronic Inc 11/14/2023 5076-52 / [id number] / Description:RA lead Medtronic Inc Capsurefix Novus 6.2fr 2mm 58cm Bipolar Screw In Implantable 5076-58 - [id number] - [id number] Implanted:Qty: 1 on 02/12/2022 by Michael Ramires MD at [facility] Lead Medtronic Inc 11/21/2023 5076-58 / [id number] / Description:RV lead Medtronic Inc [place] S Mri Surescan 50.8x46.6mm 2 Chamber 7.4mm Pacemaker 22.5gm [id number] - [id number] - [id number] Implanted:Qty: 1 on 02/12/2022 by Michael Ramires MD at [facility] Pacemaker Medtronic Inc 06/12/2023 [id number] / [id number] / Doron Medical Plate Bone Low Profile 6 Hole H Shape Ti 115.102.06 - [id number] Implanted:Qty: 1 on 02/02/2022 by Ursula Yuan MD at [facility] Plate N/A: Chest Wall [employer] 115.102.0 6 / / Doron Medical Plate Bone Low Profile 4 Hole Box Ti 115.103.04 - [id number] Implanted:Qty: 1 on 02/02/2022 by Ursula Yuan MD at [facility] Plate N/A: Chest Wall [employer] 115.103.0 4 / / Doron Medical Plate Bone Low Profile 6 Hole O Concave Ti 115.604.06 - [id number] Implanted:Qty: 1 on 02/02/2022 by Ursula Yuan MD at [facility] Plate N/A: Chest Wall [employer] 115.604.0 6 / / Doron Medical Screw Bone Slf Drl Full Thread Locking 3.5x16mm Ti 100.035.16 - [id number] Implanted:Qty: 16 on 02/02/2022 by Ursula Yuan MD at [facility] Screw N/A: Chest Wall [employer] 100.035.1 6 / / Access Closure Inc Mynx Control 6-7fr 2 Mode Balloon Catheter Sealant Lock Syringe [id number] - [id number] Implanted:Qty: 1 on 01/28/2022 by Fortino Rico MD at [facility] Access [employer] Inc 01/14/2024 [id number] / / [id number] [employer]iva [employer] Inc Vascade Mvp 6-12fr Venous Closure [id number] - [id number] Implanted:Qty: 1 on 01/19/2023 by Michael Ramires MD at [facility] Medical Inc 10/21/2024 800-612C- 10U / / [id number] [employer] Inc Vascade Mvp 6-12fr Venous Closure [id number] - [id number] Implanted:Qty: 1 on 01/19/2023 by Michael Ramires MD at [facility] 10/21/2024 800-612C- 10U / / [id number] [employer] Inc Vascade Mvp 6-12fr Venous Closure [id number] - [id number] Implanted:Qty: 1 on 01/19/2023 by Michael Ramires MD at [facility] 10/21/2024 800-612C- 10U / / [id number] Procedures Procedure Name Priority Date/Time Associated Diagnosis Comments DEVICE CHECK - IN OFFICE Routine 12/19/2024 3:09 PM GINSENG FARMER Bradycardia from Last 3 Months Results * DEVICE CHECK - IN OFFICE (12/19/2024 3:09 PM GINSENG FARMER) Anatomical Region Laterality Modality Other Narrative 12/20/2024 10:41 AM GINSENG FARMER Medtronic Bella Dual Pacemaker. Dx; Sinus Node Dysfunction, Bradycardia, Postop Afib/Aflutter. DOI 02/12/2022-Kahanda. Carelink 06/03/22-Cardioversion. Supervising MD: Dr Andrea. Office DDD Pacemaker device evaluation demonstrated appropriate device function. Transmission attached. Stable battery voltage, lead impedances, pacing and sensing thresholds. Charge time and Shock impedance. Left pectoral incision well healed without signs of infection noted. AP-87.9%, POLICY SPECIALIST-0.7%. Presenting rhythm-APVS. Underlying rhythm-SR. No AT/AF episodes since 06/09/2022. 1 Fast A&V episode noted on 10/12/24, iegm SVT @ 194 bpm, 31 second duration. 9 Ventricular arrhythmias detected, iegm's NSVT and SVT, 160-200 bpm, 4 seconds max duration. Medication: Eliquis, Entresto, Toprol XL. No programming changes made to device settings, See scanned report. Carelink remote f/u 03/27/2025. Office device f/u 02/19/2026. Liliana Ramos, BRANDEE [facility] Enedina France MD CV CARDIAC SERVICES PRO CEDURES Final Result from Last 3 Months Insurance [facility] Advance Directives For more information, please contact: [phone] Documents on File Type Date Recorded Patient Stage Set Up Worker Expl anation Power of Animal Tech 01/27/2022 1:56 PM * Full Code (Latest Code Status on File) Date Activated Date Inactivated Comments 01/26/2022 11:48 PM 02/17/2022 9:54 PM Care Teams Baker Helper Relationship Specialty [place] [address] [place] [address] PCP - General Family Medicine 03/29/22 Michael Ramires MD [address] [facility] [address], [place] [address] Consulting Physician Cardiology 02/17/22 [place] [address] [place] [id number] Consulting Physician Pulmonary Disease 02/17/22
--- NOTE | 2025-01-15 06:11 | WPDHPUPDATE1 ---
History and Physical Update Update Date/Time: 01/15/25 06:11 History and Physical has been reviewed, including an updated exam of the patient. There are NO changes in the patient's condition. Risks, benefits, and alternatives have been discussed and questions answered. Patient agrees to proceed with procedure.
--- NOTE | 2025-01-15 06:13 | P.OP_ITS ---
Procedure Note - Detailed Date of Procedure 01/15/25 Pre-op Diagnosis Lumbar spondylosis, chronic low back pain Post-op Diagnosis Same Procedure Performed Diagnostic Bilateral Lumbar Medial Branch/Dorsal Ramus Blocks at L3, L4, L5 Treating the Bilateral L4-5, L5-S1 Facet Joints Under Fluoroscopic Guidance and with Contrast Control. (4 levels blocked). Surgeon Samuel Chin MD Gastroenterology Technician None. Anesthesia Local Description of Procedure INFORMED CONSENT: Risks, benefits and alternatives to the procedure were discussed in detail with the patient who expressed explicit understanding and consent to proceed. Patient was informed verbally and in written form regarding the risks associated with the procedure including the low risk of serious infection, bleeding/bruising, allergic reaction, nerve or organ injury, paralysis, procedural site pain or discomfort, worsening pain and/or mobility, failure to treat and/or disfigurement. The patient expressed explicit understanding and consent to proceed. All materials required for the procedure were available prior to procedure start. Site and side were marked prior to procedure and confirmed in the presence of the patient. PROCEDURE IN DETAIL: The patient was brought to the procedural suite and placed in the prone position. Patient was made comfortable with use of pillows under the head/chest, hips and ankles. Skin overlying the injection site on the affected side(s) was prepared broadly with ChloraPrep applicator and draped in a sterile manner. Aseptic technique was used throughout. The endplates of the vertebral bodies at the site(s) of interest were aligned in the AP view. Ipsilateral oblique angulation was utilized to optimize visualization of the intersection between the superior articulating process and transverse process at each target site. Local anesthesia was established by infiltration with approximately 5 mL of 1% lidocaine via a 1-1/2 inch 27-gauge needle. A 25-gauge 3.5 inch Quincke spinal needle was advanced until the needle tip contacted periosteum at the target site, right L3. Lateral view was utilized to confirm the appropriate placement of the needle tip just anterior to the facet line and superior to the pedicle. In the Lateral view, 0.25 mL of Omnipaque 300 contrast medium was injected after negative aspiration for CSF, blood or other bodily fluid, showing appropriate extra-articular spread of contrast without evidence of intravascular, foraminal or intrathecal placement. A 0.5 mL solution of 2.0% PF Lidocaine was injected after negative repeat aspiration. Appropriate spread of the injectate was confirmed with washout of previously injected contrast. No parasthesias were elicited. Needle was removed completely intact without difficulty. The same exact procedure was repeated for all remaining levels on the ipsilateral side, right L4, L5 medial branches/dorsal ramus, modified as necessary to accommodate for the new target location with identical findings and results and no evidence of complication. The same exact procedure was repeated for all remaining levels on the contralateral side, left L3, L4, L5 medial branches/dorsal ramus, modified as necessary to accommodate for the new target location with identical findings and results and no evidence of complication. Images were saved and documented in the patient chart. Patient's skin was cleaned and sterile bandage applied. The patient tolerated the procedure well. The patient was transported to the recovery area in stable condition where they were observed for an appropriate amount of time prior to discharge, without evidence of complication. Patient was instructed on the appropriate completion of a pain diary over the next 12-24 hours. The patient was instructed to avoid excessive activity for the next 48 hours, including climbing and frequent use of stairs. Showers only for 48 hours. They were instructed not to drive or operate heavy machinery for 24 hours. They are to monitor for severe headaches, fevers, chills, night sweats, erythema/swelling at the site or any other signs of infection, bleeding/bruising, bowel or bladder changes as well as new pain, weakness or numbness in the upper or lower extremity. Should they notice these changes, they are instructed to call our office immediately or report directly to the nearest Emergency Department if no answer or if after posted office hours. COMPLICATIONS: None COMMENTS: None CONTRAST WASTED: 28.5mL Omnipaque 300. Complications No immediate complications Condition Stable Disposition Same day [facility] Billing Surgery - Charge Forward: Surgery Billing
[2025-01-15 08:28] VITALS: BP 144/71; PULSE 87; RESP 20; TEMP 36.4; O2SAT 100
[2025-01-15 08:56] VITALS: BP 139/72; PULSE 76; RESP 18; O2SAT 92
[2025-01-15] MEDS: LIDOCAINE 2% LOCAL INJ 20 ML VIAL 5 ML INFILTRATE (08:56)
[2025-01-15] MEDS: LIDOCAINE 1% PF INJ 5 ML VIAL INFILTRATE (08:58)
[2025-01-15 09:04] VITALS: BP 94/51; PULSE 69; RESP 16; O2SAT 92
[2025-01-15 09:09] VITALS: BP 155/64; PULSE 73; RESP 16; O2SAT 96
== END 2025-01-15 09:25 | disposition home or self-care (01) ==
PROVIDERS: PCP Family Medicine Adolescent Medicine; Visit Provider Anesthesiology Pain Medicine
PROC: (CPT 64493; principal; 2025-01-15 09:00)
DX: M47.816 Spondylosis without myelopathy or radiculopathy, lumbar region (principal); M48.061 Spinal stenosis, lumbar region without neurogenic claudication
CPT/HCPCS: 64493; 64494 ×2; 64495 ×2; 99199; J2003